=== PATIENT | male | born 1940 | race African-American/Black ===

== ENCOUNTER 2016-11-04 16:54 | Inpatient (IN) | payer MEDICARE, MEDICAID ==
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
[2016-11-04] MEDS ORDERED: Haloperidol Lactate 5 mg/mL 1mL Vial IM STA (17:17)
[2016-11-04] MEDS ORDERED: Haloperidol Lactate 5 mg/mL 1mL Vial ONE (17:34)
[2016-11-04 17:38] LABS: % BASOPHILS 0.2 % (0.0-2.0); % EOSINOPHILS 1.4 % (0.0-5.0); % LYMPHOCYTES 19.8 % (20.0-50.0); % MONOCYTES 7.3 % (2.0-10.0); % NEUTROPHILS 71.3 % (40.0-80.0); HEMATOCRIT 32.9 % (39.0-49.0); MEAN CELL VOLUME 83.4 fl (80-99); MEAN CORPUSCULAR HEMOGLOBIN 27.8 pg (27.0-31.0); MEAN CORPUSCULAR HGB CONC 33.4 pg (28.0-36.0); MEAN PLATELET VOLUME 6.8 fl; NEUTROPHILE ABSOLUTE 4.5 Th/cmm (1.8-8.0); PLATELET COUNT 304 Th/cmm (150-400); RED BLOOD COUNT 3.95 Mil/cmm (3.80-5.80); RED CELL DISTRIBUTION WIDTH 13.7 % (11.5-20.0); WHITE BLOOD COUNT 6.3 Th/cmm (4.8-10.8)
[2016-11-04 17:53] LABS: ACETAMINOPHEN < 10.0 ug/mL (10.0-30.0); ALB/GLOB RATIO 1.1 (1.0-1.8); ALKALINE PHOSPHATASE 58 U/L (34-104); ANION GAP 12.1 (7.0-16.0); BILIRUBIN,TOTAL 0.3 mg/dL (0.3-1.0); BUN - UREA NITROGEN 15 mg/dL (7-25); BUN/CREATININE RATIO 21.4; CALCIUM SERUM 9.9 mg/dL (8.6-10.3); CARBON DIOXIDE 26.7 mEq/L (21.0-31.0); CHLORIDE 97 mEq/L (98-107); CHOLESTEROL 131 mg/dL (<200); CREATININE - SERUM 0.7 mg/dL (0.7-1.3); GLUCOSE 122 mg/dL (70-105); POTASSIUM SERUM 3.8 mEq/L (3.5-5.1); SGOT 18 U/L (13-39); SGPT/ALT 14 U/L (7-52); SODIUM SERUM 132 mEq/L (136-145); TRIGLYCERIDES 53 mg/dL (<150)
[2016-11-04] MEDS ORDERED: Magnesium Hydroxide (MOM) 30 mL UDC PO PRN (20:34)
[2016-11-04] MEDS ORDERED: Maalox 30 mL Cup PO PRN (20:34)
[2016-11-04 21:18] LABS: AMPHETAMINE URINE NEGATIVE (NEGATIVE); BARBITURATES URINE NEGATIVE (NEGATIVE); METHADONE URINE NEGATIVE (NEGATIVE)
[2016-11-04] MEDS ORDERED: Albuterol Nebulizer 2.5mg/3mL HHN PRN (21:58)
[2016-11-04] MEDS ORDERED: Non-Formulary Item 1 EA (Meloxicam [Meloxicam] 7.5 MG) PO PRN (21:58)
--- NOTE | 2016-11-04 21:58 | Admit Criteria Form ---
Admit Criteria Forms - Admit Criteria Diagnosis: PSYCHIATRIC DISORDERS (Place 'X' for any and all applicable criteria): Ongoing inpatient care may be needed for 1 or more of the following(1)(2)(3)(4)( 6)(7)(8): [ ]I. Danger to self or others not manageable at lower level of care. [ ]II. Grave disability (eg, inability to perform self care necessary at lower level of care) [X ]III. Agitation or inappropriate behavior interfering with care for primary condition (eg, attempting to discontinue lines or drains prematurely, unable to cooperate with respiratory care) [ ]IV. Severe disability or disorder indicated by ALL of the following: [ ]a) Severe behavioral health disorder-related symptoms or condition indicated by 1 or more of the following: [ ]i) Severe problem with cognition, memory, judgment, or impulse control [ ]ii) Severe clinical manifestations (eg, hallucinations, delusions, other acute psychotic symptoms, johan, extreme agitation or anxiety) [ ]b) Patient management at lower level of care is not feasible until acute intervention or modification is initiated. Extended stay beyond goal length of stay for the primary condition may be needed until ALLof the following are present(1)(2)(3)(4)(722)(23): [ ]a) Danger to self or others is absent or manageable at lower level of care [ ]b) Behavior crisis management, including physical or chemical restraints, is required and is not available at a lower level of care. [ ]c) Behavioral symptoms (e.g., agitation, somnolence, inappropriate behavior) are present, and are not manageable at a lower level of care. [ ]d) Patient cannot understand follow-up treatment and crisis plan. [ ]e) Provider and supports are sufficiently available at lower level of care. [ ]f) Patient can participate (e.g., verify absence of plan for harm) and is in needed of monitoring. The original [facility] content created by [facility] [employer] has been revised. The portions of the content which have been revised are identified through the use of italic text or in bold, and [facility] [employer] has neither reviewed nor approved the modified material. All other unmodified content is copyright [facility]. Please see references footnoted in the original [facility] edition 2017 Admit Criteria Met?: Yes
[2016-11-04 22:05] LABS: URINE BILIRUBIN NEGATIVE (NEGATIVE); URINE BLOOD SMALL (NEGATIVE); URINE COLOR YELLOW; URINE GLUCOSE (UA) NEGATIVE (NEGATIVE); URINE KETONE NEGATIVE (NEGATIVE)
[2016-11-04 22:06] LABS: URINE BACTERIA NONE SEEN /hpf (NONE SEEN); URINE EPITHELIAL CELLS NONE SEEN /lpf (FEW); URINE PH 6.5; URINE PROTEIN NEGATIVE (NEGATIVE); URINE UROBILINOGEN 0.2 E.U./dL (0.2 - 1.0)
[2016-11-05] MEDS ORDERED: [UNRECOGNIZED DRUG - OTHER] PO SCH (09:00)
[2016-11-05] MEDS ORDERED: Non-Formulary Item 1 EA (Multivitamin [Multi-Day Vitamins] 1 TAB) PO SCH (09:00)
[2016-11-05] MEDS: Multivitamin Tab PO SCH (09:21)
--- NOTE | 2016-11-05 10:12 | Diagnostic Imaging Report ---
Portable chest x-ray HISTORY: Shortness of breath The heart is enlarged. There is a prominent aortic arch associated with atherosclerotic vascular calcification. No focal pulmonary processes. IMPRESSION: 1. No focal pulmonary processes 2. Cardiomegaly with atherosclerotic vascular changes
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
--- NOTE | 2016-11-05 13:41 | Internal Medicine Prog Note ---
Internal Medicine Subjective - Subjective Service Date: 11/05/16 ([facility] dictated [id number]) Internal Medicine Objective - Results Result Diagrams: 11/04/16 17:11/04/16 17: Recent Labs: Laboratory Last Values WBC 6.3 Th/cmm (4.8-10.8) 11/04/16 17: RBC 3.95 Mil/cmm (3.80-5.80) 11/04/16: Hgb 11.0 gm/dL (12.6-17.4) L 11/04/16: Hct 32.9 % (39.0-49.0) L 11/04/16: MCV 83.4 fl (80-99) 11/04/16: MCH 27.8 pg (27.0-31.0) 11/04/16: MCHC Differential 33.4 pg (28.0-36.0) 11/04/16: RDW 13.7 % (11.5-20.0) 11/04/16: Plt Count 304 Th/cmm (150-400) 11/04/16 17: MPV 6.8 fl 11/04/16 17: Neutrophils % 71.3 % (40.0-80.0) 11/04/16: Lymphocytes % 19.8 % (20.0-50.0) L 11/04/16: Monocytes % 7.3 % (2.0-10.0) 11/04/16: Eosinophils % 1.4 % (0.0-5.0) 11/04/16: Basophils % 0.2 % (0.0-2.0) 11/04/16 17: Sodium 132 mEq/L (136-145) L 11/04/16: Potassium 3.8 mEq/L (3.5-5.1) 11/04/16: Chloride 97 mEq/L (98-107) L 11/04/16 17: Carbon Dioxide 26.7 mEq/L (21.0-31.0) 11/04/16 17: Anion Gap 12.1 (7.0-16.0) 11/04/16 17: BUN 15 mg/dL (7-25) 11/04/16: Creatinine 0.7 mg/dL (0.7-1.3) 11/04/16: Est GFR ( Amer) TNP 11/04/16 17: Est GFR (Non-Af Amer) TNP 11/04/16: BUN/Creatinine Ratio 21.4 11/04/16: Glucose 122 mg/dL (70-105) H 11/04/16: Whole Bld Lactic Acid 2.70 mmol/L (0.60-1.99) H* 11/04/16: Calcium 9.9 mg/dL (8.6-10.3) 11/04/16: Total Bilirubin 0.3 mg/dL (0.3-1.0) 11/04/16: AST 18 U/L (13-39) 11/04/16: ALT 14 U/L (7-52) 11/04/16: Alkaline Phosphatase 58 U/L (34-104) 11/04/16: Troponin I 0.01 ng/mL (0.01-0.05) 11/04/16: Total Protein 7.5 gm/dL (6.0-8.3) 11/04/16: Albumin 3.9 gm/dL (4.2-5.5) L 11/04/16: Globulin 3.6 gm/dL 11/04/16: Albumin/Globulin Ratio 1.1 (1.0-1.8) 11/04/16: Triglycerides 53 mg/dL (<150) 11/04/16: Cholesterol 131 mg/dL (<200) 11/04/16: LDL Cholesterol Direct 66 mg/dL (75-193) L 11/04/16: HDL Cholesterol 50 mg/dL (23-92) 11/04/16: TSH 1.69 uIU/ml (0.34-5.60) 11/04/16: Urine Source RANDOM 11/04/16 20:00 Urine Color YELLOW 11/04/16 20:00 Urine Clarity CLEAR (CLEAR) 11/04/16 20:00 Urine pH 6.5 11/04/16 20:00 Ur Specific [place] 1.010 (1.005-1.030) 11/04/16 20:00 Urine Protein NEGATIVE mg/dL (NEGATIVE) 11/04/16 20:00 Urine Glucose (UA) NEGATIVE mg/dL (NEGATIVE) 11/04/16 20:00 Urine Ketones NEGATIVE mg/dL (NEGATIVE) 11/04/16 20:00 Urine Blood SMALL (NEGATIVE) H 11/04/16 20:00 Urine Nitrate NEGATIVE (NEGATIVE) 11/04/16 20:00 Urine Bilirubin NEGATIVE (NEGATIVE) 11/04/16 20:00 Urine Urobilinogen 0.2 E.U./dL (0.2 - 1.0) 11/04/16 20:00 Ur Leukocyte Esterase TRACE (NEGATIVE) H 11/04/16 20:00 Urine RBC 2-5 /hpf (0-5) H 11/04/16 20:00 Urine WBC 2-5 /hpf (0-5) H 11/04/16 20:00 Ur Epithelial Cells NONE SEEN /lpf (FEW) 11/04/16 20:00 Urine Bacteria NONE SEEN /hpf (NONE SEEN) 11/04/16 20:00 Salicylates < 25.0 mg/L (30.0-100.0) L 11/04/16 17:29 Urine Opiates Screen NEGATIVE (NEGATIVE) 11/04/16 20:00 Urine Methadone Screen NEGATIVE (NEGATIVE) 11/04/16 20:00 Acetaminophen < 10.0 ug/mL (10.0-30.0) L 11/04/16 17:29 Ur Barbiturates Screen NEGATIVE (NEGATIVE) 11/04/16 20:00 Ur Tricyclics Screen NEGATIVE (NEGATIVE) 11/04/16 20:00 Ur Phencyclidine Scrn NEGATIVE (NEGATIVE) 11/04/16 20:00 Amphetamines Screen NEGATIVE (NEGATIVE) 11/04/16 20:00 U Methamphetamines Scrn NEGATIVE (NEGATIVE) 11/04/16 20:00 U Benzodiazepines Scrn NEGATIVE (NEGATIVE) 11/04/16 20:00 U Cocaine Metab Screen NEGATIVE (NEGATIVE) 11/04/16 20:00 U Cannabinoids Screen NEGATIVE (NEGATIVE) 11/04/16 20:00 Ethyl Alcohol < 10 mg/dL (0-10) 11/04/16 17:29 - Physical Exam Vitals and I&O: Vital Signs Temp 98.2 F 11/05/16 06:42 Pulse 75 11/05/16 09:20 Resp 75 11/05/16 09:42 BP 131/83 11/05/16 09:20 Pulse Ox 98 11/05/16 06:42 Intake & Output 11/04/16 11/05/16 11/05/16 18:59 06:59 18:59 Intake Total 120 Balance 120 Intake: Oral 120 Other: # Voids 3 Active Medications: Current Medications Acetaminophen (Tylenol) 650 mg PO Q4HR PRN PRN Reason: Mild Pain / Temp above 100 Stop: 01/03/17 20:33 Al Hydrox/Mg Hydrox/Simethicone (Maalox) 30 ml PO Q4HR PRN PRN Reason: GI DISTRESS Stop: 01/03/17 20:33 Albuterol Sulfate (Albuterol 2.5mg/3ml Neb Ud) 2.5 mg HHN Q4H PRN PRN Reason: sob Albuterol Sulfate (Albuterol 2.5mg/3ml Neb Ud) 2.5 mg HHN Q6HRT [facility] Stop: 01/04/17 09:59 Amlodipine Besylate (Norvasc) 5 mg PO DAILY JOHN Stop: 01/04/17 08:59 Aspirin (Ecotrin) 81 mg PO DAILY [facility] Stop: 01/04/17 08:59 Last Admin: 11/05/16 09:20 Dose: 81 mg Atorvastatin Calcium (Lipitor) 20 mg PO DAILY [facility] Stop: 01/04/17 09:59 Benazepril HCl (Lotensin) 20 mg PO DAILY JOHN Stop: 01/04/17 08:59 Last Admin: 11/05/16 09:20 Dose: 20 mg Budesonide (Pulmicort) 0.5 mg HHN BIDRT [facility] Stop: 01/04/17 10:59 Divalproex Sodium (Depakote Dr) 500 mg PO BID JOHN PRN Reason: Protocol Stop: 01/04/17 08:59 Last Admin: 11/05/16 09:21 Dose: 500 mg Docusate Sodium (Colace) 100 mg PO BID PRN PRN Reason: Constipation Finasteride (Proscar) 5 mg PO DAILY JOHN PRN Reason: Protocol Stop: 01/04/17 08:59 Last Admin: 11/05/16 09:21 Dose: 5 mg Ipratropium [place] (Atrovent Neb 0.5mg/2.5ml) 0.5 mg HHN Q6HRT JOHN Stop: 01/04/17 09:59 Loperamide HCl (Imodium) 2 mg PO PRN PRN PRN Reason: Diarrhea Stop: 01/03/17 21:57 Lorazepam (Ativan) 0.5 mg PO Q4HR PRN; Protocol PRN Reason: Anxiety Stop: 12/04/16 20:33 Magnesium Hydroxide (Milk Of Magnesia) 30 ml PO HS PRN PRN Reason: Constipation Miscellaneous (Meloxicam [Meloxicam]) 7.5 mg PO DAILY PRN PRN Reason: Pain (Mild) Multivitamins/Vitamin C (Theragran) 1 tab PO DAILY JOHN Stop: 01/04/17 08:59 Last Admin: 11/05/16 09:21 Dose: 1 tab Tamsulosin HCl (Flomax) 0.4 mg PO DAILY JOHN Stop: 01/04/17 08:59 Last Admin: 11/05/16 09:20 Dose: 0.4 mg Zolpidem Tartrate (Ambien) 5 mg PO HSMR1 PRN PRN Reason: Insomnia Stop: 01/03/17 20:33 Internal Medicine Assmt/Plan - Assessment Assessment: HTN hx cva/tia schizophrenia hyponatremia
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
--- NOTE | 2016-11-05 15:02 | Diagnostic Imaging Report ---
CT scan of the brain without intravenous contrast HISTORY: Headache Total DLP equals 663 CTDI equals 36.7 Axial sections were obtained from the base of the skull to the vertex. There is marked enlargement of ventricular system along with the marked enlargement of cerebral sulci and subarachnoid cisterns reflecting severe generalized atrophy. A small hypodense focus is seen in the right basal ganglia region most likely related to an old lacunar infarct. No acute parenchymal abnormalities. No intracerebral hemorrhage. No mass effect or shift of midline structures. There is a large cisterna magna. No other extra-axial masses or abnormal fluid collections. IMPRESSION: 1. No acute abnormalities 2. Severe generalized cerebral atrophy 3. Small focus in the right basal ganglia region consistent with an old lacunar infarct
[2016-11-05] MEDS: Atorvastatin Calcium 10 MG TAB PO SCH (16:35)
[2016-11-06] MEDS: Atorvastatin Calcium 10 MG TAB PO SCH (09:23)
[2016-11-06] MEDS: Multivitamin Tab PO SCH (09:23)
--- NOTE | 2016-11-06 12:59 | Internal Medicine Prog Note ---
Internal Medicine Subjective - Subjective Service Date: 11/06/16 (called pt's ghadapernell Rehmanne, and relayed CT head results) Patient seen and examined:: with staff Patient is:: awake Per staff patient has:: refusing care, refusing labs Internal Medicine Objective - Results Result Diagrams: 11/04/16 17:11/04/16 17: Recent Labs: Laboratory Last Values WBC 6.3 Th/cmm (4.8-10.8) 11/04/16: RBC 3.95 Mil/cmm (3.80-5.80) 11/04/16 17: Hgb 11.0 gm/dL (12.6-17.4) L 11/04/16: Hct 32.9 % (39.0-49.0) L 11/04/16: MCV 83.4 fl (80-99) 11/04/16: MCH 27.8 pg (27.0-31.0) 11/04/16: MCHC Differential 33.4 pg (28.0-36.0) 11/04/16: RDW 13.7 % (11.5-20.0) 11/04/16: Plt Count 304 Th/cmm (150-400) 11/04/16: MPV 6.8 fl 11/04/16: Neutrophils % 71.3 % (40.0-80.0) 11/04/16: Lymphocytes % 19.8 % (20.0-50.0) L 11/04/16: Monocytes % 7.3 % (2.0-10.0) 11/04/16 17: Eosinophils % 1.4 % (0.0-5.0) 11/04/16: Basophils % 0.2 % (0.0-2.0) 11/04/16 17: Sodium 132 mEq/L (136-145) L 11/04/16 17: Potassium 3.8 mEq/L (3.5-5.1) 11/04/16: Chloride 97 mEq/L (98-107) L 11/04/16: Carbon Dioxide 26.7 mEq/L (21.0-31.0) 11/04/16 17: Anion Gap 12.1 (7.0-16.0) 11/04/16 17: BUN 15 mg/dL (7-25) 11/04/16 17: Creatinine 0.7 mg/dL (0.7-1.3) 11/04/16 17: Est GFR ( Amer) TNP 11/04/16 17: Est GFR (Non-Af Amer) TNP 11/04/16 17: BUN/Creatinine Ratio 21.4 11/04/16 17: Glucose 122 mg/dL (70-105) H 11/04/16 17: Whole Bld Lactic Acid 2.70 mmol/L (0.60-1.99) H* 11/04/16: Calcium 9.9 mg/dL (8.6-10.3) 11/04/16: Total Bilirubin 0.3 mg/dL (0.3-1.0) 11/04/16: AST 18 U/L (13-39) 11/04/16: ALT 14 U/L (7-52) 11/04/16 17: Alkaline Phosphatase 58 U/L (34-104) 11/04/16: Troponin I 0.01 ng/mL (0.01-0.05) 11/04/16 17: Total Protein 7.5 gm/dL (6.0-8.3) 11/04/16: Albumin 3.9 gm/dL (4.2-5.5) L 11/04/16: Globulin 3.6 gm/dL 11/04/16: Albumin/Globulin Ratio 1.1 (1.0-1.8) 11/04/16 17: Triglycerides 53 mg/dL (<150) 11/04/16 17: Cholesterol 131 mg/dL (<200) 11/04/16 17: LDL Cholesterol Direct 66 mg/dL (75-193) L 11/04/16 17: HDL Cholesterol 50 mg/dL (23-92) 11/04/16: TSH 1.69 uIU/ml (0.34-5.60) 11/04/16 17: Urine Source RANDOM 11/04/16 20:00 Urine Color YELLOW 11/04/16 20:00 Urine Clarity CLEAR (CLEAR) 11/04/16 20:00 Urine pH 6.5 11/04/16 20:00 Ur Specific [place] 1.010 (1.005-1.030) 11/04/16 20:00 Urine Protein NEGATIVE mg/dL (NEGATIVE) 11/04/16 20:00 Urine Glucose (UA) NEGATIVE mg/dL (NEGATIVE) 11/04/16 20:00 Urine Ketones NEGATIVE mg/dL (NEGATIVE) 11/04/16 20:00 Urine Blood SMALL (NEGATIVE) H 11/04/16 20:00 Urine Nitrate NEGATIVE (NEGATIVE) 11/04/16 20:00 Urine Bilirubin NEGATIVE (NEGATIVE) 11/04/16 20:00 Urine Urobilinogen 0.2 E.U./dL (0.2 - 1.0) 11/04/16 20:00 Ur Leukocyte Esterase TRACE (NEGATIVE) H 11/04/16 20:00 Urine RBC 2-5 /hpf (0-5) H 11/04/16 20:00 Urine WBC 2-5 /hpf (0-5) H 11/04/16 20:00 Ur Epithelial Cells NONE SEEN /lpf (FEW) 11/04/16 20:00 Urine Bacteria NONE SEEN /hpf (NONE SEEN) 11/04/16 20:00 Salicylates < 25.0 mg/L (30.0-100.0) L 11/04/16 17:29 Urine Opiates Screen NEGATIVE (NEGATIVE) 11/04/16 20:00 Urine Methadone Screen NEGATIVE (NEGATIVE) 11/04/16 20:00 Acetaminophen < 10.0 ug/mL (10.0-30.0) L 11/04/16 17:29 Ur Barbiturates Screen NEGATIVE (NEGATIVE) 11/04/16 20:00 Valproic Acid 46.1 ug/mL (50.0-100.0) L 11/06/16 10:55 Ur Tricyclics Screen NEGATIVE (NEGATIVE) 11/04/16 20:00 Ur Phencyclidine Scrn NEGATIVE (NEGATIVE) 11/04/16 20:00 Amphetamines Screen NEGATIVE (NEGATIVE) 11/04/16 20:00 U Methamphetamines Scrn NEGATIVE (NEGATIVE) 11/04/16 20:00 U Benzodiazepines Scrn NEGATIVE (NEGATIVE) 11/04/16 20:00 U Cocaine Metab Screen NEGATIVE (NEGATIVE) 11/04/16 20:00 U Cannabinoids Screen NEGATIVE (NEGATIVE) 11/04/16 20:00 Ethyl Alcohol < 10 mg/dL (0-10) 11/04/16 17:29 RPR NONREACTIVE (NONREACTIVE) 11/04/16 17:29 - Physical Exam Vitals and I&O: Vital Signs Temp 98.2 F 11/06/16 06:32 Pulse 83 11/06/16 09:23 Resp 20 11/06/16 06:32 BP 122/68 11/06/16 09:23 Pulse Ox 100 11/06/16 06:32 Intake & Output 11/05/16 11/06/16 11/06/16 18:59 06:59 18:59 Intake Total 440 Balance 440 Intake: Oral 440 Other: # Voids 3 Active Medications: Current Medications Acetaminophen (Tylenol) 650 mg PO Q4HR PRN PRN Reason: Mild Pain / Temp above 100 Stop: 01/03/17 20:33 Last Admin: 11/06/16 03:55 Dose: 650 mg Al Hydrox/Mg Hydrox/Simethicone (Maalox) 30 ml PO Q4HR PRN PRN Reason: GI DISTRESS Stop: 01/03/17 20:33 Albuterol Sulfate (Albuterol 2.5mg/3ml Neb Ud) 2.5 mg HHN Q4H PRN PRN Reason: sob Albuterol Sulfate (Albuterol 2.5mg/3ml Neb Ud) 2.5 mg HHN Q6HRT [facility] Stop: 01/04/17 09:59 Amlodipine Besylate (Norvasc) 5 mg PO DAILY [facility] Stop: 01/04/17 08:59 Last Admin: 11/06/16 09:23 Dose: Not Given Aspirin (Ecotrin) 81 mg PO DAILY [facility] Stop: 01/04/17 08:59 Last Admin: 11/06/16 09:22 Dose: Not Given Atorvastatin Calcium (Lipitor) 20 mg PO DAILY [facility] Stop: 01/04/17 09:59 Last Admin: 11/06/16 09:23 Dose: Not Given Benazepril HCl (Lotensin) 20 mg PO DAILY [facility] Stop: 01/04/17 08:59 Last Admin: 11/06/16 09:22 Dose: Not Given Budesonide (Pulmicort) 0.5 mg HHN BIDRT [facility] Stop: 01/04/17 10:59 Divalproex Sodium (Depakote Dr) 500 mg PO BID JOHN PRN Reason: Protocol Stop: 01/04/17 08:59 Last Admin: 11/06/16 09:33 Dose: Not Given Docusate Sodium (Colace) 100 mg PO BID PRN PRN Reason: Constipation Finasteride (Proscar) 5 mg PO DAILY JOHN PRN Reason: Protocol Stop: 01/04/17 08:59 Last Admin: 11/06/16 09:22 Dose: Not Given Ibuprofen (Motrin) 600 mg PO BID [facility] Stop: 01/05/17 08:59 Last Admin: 11/06/16 09:21 Dose: Not Given Ipratropium [place] (Atrovent Neb 0.5mg/2.5ml) 0.5 mg HHN Q6HRT [facility] Stop: 01/04/17 09:59 Loperamide HCl (Imodium) 2 mg PO PRN PRN PRN Reason: Diarrhea Stop: 01/03/17 21:57 Lorazepam (Ativan) 0.5 mg PO Q4HR PRN; Protocol PRN Reason: Anxiety Stop: 12/04/16 20:33 Last Admin: 11/06/16 09:22 Dose: 0.5 mg Magnesium Hydroxide (Milk Of Magnesia) 30 ml PO HS PRN PRN Reason: Constipation Multivitamins/Vitamin C (Theragran) 1 tab PO DAILY [facility] Stop: 01/04/17 08:59 Last Admin: 11/06/16 09:23 Dose: Not Given Tamsulosin HCl (Flomax) 0.4 mg PO DAILY [facility] Stop: 01/04/17 08:59 Last Admin: 11/06/16 09:22 Dose: Not Given Zolpidem Tartrate (Ambien) 5 mg PO HSMR1 PRN PRN Reason: Insomnia Stop: 01/03/17 20:33 General: alert HEENT: NC/AT, PERRLA Lungs: CTAB Cardiovascular: RRR, Normal S1, Normal S2, without murmur Abdomen: soft, non-tender, non-distended, positive bowel sound Extremities: clear Neurological: no change Internal Medicine Assmt/Plan - Assessment Assessment: HTN hx cva/tia schizophrenia hyponatremia - Plan Plan: fall precautions continue current tx
[2016-11-06] MEDS ORDERED: Haloperidol Lactate 5 mg/mL 1mL Vial ONE (15:08)
[2016-11-06] MEDS ORDERED: Haloperidol Lactate 5 mg/mL 1mL Vial IM STA (15:08)
--- NOTE | 2016-11-06 22:17 | Progress Notes ---
DATE: 11/06/2016 SUBJECTIVE: Chart reviewed and the patient interviewed. Also discussed the patient's condition with the staff and reviewed records and labs. The patient is still confused and is still forgetful and irritability. The patient also still needs lots of redirections and the patient was noted by staff walking naked. Also had episodes of agitation, irritability and needed lots of redirections. He also is still restless and he is still disheveled. Otherwise, the patient is compliant with taking his Depakote with no side effect of Depakote. ASSESSMENT: The patient is still confused and agitated. TREATMENT PLAN: We will continue monitoring his behavior and his condition closely. Also, continue to work on his confusion and adjusting psychotropic medications. Also, we will get a Depakote blood level. JOB# [id number]
[2016-11-07] MEDS: Atorvastatin Calcium 10 MG TAB PO SCH (09:56)
[2016-11-07] MEDS: Multivitamin Tab PO SCH (09:57)
--- NOTE | 2016-11-07 12:20 | Internal Medicine Prog Note ---
Internal Medicine Subjective - Subjective Service Date: 11/07/16 Patient is:: awake Per staff patient has:: refusing care, refusing labs Internal Medicine Objective - Results Result Diagrams: 11/04/16 17:11/04/16 17: Recent Labs: Laboratory Last Values WBC 6.3 Th/cmm (4.8-10.8) 11/04/16 17: RBC 3.95 Mil/cmm (3.80-5.80) 11/04/16 17: Hgb 11.0 gm/dL (12.6-17.4) L 11/04/16 17: Hct 32.9 % (39.0-49.0) L 11/04/16: MCV 83.4 fl (80-99) 11/04/16 17: MCH 27.8 pg (27.0-31.0) 11/04/16: MCHC Differential 33.4 pg (28.0-36.0) 11/04/16: RDW 13.7 % (11.5-20.0) 11/04/16: Plt Count 304 Th/cmm (150-400) 11/04/16 17: MPV 6.8 fl 11/04/16 17: Neutrophils % 71.3 % (40.0-80.0) 11/04/16: Lymphocytes % 19.8 % (20.0-50.0) L 11/04/16: Monocytes % 7.3 % (2.0-10.0) 11/04/16: Eosinophils % 1.4 % (0.0-5.0) 11/04/16 17: Basophils % 0.2 % (0.0-2.0) 11/04/16 17: Sodium 132 mEq/L (136-145) L 11/04/16 17: Potassium 3.8 mEq/L (3.5-5.1) 11/04/16 17: Chloride 97 mEq/L (98-107) L 11/04/16: Carbon Dioxide 26.7 mEq/L (21.0-31.0) 11/04/16: Anion Gap 12.1 (7.0-16.0) 11/04/16 17: BUN 15 mg/dL (7-25) 11/04/16 17: Creatinine 0.7 mg/dL (0.7-1.3) 11/04/16 17: Est GFR ( Amer) TNP 11/04/16 17: Est GFR (Non-Af Amer) TNP 11/04/16: BUN/Creatinine Ratio 21.4 11/04/16: Glucose 122 mg/dL (70-105) H 11/04/16 17: Whole Bld Lactic Acid 2.70 mmol/L (0.60-1.99) H* 11/04/16: Calcium 9.9 mg/dL (8.6-10.3) 11/04/16: Total Bilirubin 0.3 mg/dL (0.3-1.0) 11/04/16: AST 18 U/L (13-39) 11/04/16: ALT 14 U/L (7-52) 11/04/16: Alkaline Phosphatase 58 U/L (34-104) 11/04/16: Troponin I 0.01 ng/mL (0.01-0.05) 11/04/16: Total Protein 7.5 gm/dL (6.0-8.3) 11/04/16: Albumin 3.9 gm/dL (4.2-5.5) L 11/04/16: Globulin 3.6 gm/dL 11/04/16: Albumin/Globulin Ratio 1.1 (1.0-1.8) 11/04/16: Triglycerides 53 mg/dL (<150) 11/04/16 17: Cholesterol 131 mg/dL (<200) 11/04/16: LDL Cholesterol Direct 66 mg/dL (75-193) L 11/04/16: HDL Cholesterol 50 mg/dL (23-92) 11/04/16: TSH 1.69 uIU/ml (0.34-5.60) 11/04/16: Urine Source RANDOM 11/04/16 20:00 Urine Color YELLOW 11/04/16 20:00 Urine Clarity CLEAR (CLEAR) 11/04/16 20:00 Urine pH 6.5 11/04/16 20:00 Ur Specific [place] 1.010 (1.005-1.030) 11/04/16 20:00 Urine Protein NEGATIVE mg/dL (NEGATIVE) 11/04/16 20:00 Urine Glucose (UA) NEGATIVE mg/dL (NEGATIVE) 11/04/16 20:00 Urine Ketones NEGATIVE mg/dL (NEGATIVE) 11/04/16 20:00 Urine Blood SMALL (NEGATIVE) H 11/04/16 20:00 Urine Nitrate NEGATIVE (NEGATIVE) 11/04/16 20:00 Urine Bilirubin NEGATIVE (NEGATIVE) 11/04/16 20:00 Urine Urobilinogen 0.2 E.U./dL (0.2 - 1.0) 11/04/16 20:00 Ur Leukocyte Esterase TRACE (NEGATIVE) H 11/04/16 20:00 Urine RBC 2-5 /hpf (0-5) H 11/04/16 20:00 Urine WBC 2-5 /hpf (0-5) H 11/04/16 20:00 Ur Epithelial Cells NONE SEEN /lpf (FEW) 11/04/16 20:00 Urine Bacteria NONE SEEN /hpf (NONE SEEN) 11/04/16 20:00 Salicylates < 25.0 mg/L (30.0-100.0) L 11/04/16 17:29 Urine Opiates Screen NEGATIVE (NEGATIVE) 11/04/16 20:00 Urine Methadone Screen NEGATIVE (NEGATIVE) 11/04/16 20:00 Acetaminophen < 10.0 ug/mL (10.0-30.0) L 11/04/16 17:29 Ur Barbiturates Screen NEGATIVE (NEGATIVE) 11/04/16 20:00 Valproic Acid 46.1 ug/mL (50.0-100.0) L 11/06/16 10:55 Ur Tricyclics Screen NEGATIVE (NEGATIVE) 11/04/16 20:00 Ur Phencyclidine Scrn NEGATIVE (NEGATIVE) 11/04/16 20:00 Amphetamines Screen NEGATIVE (NEGATIVE) 11/04/16 20:00 U Methamphetamines Scrn NEGATIVE (NEGATIVE) 11/04/16 20:00 U Benzodiazepines Scrn NEGATIVE (NEGATIVE) 11/04/16 20:00 U Cocaine Metab Screen NEGATIVE (NEGATIVE) 11/04/16 20:00 U Cannabinoids Screen NEGATIVE (NEGATIVE) 11/04/16 20:00 Ethyl Alcohol < 10 mg/dL (0-10) 11/04/16 17:29 RPR NONREACTIVE (NONREACTIVE) 11/04/16 17:29 - Physical Exam Vitals and I&O: Vital Signs Temp 98.1 F 11/07/16 05:59 Pulse 65 11/07/16 09:56 Resp 19 11/07/16 05:59 BP 125/71 11/07/16 09:56 Pulse Ox 97 11/07/16 05:59 Intake & Output 11/06/16 11/07/16 11/07/16 18:59 06:59 18:59 Intake Total 960 180 Balance 960 180 Intake: Oral 960 180 Other: # Voids 4 1 # Bowel Movements 1 0 Active Medications: Current Medications Acetaminophen (Tylenol) 650 mg PO Q4HR PRN PRN Reason: Mild Pain / Temp above 100 Stop: 01/03/17 20:33 Last Admin: 11/06/16 03:55 Dose: 650 mg Al Hydrox/Mg Hydrox/Simethicone (Maalox) 30 ml PO Q4HR PRN PRN Reason: GI DISTRESS Stop: 01/03/17 20:33 Albuterol Sulfate (Albuterol 2.5mg/3ml Neb Ud) 2.5 mg HHN Q4H PRN PRN Reason: sob Albuterol Sulfate (Albuterol 2.5mg/3ml Neb Ud) 2.5 mg HHN Q6HRT [facility] Stop: 01/04/17 09:59 Amlodipine Besylate (Norvasc) 5 mg PO DAILY [facility] Stop: 01/04/17 08:59 Last Admin: 11/07/16 09:56 Dose: 5 mg Aspirin (Ecotrin) 81 mg PO DAILY [facility] Stop: 01/04/17 08:59 Last Admin: 11/07/16 09:57 Dose: 81 mg Atorvastatin Calcium (Lipitor) 20 mg PO DAILY [facility] Stop: 01/04/17 09:59 Last Admin: 11/07/16 09:56 Dose: 20 mg Benazepril HCl (Lotensin) 20 mg PO DAILY [facility] Stop: 01/04/17 08:59 Last Admin: 11/07/16 09:56 Dose: 20 mg Budesonide (Pulmicort) 0.5 mg HHN BIDRT [facility] Stop: 01/04/17 10:59 Divalproex Sodium (Depakote Dr) 500 mg PO BID JOHN PRN Reason: Protocol Stop: 01/04/17 08:59 Last Admin: 11/07/16 09:57 Dose: 500 mg Docusate Sodium (Colace) 100 mg PO BID PRN PRN Reason: Constipation Finasteride (Proscar) 5 mg PO DAILY JOHN PRN Reason: Protocol Stop: 01/04/17 08:59 Last Admin: 11/07/16 09:57 Dose: 5 mg Ibuprofen (Motrin) 600 mg PO BID JOHN Stop: 01/05/17 08:59 Last Admin: 11/07/16 09:57 Dose: 600 mg Ipratropium [place] (Atrovent Neb 0.5mg/2.5ml) 0.5 mg HHN Q6HRT [facility] Stop: 01/04/17 09:59 Loperamide HCl (Imodium) 2 mg PO PRN PRN PRN Reason: Diarrhea Stop: 01/03/17 21:57 Lorazepam (Ativan) 0.5 mg PO Q4HR PRN; Protocol PRN Reason: Anxiety Stop: 12/04/16 20:33 Last Admin: 11/06/16 09:22 Dose: 0.5 mg Magnesium Hydroxide (Milk Of Magnesia) 30 ml PO HS PRN PRN Reason: Constipation Multivitamins/Vitamin C (Theragran) 1 tab PO DAILY [facility] Stop: 01/04/17 08:59 Last Admin: 11/07/16 09:57 Dose: 1 tab Tamsulosin HCl (Flomax) 0.4 mg PO DAILY [facility] Stop: 01/04/17 08:59 Last Admin: 11/07/16 09:57 Dose: 0.4 mg Zolpidem Tartrate (Ambien) 5 mg PO HSMR1 PRN PRN Reason: Insomnia Stop: 01/03/17 20:33 Last Admin: 11/06/16 21:12 Dose: 5 mg General: alert HEENT: NC/AT, PERRLA Lungs: CTAB Cardiovascular: RRR, Normal S1, Normal S2, without murmur Abdomen: soft, non-tender, non-distended, positive bowel sound Extremities: clear Neurological: no change Internal Medicine Assmt/Plan - Assessment Assessment: HTN hx cva/tia schizophrenia hyponatremia - Plan Plan: fall precautions continue current tx Nutritional Asmnt/Malnutr-PDOC - Dietary Evaluation Malnutrition Findings (Please click <Entered> for more info): Nutritional Asmnt/Malnutrition Start: 11/06/16 17: 19 Text: Status: Complete Freq: Document 11/06/16 17:19 GSUN (Rec: 11/06/16 17:25 [email or web address] [email or web address]) Nutritional Asmnt/Malnutrition Patient General Information Nutritional Screening Moderate Risk Screening Diagnosis Unspecified psychosis, 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 Pt ambulates in wheelchair. Pt is talkative, however difficult to understand, unclear speech vs. dx mild to moderate mental retardation. Spoek to pt during meal time in rec room, pt was focused on eating, was only able to tell RD "I want some cake." Pt is edentulous, P[employer] denied difficulties chewing/swallowing. No significant wasting noted. Avg PO intake 100% of meals since adm, meeting nutritional needs. Current Diet Order/ Nutrition Support Low sodium Pertinent Medications Lipitor, Colace, MOM, Theragran Pertinent Labs 11/04: glucose 122H Nutritional Hx/Data Height 6 in Height (Calculated Centimeters) 15.2 Current Weight (lbs) 160 lb Weight (Calculated Kilograms) 72.6 Weight (Calculated Grams) 83590.8 [place] Body Weight 178 Weight Status Approriate GI Symptoms Food Allergies No Skin Integrity/Comment: Earnest Gage. Skin intact. Current %PO Good (75-100%) Estimated Nutritional Goals BEE in Kcals: Using Current wt Calories/Kcals/Kg CBW 160lb/72.7kg Kcals Calculated 1818-2181kcal (25-30kcal/kg) Protein: Using Current wt Protein Calculated 73g (1g/kg) Fluid: ml 1818-2181ml (1ml/kcal) Nutritional Problem 1. Problem Problem No nutritional problem at this time. Intervention/Recommendation Comments 1. Continue with current diet order. Avg PO intake is adequate. Expected Outcomes/Goals Expected Outcomes/Goals 1. PO intake continue to meet at least 75% of estimated nutritional needs.
--- NOTE | 2016-11-08 02:34 | Progress Notes ---
DATE: 11/07/2016 SUBJECTIVE: Chart reviewed and the patient interviewed. Also discussed the patient's condition with the staff and reviewed records and labs. The patient is still agitated and easily irritable. The patient also still needs lots of redirections. The patient also is still in angry mood and he is still intrusive to others. He also still has difficulty following directions between his agitation as well as his mental ability. ASSESSMENT: The patient is still agitated and psychotic. TREATMENT PLAN: Continue to monitor his behavior and his condition closely. Also, continue to work on his poor impulse control and adjusting his psychotropic medications. JOB# [id number]
[2016-11-08] MEDS: Budesonide 0.5 Mg/2 mL Ud HHN SCH ×2 (06:56→07:01)
[2016-11-08] MEDS: Albuterol Nebulizer 2.5mg/3mL HHN SCH ×2 (06:56→07:02)
[2016-11-08] MEDS: Atorvastatin Calcium 10 MG TAB PO SCH (08:10)
[2016-11-08] MEDS: Multivitamin Tab PO SCH (08:11)
--- NOTE | 2016-11-08 11:27 | Internal Medicine Prog Note ---
Internal Medicine Subjective - Subjective Service Date: 11/08/16 Patient is:: awake Per staff patient has:: refusing care, refusing labs Internal Medicine Objective - Results Result Diagrams: 11/04/16 17:11/04/16 17: Recent Labs: Laboratory Last Values WBC 6.3 Th/cmm (4.8-10.8) 11/04/16 17: RBC 3.95 Mil/cmm (3.80-5.80) 11/04/16 17: Hgb 11.0 gm/dL (12.6-17.4) L 11/04/16 17: Hct 32.9 % (39.0-49.0) L 11/04/16: MCV 83.4 fl (80-99) 11/04/16: MCH 27.8 pg (27.0-31.0) 11/04/16: MCHC Differential 33.4 pg (28.0-36.0) 11/04/16: RDW 13.7 % (11.5-20.0) 11/04/16: Plt Count 304 Th/cmm (150-400) 11/04/16 17: MPV 6.8 fl 11/04/16 17: Neutrophils % 71.3 % (40.0-80.0) 11/04/16: Lymphocytes % 19.8 % (20.0-50.0) L 11/04/16: Monocytes % 7.3 % (2.0-10.0) 11/04/16: Eosinophils % 1.4 % (0.0-5.0) 11/04/16: Basophils % 0.2 % (0.0-2.0) 11/04/16 17: Sodium 132 mEq/L (136-145) L 11/04/16 17: Potassium 3.8 mEq/L (3.5-5.1) 11/04/16 17: Chloride 97 mEq/L (98-107) L 11/04/16: Carbon Dioxide 26.7 mEq/L (21.0-31.0) 11/04/16: Anion Gap 12.1 (7.0-16.0) 11/04/16 17: BUN 15 mg/dL (7-25) 11/04/16 17: Creatinine 0.7 mg/dL (0.7-1.3) 11/04/16 17: Est GFR ( Amer) TNP 11/04/16 17: Est GFR (Non-Af Amer) TNP 11/04/16: BUN/Creatinine Ratio 21.4 11/04/16: Glucose 122 mg/dL (70-105) H 11/04/16 17: Whole Bld Lactic Acid 2.70 mmol/L (0.60-1.99) H* 11/04/16: Calcium 9.9 mg/dL (8.6-10.3) 11/04/16: Total Bilirubin 0.3 mg/dL (0.3-1.0) 11/04/16: AST 18 U/L (13-39) 11/04/16: ALT 14 U/L (7-52) 11/04/16: Alkaline Phosphatase 58 U/L (34-104) 11/04/16: Troponin I 0.01 ng/mL (0.01-0.05) 11/04/16: Total Protein 7.5 gm/dL (6.0-8.3) 11/04/16: Albumin 3.9 gm/dL (4.2-5.5) L 11/04/16: Globulin 3.6 gm/dL 11/04/16: Albumin/Globulin Ratio 1.1 (1.0-1.8) 11/04/16: Triglycerides 53 mg/dL (<150) 11/04/16 17: Cholesterol 131 mg/dL (<200) 11/04/16: LDL Cholesterol Direct 66 mg/dL (75-193) L 11/04/16: HDL Cholesterol 50 mg/dL (23-92) 11/04/16: TSH 1.69 uIU/ml (0.34-5.60) 11/04/16: Urine Source RANDOM 11/04/16 20:00 Urine Color YELLOW 11/04/16 20:00 Urine Clarity CLEAR (CLEAR) 11/04/16 20:00 Urine pH 6.5 11/04/16 20:00 Ur Specific [place] 1.010 (1.005-1.030) 11/04/16 20:00 Urine Protein NEGATIVE mg/dL (NEGATIVE) 11/04/16 20:00 Urine Glucose (UA) NEGATIVE mg/dL (NEGATIVE) 11/04/16 20:00 Urine Ketones NEGATIVE mg/dL (NEGATIVE) 11/04/16 20:00 Urine Blood SMALL (NEGATIVE) H 11/04/16 20:00 Urine Nitrate NEGATIVE (NEGATIVE) 11/04/16 20:00 Urine Bilirubin NEGATIVE (NEGATIVE) 11/04/16 20:00 Urine Urobilinogen 0.2 E.U./dL (0.2 - 1.0) 11/04/16 20:00 Ur Leukocyte Esterase TRACE (NEGATIVE) H 11/04/16 20:00 Urine RBC 2-5 /hpf (0-5) H 11/04/16 20:00 Urine WBC 2-5 /hpf (0-5) H 11/04/16 20:00 Ur Epithelial Cells NONE SEEN /lpf (FEW) 11/04/16 20:00 Urine Bacteria NONE SEEN /hpf (NONE SEEN) 11/04/16 20:00 Salicylates < 25.0 mg/L (30.0-100.0) L 11/04/16 17:29 Urine Opiates Screen NEGATIVE (NEGATIVE) 11/04/16 20:00 Urine Methadone Screen NEGATIVE (NEGATIVE) 11/04/16 20:00 Acetaminophen < 10.0 ug/mL (10.0-30.0) L 11/04/16 17:29 Ur Barbiturates Screen NEGATIVE (NEGATIVE) 11/04/16 20:00 Valproic Acid 46.1 ug/mL (50.0-100.0) L 11/06/16 10:55 Ur Tricyclics Screen NEGATIVE (NEGATIVE) 11/04/16 20:00 Ur Phencyclidine Scrn NEGATIVE (NEGATIVE) 11/04/16 20:00 Amphetamines Screen NEGATIVE (NEGATIVE) 11/04/16 20:00 U Methamphetamines Scrn NEGATIVE (NEGATIVE) 11/04/16 20:00 U Benzodiazepines Scrn NEGATIVE (NEGATIVE) 11/04/16 20:00 U Cocaine Metab Screen NEGATIVE (NEGATIVE) 11/04/16 20:00 U Cannabinoids Screen NEGATIVE (NEGATIVE) 11/04/16 20:00 Ethyl Alcohol < 10 mg/dL (0-10) 11/04/16 17:29 RPR NONREACTIVE (NONREACTIVE) 11/04/16 17:29 - Physical Exam Vitals and I&O: Vital Signs Temp 98.4 F 11/07/16 16:39 Pulse 67 11/08/16 07:00 Resp 16 11/08/16 07:00 BP 110/59 11/07/16 16:39 Pulse Ox 100 11/08/16 07:00 Intake & Output 11/07/16 11/08/16 11/08/16 18:59 06:59 18:59 Intake Total 1000 Balance 1000 Intake: Oral 1000 Other: # Voids 4 # Bowel Movements 1 Active Medications: Current Medications Acetaminophen (Tylenol) 650 mg PO Q4HR PRN PRN Reason: Mild Pain / Temp above 100 Stop: 01/03/17 20:33 Last Admin: 11/06/16 03:55 Dose: 650 mg Al Hydrox/Mg Hydrox/Simethicone (Maalox) 30 ml PO Q4HR PRN PRN Reason: GI DISTRESS Stop: 01/03/17 20:33 Albuterol Sulfate (Albuterol 2.5mg/3ml Neb Ud) 2.5 mg HHN Q4H PRN PRN Reason: sob Albuterol Sulfate (Albuterol 2.5mg/3ml Neb Ud) 2.5 mg HHN Q6HRT [facility] Stop: 01/04/17 09:59 Last Admin: 11/08/16 07:02 Dose: Not Given Amlodipine Besylate (Norvasc) 5 mg PO DAILY [facility] Stop: 01/04/17 08:59 Last Admin: 11/08/16 08:00 Dose: Not Given Aspirin (Ecotrin) 81 mg PO DAILY [facility] Stop: 01/04/17 08:59 Last Admin: 11/08/16 08:10 Dose: 81 mg Atorvastatin Calcium (Lipitor) 20 mg PO DAILY [facility] Stop: 01/04/17 09:59 Last Admin: 11/08/16 08:10 Dose: 20 mg Benazepril HCl (Lotensin) 20 mg PO DAILY [facility] Stop: 01/04/17 08:59 Last Admin: 11/08/16 08:00 Dose: Not Given Budesonide (Pulmicort) 0.5 mg HHN BIDRT [facility] Stop: 01/04/17 10:59 Last Admin: 11/08/16 07:01 Dose: Not Given Divalproex Sodium (Depakote Dr) 500 mg PO BID JOHN PRN Reason: Protocol Stop: 01/04/17 08:59 Last Admin: 11/08/16 08:10 Dose: 500 mg Docusate Sodium (Colace) 100 mg PO BID PRN PRN Reason: Constipation Finasteride (Proscar) 5 mg PO DAILY JOHN PRN Reason: Protocol Stop: 01/04/17 08:59 Last Admin: 11/08/16 08:11 Dose: 5 mg Ibuprofen (Motrin) 600 mg PO BID [facility] Stop: 01/05/17 08:59 Last Admin: 11/08/16 08:10 Dose: 600 mg Ipratropium [place] (Atrovent Neb 0.5mg/2.5ml) 0.5 mg HHN Q6HRT [facility] Stop: 01/04/17 09:59 Loperamide HCl (Imodium) 2 mg PO PRN PRN PRN Reason: Diarrhea Stop: 01/03/17 21:57 Lorazepam (Ativan) 0.5 mg PO Q4HR PRN; Protocol PRN Reason: Anxiety Stop: 12/04/16 20:33 Last Admin: 11/08/16 08:10 Dose: 0.5 mg Magnesium Hydroxide (Milk Of Magnesia) 30 ml PO HS PRN PRN Reason: Constipation Multivitamins/Vitamin C (Theragran) 1 tab PO DAILY [facility] Stop: 01/04/17 08:59 Last Admin: 11/08/16 08:11 Dose: 1 tab Risperidone (Risperdal) 0.25 mg PO BID JOHN PRN Reason: Protocol Stop: 01/07/17 08:59 Last Admin: 11/08/16 08:10 Dose: 0.25 mg Tamsulosin HCl (Flomax) 0.4 mg PO DAILY [facility] Stop: 01/04/17 08:59 Last Admin: 11/08/16 08:11 Dose: 0.4 mg Zolpidem Tartrate (Ambien) 5 mg PO HSMR1 PRN PRN Reason: Insomnia Stop: 01/03/17 20:33 Last Admin: 11/06/16 21:12 Dose: 5 mg General: alert HEENT: NC/AT, PERRLA Lungs: CTAB Cardiovascular: RRR, Normal S1, Normal S2, without murmur Abdomen: soft, non-tender, non-distended, positive bowel sound Extremities: clear Neurological: no change Internal Medicine Assmt/Plan - Assessment Assessment: HTN hx cva/tia schizophrenia hyponatremia - Plan Plan: fall precautions continue current tx Nutritional Asmnt/Malnutr-PDOC - Dietary Evaluation Malnutrition Findings (Please click <Entered> for more info): Nutritional Asmnt/Malnutrition Start: 11/06/16 17: 19 Text: Status: Complete Freq: Document 11/06/16 17:19 GSUN (Rec: 11/06/16 17:25 [email or web address] [email or web address]) Nutritional Asmnt/Malnutrition Patient General Information Nutritional Screening Moderate Risk Screening Diagnosis Unspecified psychosis, 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 Pt ambulates in wheelchair. Pt is talkative, however difficult to understand, unclear speech vs. dx mild to moderate mental retardation. 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 No significant wasting noted. Avg PO intake 100% of meals since adm, meeting nutritional needs. Current Diet Order/ Nutrition Support Low sodium Pertinent Medications Lipitor, Colace, MOM, Theragran Pertinent Labs 11/04: glucose 122H Nutritional Hx/Data Height 6 in Height (Calculated Centimeters) 15.2 Current Weight (lbs) 160 lb Weight (Calculated Kilograms) 72.6 Weight (Calculated Grams) 24921.8 [place] Body Weight 178 Weight Status Approriate GI Symptoms Food Allergies No Skin Integrity/Comment: Earnest 20. Skin intact. Current %PO Good (75-100%) Estimated Nutritional Goals BEE in Kcals: Using Current wt Calories/Kcals/Kg CBW 160lb/72.7kg Kcals Calculated 1818-2181kcal (25-30kcal/kg) Protein: Using Current wt Protein Calculated 73g (1g/kg) Fluid: ml 1818-2181ml (1ml/kcal) Nutritional Problem 1. Problem Problem No nutritional problem at this time. Intervention/Recommendation Comments 1. Continue with current diet order. Avg PO intake is adequate. Expected Outcomes/Goals Expected Outcomes/Goals 1. PO intake continue to meet at least 75% of estimated nutritional needs.
[2016-11-08] MEDS ORDERED: Albuterol Nebulizer 2.5mg/3mL HHN PRN (11:31)
[2016-11-08] MEDS ORDERED: Budesonide 0.5 Mg/2 mL Ud HHN PRN (11:32)
--- NOTE | 2016-11-08 12:17 | Progress Notes ---
DATE: 11/08/2016 SUBJECTIVE: The patient seen, chart reviewed, discussed with staff. The patient is currently in the hospital coming from a custodial, agitated, aggressive, hitting, urinating on the floor, making inappropriate sexual comments on [id number], confused, urinating on himself, disorganized, aggressive, demanding, focused on smoking, walking around naked at times. The patient remains highly impulsive, unpredictable and nonsensical. ASSESSMENT: The patient remains symptomatic, aggressive, not safe for a lower level of care. MEDICATIONS: Reviewed. He is currently on Depakote. ALLERGIES: No known drug allergies. If there are no noted contraindications, we will consider very low dose of Risperdal to initiate. The patient remains symptomatic, not safe for a lower level of care. JOB# [id number]
[2016-11-08] MEDS: Ipratropium Neb 0.5 mg/2.5 mL UD HHN SCH ×2 (20:30→20:31)
[2016-11-09] MEDS: Ipratropium Neb 0.5 mg/2.5 mL UD HHN SCH ×4 (00:55→20:10)
[2016-11-09] MEDS: Atorvastatin Calcium 10 MG TAB PO SCH (09:50)
[2016-11-09] MEDS: Multivitamin Tab PO SCH (09:52)
--- NOTE | 2016-11-09 12:57 | Progress Notes ---
DATE: 11/09/2016 SUBJECTIVE: The patient seen, chart reviewed, discussed with staff. The patient in the isolation room, agitated, aggressive, talking nonsensically, loud, intrusive, yelling, screaming. The patient has been compliant, overt side effects, but he remains safety risk, aggressive, agitated, poor impulse control. ASSESSMENT: The patient is confused, agitated, aggressive, intrusive in the isolation room, talking nonsensically and psychotic. PLAN: We will continue to monitor, I do not have how much history about his medications, but I will make adjustments today. We will continue to titrate Risperdal. JOB# [id number]
--- NOTE | 2016-11-09 13:22 | Internal Medicine Prog Note ---
Internal Medicine Subjective - Subjective Service Date: 11/09/16 Patient is:: awake Per staff patient has:: refusing care, refusing labs Internal Medicine Objective - Results Result Diagrams: 11/04/16 17:11/04/16 17: Recent Labs: Laboratory Last Values WBC 6.3 Th/cmm (4.8-10.8) 11/04/16 17: RBC 3.95 Mil/cmm (3.80-5.80) 11/04/16 17: Hgb 11.0 gm/dL (12.6-17.4) L 11/04/16 17: Hct 32.9 % (39.0-49.0) L 11/04/16: MCV 83.4 fl (80-99) 11/04/16 17: MCH 27.8 pg (27.0-31.0) 11/04/16: MCHC Differential 33.4 pg (28.0-36.0) 11/04/16: RDW 13.7 % (11.5-20.0) 11/04/16 17: Plt Count 304 Th/cmm (150-400) 11/04/16 17: MPV 6.8 fl 11/04/16 17: Neutrophils % 71.3 % (40.0-80.0) 11/04/16 17: Lymphocytes % 19.8 % (20.0-50.0) L 11/04/16: Monocytes % 7.3 % (2.0-10.0) 11/04/16: Eosinophils % 1.4 % (0.0-5.0) 11/04/16 17: Basophils % 0.2 % (0.0-2.0) 11/04/16 17: Sodium 132 mEq/L (136-145) L 11/04/16 17: Potassium 3.8 mEq/L (3.5-5.1) 11/04/16 17: Chloride 97 mEq/L (98-107) L 11/04/16 17: Carbon Dioxide 26.7 mEq/L (21.0-31.0) 11/04/16: Anion Gap 12.1 (7.0-16.0) 11/04/16 17: BUN 15 mg/dL (7-25) 11/04/16 17: Creatinine 0.7 mg/dL (0.7-1.3) 11/04/16 17: Est GFR ( Amer) TNP 11/04/16 17: Est GFR (Non-Af Amer) TNP 11/04/16: BUN/Creatinine Ratio 21.4 11/04/16: Glucose 122 mg/dL (70-105) H 11/04/16 17: Whole Bld Lactic Acid 2.70 mmol/L (0.60-1.99) H* 11/04/16: Calcium 9.9 mg/dL (8.6-10.3) 11/04/16: Total Bilirubin 0.3 mg/dL (0.3-1.0) 11/04/16: AST 18 U/L (13-39) 11/04/16: ALT 14 U/L (7-52) 11/04/16: Alkaline Phosphatase 58 U/L (34-104) 11/04/16: Troponin I 0.01 ng/mL (0.01-0.05) 11/04/16: Total Protein 7.5 gm/dL (6.0-8.3) 11/04/16: Albumin 3.9 gm/dL (4.2-5.5) L 11/04/16: Globulin 3.6 gm/dL 11/04/16: Albumin/Globulin Ratio 1.1 (1.0-1.8) 11/04/16: Triglycerides 53 mg/dL (<150) 11/04/16 17: Cholesterol 131 mg/dL (<200) 11/04/16: LDL Cholesterol Direct 66 mg/dL (75-193) L 11/04/16: HDL Cholesterol 50 mg/dL (23-92) 11/04/16: TSH 1.69 uIU/ml (0.34-5.60) 11/04/16: Urine Source RANDOM 11/04/16 20:00 Urine Color YELLOW 11/04/16 20:00 Urine Clarity CLEAR (CLEAR) 11/04/16 20:00 Urine pH 6.5 11/04/16 20:00 Ur Specific [place] 1.010 (1.005-1.030) 11/04/16 20:00 Urine Protein NEGATIVE mg/dL (NEGATIVE) 11/04/16 20:00 Urine Glucose (UA) NEGATIVE mg/dL (NEGATIVE) 11/04/16 20:00 Urine Ketones NEGATIVE mg/dL (NEGATIVE) 11/04/16 20:00 Urine Blood SMALL (NEGATIVE) H 11/04/16 20:00 Urine Nitrate NEGATIVE (NEGATIVE) 11/04/16 20:00 Urine Bilirubin NEGATIVE (NEGATIVE) 11/04/16 20:00 Urine Urobilinogen 0.2 E.U./dL (0.2 - 1.0) 11/04/16 20:00 Ur Leukocyte Esterase TRACE (NEGATIVE) H 11/04/16 20:00 Urine RBC 2-5 /hpf (0-5) H 11/04/16 20:00 Urine WBC 2-5 /hpf (0-5) H 11/04/16 20:00 Ur Epithelial Cells NONE SEEN /lpf (FEW) 11/04/16 20:00 Urine Bacteria NONE SEEN /hpf (NONE SEEN) 11/04/16 20:00 Salicylates < 25.0 mg/L (30.0-100.0) L 11/04/16 17:29 Urine Opiates Screen NEGATIVE (NEGATIVE) 11/04/16 20:00 Urine Methadone Screen NEGATIVE (NEGATIVE) 11/04/16 20:00 Acetaminophen < 10.0 ug/mL (10.0-30.0) L 11/04/16 17:29 Ur Barbiturates Screen NEGATIVE (NEGATIVE) 11/04/16 20:00 Valproic Acid 46.1 ug/mL (50.0-100.0) L 11/06/16 10:55 Ur Tricyclics Screen NEGATIVE (NEGATIVE) 11/04/16 20:00 Ur Phencyclidine Scrn NEGATIVE (NEGATIVE) 11/04/16 20:00 Amphetamines Screen NEGATIVE (NEGATIVE) 11/04/16 20:00 U Methamphetamines Scrn NEGATIVE (NEGATIVE) 11/04/16 20:00 U Benzodiazepines Scrn NEGATIVE (NEGATIVE) 11/04/16 20:00 U Cocaine Metab Screen NEGATIVE (NEGATIVE) 11/04/16 20:00 U Cannabinoids Screen NEGATIVE (NEGATIVE) 11/04/16 20:00 Ethyl Alcohol < 10 mg/dL (0-10) 11/04/16 17:29 RPR NONREACTIVE (NONREACTIVE) 11/04/16 17:29 - Physical Exam Vitals and I&O: Vital Signs Temp 97.5 F 11/09/16 06:25 Pulse 81 11/09/16 09:51 Resp 16 11/09/16 07:18 BP 129/74 11/09/16 09:51 Pulse Ox 98 11/09/16 07:18 Intake & Output 11/08/16 11/09/16 11/09/16 18:59 06:59 18:59 Intake Total 120 Balance 120 Intake: Oral 120 Other: # Voids 3 Active Medications: Current Medications Acetaminophen (Tylenol) 650 mg PO Q4HR PRN PRN Reason: Mild Pain / Temp above 100 Stop: 01/03/17 20:33 Last Admin: 11/06/16 03:55 Dose: 650 mg Al Hydrox/Mg Hydrox/Simethicone (Maalox) 30 ml PO Q4HR PRN PRN Reason: GI DISTRESS Stop: 01/03/17 20:33 Albuterol Sulfate (Albuterol 2.5mg/3ml Neb Ud) 2.5 mg HHN Q4H PRN PRN Reason: sob Albuterol Sulfate (Albuterol 2.5mg/3ml Neb Ud) 2.5 mg HHN Q6HRT PRN PRN Reason: sob Stop: 01/04/17 09:59 Amlodipine Besylate (Norvasc) 5 mg PO DAILY [facility] Stop: 01/04/17 08:59 Last Admin: 11/09/16 09:49 Dose: 5 mg Aspirin (Ecotrin) 81 mg PO DAILY [facility] Stop: 01/04/17 08:59 Last Admin: 11/09/16 09:50 Dose: 81 mg Atorvastatin Calcium (Lipitor) 20 mg PO DAILY [facility] Stop: 01/04/17 09:59 Last Admin: 11/09/16 09:50 Dose: 20 mg Benazepril HCl (Lotensin) 20 mg PO DAILY [facility] Stop: 01/04/17 08:59 Last Admin: 11/09/16 09:51 Dose: 20 mg Budesonide (Pulmicort) 0.5 mg HHN BIDRT PRN PRN Reason: sob Stop: 01/04/17 10:59 Divalproex Sodium (Depakote Dr) 500 mg PO BID JOHN PRN Reason: Protocol Stop: 01/04/17 08:59 Last Admin: 11/09/16 09:51 Dose: 500 mg Docusate Sodium (Colace) 100 mg PO BID PRN PRN Reason: Constipation Finasteride (Proscar) 5 mg PO DAILY JOHN PRN Reason: Protocol Stop: 01/04/17 08:59 Last Admin: 11/09/16 09:51 Dose: 5 mg Ibuprofen (Motrin) 600 mg PO BID [facility] Stop: 01/05/17 08:59 Last Admin: 11/09/16 09:51 Dose: 600 mg Ipratropium [place] (Atrovent Neb 0.5mg/2.5ml) 0.5 mg HHN Q6HRT [facility] Stop: 01/04/17 09:59 Last Admin: 11/09/16 07:18 Dose: Not Given Loperamide HCl (Imodium) 2 mg PO PRN PRN PRN Reason: Diarrhea Stop: 01/03/17 21:57 Lorazepam (Ativan) 0.5 mg PO Q4HR PRN; Protocol PRN Reason: Anxiety Stop: 12/04/16 20:33 Last Admin: 11/09/16 09:52 Dose: 0.5 mg Magnesium Hydroxide (Milk Of Magnesia) 30 ml PO HS PRN PRN Reason: Constipation Multivitamins/Vitamin C (Theragran) 1 tab PO DAILY [facility] Stop: 01/04/17 08:59 Last Admin: 11/09/16 09:52 Dose: 1 tab Risperidone (Risperdal) 0.5 mg PO BID JOHN PRN Reason: Protocol Stop: 01/08/17 07:13 Last Admin: 11/09/16 09:52 Dose: 0.5 mg Tamsulosin HCl (Flomax) 0.4 mg PO DAILY [facility] Stop: 01/04/17 08:59 Last Admin: 11/09/16 09:52 Dose: 0.4 mg Zolpidem Tartrate (Ambien) 5 mg PO HSMR1 PRN PRN Reason: Insomnia Stop: 01/03/17 20:33 Last Admin: 11/06/16 21:12 Dose: 5 mg General: alert HEENT: NC/AT, PERRLA Lungs: CTAB Cardiovascular: RRR, Normal S1, Normal S2, without murmur Abdomen: soft, non-tender, non-distended, positive bowel sound Extremities: clear Neurological: no change Internal Medicine Assmt/Plan - Assessment Assessment: HTN hx cva/tia schizophrenia hyponatremia - Plan Plan: fall precautions continue current tx Nutritional Asmnt/Malnutr-PDOC - Dietary Evaluation Malnutrition Findings (Please click <Entered> for more info): Nutritional Asmnt/Malnutrition Start: 11/06/16 17: 19 Text: Status: Complete Freq: Document 11/06/16 17:19 GSUN (Rec: 11/06/16 17:25 [email or web address] [email or web address]) Nutritional Asmnt/Malnutrition Patient General Information Nutritional Screening Moderate Risk Screening Diagnosis Unspecified psychosis, 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 Pt ambulates in wheelchair. Pt is talkative, however difficult to understand, unclear speech vs. dx mild to moderate mental retardation. 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 No significant wasting noted. Avg PO intake 100% of meals since adm, meeting nutritional needs. Current Diet Order/ Nutrition Support Low sodium Pertinent Medications Lipitor, Colace, MOM, Theragran Pertinent Labs 11/04: glucose 122H Nutritional Hx/Data Height 6 in Height (Calculated Centimeters) 15.2 Current Weight (lbs) 160 lb Weight (Calculated Kilograms) 72.6 Weight (Calculated Grams) 04787.8 [place] Body Weight 178 Weight Status Approriate GI Symptoms Food Allergies No Skin Integrity/Comment: Earnest 20. Skin intact. Current %PO Good (75-100%) Estimated Nutritional Goals BEE in Kcals: Using Current wt Calories/Kcals/Kg CBW 160lb/72.7kg Kcals Calculated 1818-2181kcal (25-30kcal/kg) Protein: Using Current wt Protein Calculated 73g (1g/kg) Fluid: ml 1818-2181ml (1ml/kcal) Nutritional Problem 1. Problem Problem No nutritional problem at this time. Intervention/Recommendation Comments 1. Continue with current diet order. Avg PO intake is adequate. Expected Outcomes/Goals Expected Outcomes/Goals 1. PO intake continue to meet at least 75% of estimated nutritional needs.
[2016-11-10] MEDS: Ipratropium Neb 0.5 mg/2.5 mL UD HHN SCH ×2 (01:47→07:30)
[2016-11-10] MEDS: Multivitamin Tab PO SCH (09:18)
[2016-11-10] MEDS: Atorvastatin Calcium 10 MG TAB PO SCH (09:20)
--- NOTE | 2016-11-10 11:04 | Progress Notes ---
DATE: 11/10/2016 SUBJECTIVE: Chart reviewed and the patient interviewed. Also discussed the patient's condition with the staff and reviewed records and labs. The patient remains agitated and is still anxious. The patient also is still in irritable mood. The patient also is still having mood swings and is still having problems with her energy and complaining of feeling tired, but at the same time, he is aggressive and he still needs lots of redirections. Otherwise, the patient is compliant with medications with no side effects of medications. ASSESSMENT: The patient is still agitated and psychotic. TREATMENT PLAN: We will continue monitoring his behavior and his condition closely. Dr. Rodriguez increased Risperdal to 0.5 mg twice a day yesterday. We will continue same dose and we will continue to follow up. JOB# [id number]
--- NOTE | 2016-11-10 13:11 | Internal Medicine Prog Note ---
Internal Medicine Subjective - Subjective Service Date: 11/10/16 Patient is:: awake Per staff patient has:: refusing care, refusing labs Internal Medicine Objective - Results Result Diagrams: 11/04/16 17:11/04/16 17: Recent Labs: Laboratory Last Values WBC 6.3 Th/cmm (4.8-10.8) 11/04/16 17: RBC 3.95 Mil/cmm (3.80-5.80) 11/04/16 17: Hgb 11.0 gm/dL (12.6-17.4) L 11/04/16 17: Hct 32.9 % (39.0-49.0) L 11/04/16: MCV 83.4 fl (80-99) 11/04/16 17: MCH 27.8 pg (27.0-31.0) 11/04/16: MCHC Differential 33.4 pg (28.0-36.0) 11/04/16: RDW 13.7 % (11.5-20.0) 11/04/16: Plt Count 304 Th/cmm (150-400) 11/04/16 17: MPV 6.8 fl 11/04/16 17: Neutrophils % 71.3 % (40.0-80.0) 11/04/16: Lymphocytes % 19.8 % (20.0-50.0) L 11/04/16: Monocytes % 7.3 % (2.0-10.0) 11/04/16: Eosinophils % 1.4 % (0.0-5.0) 11/04/16 17: Basophils % 0.2 % (0.0-2.0) 11/04/16 17: Sodium 132 mEq/L (136-145) L 11/04/16 17: Potassium 3.8 mEq/L (3.5-5.1) 11/04/16 17: Chloride 97 mEq/L (98-107) L 11/04/16: Carbon Dioxide 26.7 mEq/L (21.0-31.0) 11/04/16: Anion Gap 12.1 (7.0-16.0) 11/04/16 17: BUN 15 mg/dL (7-25) 11/04/16 17: Creatinine 0.7 mg/dL (0.7-1.3) 11/04/16 17: Est GFR ( Amer) TNP 11/04/16 17: Est GFR (Non-Af Amer) TNP 11/04/16: BUN/Creatinine Ratio 21.4 11/04/16: Glucose 122 mg/dL (70-105) H 11/04/16 17: Whole Bld Lactic Acid 2.70 mmol/L (0.60-1.99) H* 11/04/16: Calcium 9.9 mg/dL (8.6-10.3) 11/04/16: Total Bilirubin 0.3 mg/dL (0.3-1.0) 11/04/16: AST 18 U/L (13-39) 11/04/16: ALT 14 U/L (7-52) 11/04/16: Alkaline Phosphatase 58 U/L (34-104) 11/04/16: Troponin I 0.01 ng/mL (0.01-0.05) 11/04/16: Total Protein 7.5 gm/dL (6.0-8.3) 11/04/16: Albumin 3.9 gm/dL (4.2-5.5) L 11/04/16: Globulin 3.6 gm/dL 11/04/16: Albumin/Globulin Ratio 1.1 (1.0-1.8) 11/04/16: Triglycerides 53 mg/dL (<150) 11/04/16 17: Cholesterol 131 mg/dL (<200) 11/04/16: LDL Cholesterol Direct 66 mg/dL (75-193) L 11/04/16: HDL Cholesterol 50 mg/dL (23-92) 11/04/16: TSH 1.69 uIU/ml (0.34-5.60) 11/04/16: Urine Source RANDOM 11/04/16 20:00 Urine Color YELLOW 11/04/16 20:00 Urine Clarity CLEAR (CLEAR) 11/04/16 20:00 Urine pH 6.5 11/04/16 20:00 Ur Specific [place] 1.010 (1.005-1.030) 11/04/16 20:00 Urine Protein NEGATIVE mg/dL (NEGATIVE) 11/04/16 20:00 Urine Glucose (UA) NEGATIVE mg/dL (NEGATIVE) 11/04/16 20:00 Urine Ketones NEGATIVE mg/dL (NEGATIVE) 11/04/16 20:00 Urine Blood SMALL (NEGATIVE) H 11/04/16 20:00 Urine Nitrate NEGATIVE (NEGATIVE) 11/04/16 20:00 Urine Bilirubin NEGATIVE (NEGATIVE) 11/04/16 20:00 Urine Urobilinogen 0.2 E.U./dL (0.2 - 1.0) 11/04/16 20:00 Ur Leukocyte Esterase TRACE (NEGATIVE) H 11/04/16 20:00 Urine RBC 2-5 /hpf (0-5) H 11/04/16 20:00 Urine WBC 2-5 /hpf (0-5) H 11/04/16 20:00 Ur Epithelial Cells NONE SEEN /lpf (FEW) 11/04/16 20:00 Urine Bacteria NONE SEEN /hpf (NONE SEEN) 11/04/16 20:00 Salicylates < 25.0 mg/L (30.0-100.0) L 11/04/16 17:29 Urine Opiates Screen NEGATIVE (NEGATIVE) 11/04/16 20:00 Urine Methadone Screen NEGATIVE (NEGATIVE) 11/04/16 20:00 Acetaminophen < 10.0 ug/mL (10.0-30.0) L 11/04/16 17:29 Ur Barbiturates Screen NEGATIVE (NEGATIVE) 11/04/16 20:00 Valproic Acid 46.1 ug/mL (50.0-100.0) L 11/06/16 10:55 Ur Tricyclics Screen NEGATIVE (NEGATIVE) 11/04/16 20:00 Ur Phencyclidine Scrn NEGATIVE (NEGATIVE) 11/04/16 20:00 Amphetamines Screen NEGATIVE (NEGATIVE) 11/04/16 20:00 U Methamphetamines Scrn NEGATIVE (NEGATIVE) 11/04/16 20:00 U Benzodiazepines Scrn NEGATIVE (NEGATIVE) 11/04/16 20:00 U Cocaine Metab Screen NEGATIVE (NEGATIVE) 11/04/16 20:00 U Cannabinoids Screen NEGATIVE (NEGATIVE) 11/04/16 20:00 Ethyl Alcohol < 10 mg/dL (0-10) 11/04/16 17:29 RPR NONREACTIVE (NONREACTIVE) 11/04/16 17:29 - Physical Exam Vitals and I&O: Vital Signs Temp 98 F 11/10/16 06:51 Pulse 99 11/10/16 09:19 Resp 20 11/10/16 07:30 BP 133/70 11/10/16 09:19 Pulse Ox 97 11/10/16 07:30 Intake & Output 11/09/16 11/10/16 11/10/16 18:59 06:59 18:59 Intake Total 120 Balance 120 Intake: Oral 120 Other: # Voids 3 Active Medications: Current Medications Acetaminophen (Tylenol) 650 mg PO Q4HR PRN PRN Reason: Mild Pain / Temp above 100 Stop: 01/03/17 20:33 Last Admin: 11/06/16 03:55 Dose: 650 mg Al Hydrox/Mg Hydrox/Simethicone (Maalox) 30 ml PO Q4HR PRN PRN Reason: GI DISTRESS Stop: 01/03/17 20:33 Albuterol Sulfate (Albuterol 2.5mg/3ml Neb Ud) 2.5 mg HHN Q4H PRN PRN Reason: sob Albuterol Sulfate (Albuterol 2.5mg/3ml Neb Ud) 2.5 mg HHN Q6HRT PRN PRN Reason: sob Stop: 01/04/17 09:59 Amlodipine Besylate (Norvasc) 5 mg PO DAILY JOHN Stop: 01/04/17 08:59 Last Admin: 11/10/16 09:19 Dose: 5 mg Aspirin (Ecotrin) 81 mg PO DAILY JOHN Stop: 01/04/17 08:59 Last Admin: 11/10/16 09:19 Dose: 81 mg Atorvastatin Calcium (Lipitor) 20 mg PO DAILY JOHN Stop: 01/04/17 09:59 Last Admin: 11/10/16 09:20 Dose: 20 mg Benazepril HCl (Lotensin) 20 mg PO DAILY JOHN Stop: 01/04/17 08:59 Last Admin: 11/10/16 09:18 Dose: 20 mg Budesonide (Pulmicort) 0.5 mg HHN BIDRT PRN PRN Reason: sob Stop: 01/04/17 10:59 Divalproex Sodium (Depakote Dr) 500 mg PO BID JOHN PRN Reason: Protocol Stop: 01/04/17 08:59 Last Admin: 11/10/16 09:19 Dose: 500 mg Docusate Sodium (Colace) 100 mg PO BID PRN PRN Reason: Constipation Finasteride (Proscar) 5 mg PO DAILY JOHN PRN Reason: Protocol Stop: 01/04/17 08:59 Last Admin: 11/10/16 09:19 Dose: 5 mg Ibuprofen (Motrin) 600 mg PO BID JOHN Stop: 01/05/17 08:59 Last Admin: 11/10/16 09:19 Dose: 600 mg Ipratropium [place] (Atrovent Neb 0.5mg/2.5ml) 0.5 mg HHN Q6HRT JOHN Stop: 01/04/17 09:59 Last Admin: 11/10/16 07:30 Dose: 0.5 mg Loperamide HCl (Imodium) 2 mg PO PRN PRN PRN Reason: Diarrhea Stop: 01/03/17 21:57 Lorazepam (Ativan) 0.5 mg PO Q4HR PRN; Protocol PRN Reason: Anxiety Stop: 12/04/16 20:33 Last Admin: 11/10/16 09:19 Dose: 0.5 mg Magnesium Hydroxide (Milk Of Magnesia) 30 ml PO HS PRN PRN Reason: Constipation Multivitamins/Vitamin C (Theragran) 1 tab PO DAILY JOHN Stop: 01/04/17 08:59 Last Admin: 11/10/16 09:18 Dose: 1 tab Risperidone (Risperdal) 0.5 mg PO BID JOHN PRN Reason: Protocol Stop: 01/08/17 07:13 Last Admin: 11/10/16 09:20 Dose: 0.5 mg Tamsulosin HCl (Flomax) 0.4 mg PO DAILY JOHN Stop: 01/04/17 08:59 Last Admin: 11/10/16 09:20 Dose: 0.4 mg Zolpidem Tartrate (Ambien) 5 mg PO HSMR1 PRN PRN Reason: Insomnia Stop: 01/03/17 20:33 Last Admin: 11/09/16 20:37 Dose: 5 mg General: alert HEENT: NC/AT, PERRLA Lungs: CTAB Cardiovascular: RRR, Normal S1, Normal S2, without murmur Abdomen: soft, non-tender, non-distended, positive bowel sound Extremities: clear Neurological: no change Internal Medicine Assmt/Plan - Assessment Assessment: HTN hx cva/tia schizophrenia hyponatremia - Plan Plan: fall precautions continue current tx Nutritional Asmnt/Malnutr-PDOC - Dietary Evaluation Malnutrition Findings (Please click <Entered> for more info): Nutritional Asmnt/Malnutrition Start: 11/06/16 17: 19 Text: Status: Complete Freq: Document 11/06/16 17:19 GSUN (Rec: 11/06/16 17:25 GSUN [email or web address]) Nutritional Asmnt/Malnutrition Patient General Information Nutritional Screening Moderate Risk Screening Diagnosis Unspecified psychosis, 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 Pt ambulates in wheelchair. Pt is talkative, however difficult to understand, unclear speech vs. dx mild to moderate mental retardation. 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 No significant wasting noted. Avg PO intake 100% of meals since adm, meeting nutritional needs. Current Diet Order/ Nutrition Support Low sodium Pertinent Medications Lipitor, Colace, MOM, Theragran Pertinent Labs 11/04: glucose 122H Nutritional Hx/Data Height 6 in Height (Calculated Centimeters) 15.2 Current Weight (lbs) 160 lb Weight (Calculated Kilograms) 72.6 Weight (Calculated Grams) 93771.8 [place] Body Weight 178 Weight Status Approriate GI Symptoms Food Allergies No Skin Integrity/Comment: Earnest 20. Skin intact. Current %PO Good (75-100%) Estimated Nutritional Goals BEE in Kcals: Using Current wt Calories/Kcals/Kg CBW 160lb/72.7kg Kcals Calculated 1818-2181kcal (25-30kcal/kg) Protein: Using Current wt Protein Calculated 73g (1g/kg) Fluid: ml 1818-2181ml (1ml/kcal) Nutritional Problem 1. Problem Problem No nutritional problem at this time. Intervention/Recommendation Comments 1. Continue with current diet order. Avg PO intake is adequate. Expected Outcomes/Goals Expected Outcomes/Goals 1. PO intake continue to meet at least 75% of estimated nutritional needs.
[2016-11-10] MEDS ORDERED: Ipratropium Neb 0.5 mg/2.5 mL UD HHN PRN (17:30)
[2016-11-11] MEDS: Multivitamin Tab PO SCH (08:46)
[2016-11-11] MEDS: Atorvastatin Calcium 10 MG TAB PO SCH (08:46)
--- NOTE | 2016-11-11 12:47 | Internal Medicine Prog Note ---
Internal Medicine Subjective - Subjective Service Date: 11/11/16 Patient is:: awake Per staff patient has:: refusing care, refusing labs Internal Medicine Objective - Results Result Diagrams: 11/04/16 17:11/04/16 17: Recent Labs: Laboratory Last Values WBC 6.3 Th/cmm (4.8-10.8) 11/04/16 17: RBC 3.95 Mil/cmm (3.80-5.80) 11/04/16 17: Hgb 11.0 gm/dL (12.6-17.4) L 11/04/16 17: Hct 32.9 % (39.0-49.0) L 11/04/16: MCV 83.4 fl (80-99) 11/04/16: MCH 27.8 pg (27.0-31.0) 11/04/16: MCHC Differential 33.4 pg (28.0-36.0) 11/04/16: RDW 13.7 % (11.5-20.0) 11/04/16: Plt Count 304 Th/cmm (150-400) 11/04/16 17: MPV 6.8 fl 11/04/16 17: Neutrophils % 71.3 % (40.0-80.0) 11/04/16: Lymphocytes % 19.8 % (20.0-50.0) L 11/04/16: Monocytes % 7.3 % (2.0-10.0) 11/04/16: Eosinophils % 1.4 % (0.0-5.0) 11/04/16 17: Basophils % 0.2 % (0.0-2.0) 11/04/16 17: Sodium 132 mEq/L (136-145) L 11/04/16 17: Potassium 3.8 mEq/L (3.5-5.1) 11/04/16 17: Chloride 97 mEq/L (98-107) L 11/04/16: Carbon Dioxide 26.7 mEq/L (21.0-31.0) 11/04/16: Anion Gap 12.1 (7.0-16.0) 11/04/16 17: BUN 15 mg/dL (7-25) 11/04/16 17: Creatinine 0.7 mg/dL (0.7-1.3) 11/04/16 17: Est GFR ( Amer) TNP 11/04/16 17: Est GFR (Non-Af Amer) TNP 11/04/16: BUN/Creatinine Ratio 21.4 11/04/16: Glucose 122 mg/dL (70-105) H 11/04/16 17: Whole Bld Lactic Acid 2.70 mmol/L (0.60-1.99) H* 11/04/16: Calcium 9.9 mg/dL (8.6-10.3) 11/04/16: Total Bilirubin 0.3 mg/dL (0.3-1.0) 11/04/16: AST 18 U/L (13-39) 11/04/16: ALT 14 U/L (7-52) 11/04/16: Alkaline Phosphatase 58 U/L (34-104) 11/04/16: Troponin I 0.01 ng/mL (0.01-0.05) 11/04/16: Total Protein 7.5 gm/dL (6.0-8.3) 11/04/16: Albumin 3.9 gm/dL (4.2-5.5) L 11/04/16: Globulin 3.6 gm/dL 11/04/16: Albumin/Globulin Ratio 1.1 (1.0-1.8) 11/04/16: Triglycerides 53 mg/dL (<150) 11/04/16 17: Cholesterol 131 mg/dL (<200) 11/04/16: LDL Cholesterol Direct 66 mg/dL (75-193) L 11/04/16: HDL Cholesterol 50 mg/dL (23-92) 11/04/16: TSH 1.69 uIU/ml (0.34-5.60) 11/04/16: Urine Source RANDOM 11/04/16 20:00 Urine Color YELLOW 11/04/16 20:00 Urine Clarity CLEAR (CLEAR) 11/04/16 20:00 Urine pH 6.5 11/04/16 20:00 Ur Specific [place] 1.010 (1.005-1.030) 11/04/16 20:00 Urine Protein NEGATIVE mg/dL (NEGATIVE) 11/04/16 20:00 Urine Glucose (UA) NEGATIVE mg/dL (NEGATIVE) 11/04/16 20:00 Urine Ketones NEGATIVE mg/dL (NEGATIVE) 11/04/16 20:00 Urine Blood SMALL (NEGATIVE) H 11/04/16 20:00 Urine Nitrate NEGATIVE (NEGATIVE) 11/04/16 20:00 Urine Bilirubin NEGATIVE (NEGATIVE) 11/04/16 20:00 Urine Urobilinogen 0.2 E.U./dL (0.2 - 1.0) 11/04/16 20:00 Ur Leukocyte Esterase TRACE (NEGATIVE) H 11/04/16 20:00 Urine RBC 2-5 /hpf (0-5) H 11/04/16 20:00 Urine WBC 2-5 /hpf (0-5) H 11/04/16 20:00 Ur Epithelial Cells NONE SEEN /lpf (FEW) 11/04/16 20:00 Urine Bacteria NONE SEEN /hpf (NONE SEEN) 11/04/16 20:00 Salicylates < 25.0 mg/L (30.0-100.0) L 11/04/16 17:29 Urine Opiates Screen NEGATIVE (NEGATIVE) 11/04/16 20:00 Urine Methadone Screen NEGATIVE (NEGATIVE) 11/04/16 20:00 Acetaminophen < 10.0 ug/mL (10.0-30.0) L 11/04/16 17:29 Ur Barbiturates Screen NEGATIVE (NEGATIVE) 11/04/16 20:00 Valproic Acid 46.1 ug/mL (50.0-100.0) L 11/06/16 10:55 Ur Tricyclics Screen NEGATIVE (NEGATIVE) 11/04/16 20:00 Ur Phencyclidine Scrn NEGATIVE (NEGATIVE) 11/04/16 20:00 Amphetamines Screen NEGATIVE (NEGATIVE) 11/04/16 20:00 U Methamphetamines Scrn NEGATIVE (NEGATIVE) 11/04/16 20:00 U Benzodiazepines Scrn NEGATIVE (NEGATIVE) 11/04/16 20:00 U Cocaine Metab Screen NEGATIVE (NEGATIVE) 11/04/16 20:00 U Cannabinoids Screen NEGATIVE (NEGATIVE) 11/04/16 20:00 Ethyl Alcohol < 10 mg/dL (0-10) 11/04/16 17:29 RPR NONREACTIVE (NONREACTIVE) 11/04/16 17:29 - Physical Exam Vitals and I&O: Vital Signs Temp 97.8 F 11/11/16 06:01 Pulse 92 11/11/16 08:48 Resp 18 11/11/16 10:11 BP 110/66 11/11/16 08:48 Pulse Ox 100 11/11/16 07:36 Intake & Output 11/10/16 11/11/16 11/11/16 18:59 06:59 18:59 Intake Total 800 120 Balance 800 120 Intake: Oral 800 120 Other: # Voids 3 2 # Bowel Movements 0 0 Active Medications: Current Medications Acetaminophen (Tylenol) 650 mg PO Q4HR PRN PRN Reason: Mild Pain / Temp above 100 Stop: 01/03/17 20:33 Last Admin: 11/06/16 03:55 Dose: 650 mg Al Hydrox/Mg Hydrox/Simethicone (Maalox) 30 ml PO Q4HR PRN PRN Reason: GI DISTRESS Stop: 01/03/17 20:33 Albuterol Sulfate (Albuterol 2.5mg/3ml Neb Ud) 2.5 mg HHN Q4H PRN PRN Reason: sob Albuterol Sulfate (Albuterol 2.5mg/3ml Neb Ud) 2.5 mg HHN Q6HRT PRN PRN Reason: sob Stop: 01/04/17 09:59 Amlodipine Besylate (Norvasc) 5 mg PO DAILY JOHN Stop: 01/04/17 08:59 Last Admin: 11/11/16 08:47 Dose: Not Given Aspirin (Ecotrin) 81 mg PO DAILY JOHN Stop: 01/04/17 08:59 Last Admin: 11/11/16 08:46 Dose: 81 mg Atorvastatin Calcium (Lipitor) 20 mg PO DAILY JOHN Stop: 01/04/17 09:59 Last Admin: 11/11/16 08:46 Dose: 20 mg Benazepril HCl (Lotensin) 20 mg PO DAILY JOHN Stop: 01/04/17 08:59 Last Admin: 11/11/16 08:48 Dose: Not Given Budesonide (Pulmicort) 0.5 mg HHN BIDRT PRN PRN Reason: sob Stop: 01/04/17 10:59 Divalproex Sodium (Depakote Dr) 500 mg PO BID JOHN PRN Reason: Protocol Stop: 01/04/17 08:59 Last Admin: 11/11/16 08:45 Dose: 500 mg Docusate Sodium (Colace) 100 mg PO BID PRN PRN Reason: Constipation Finasteride (Proscar) 5 mg PO DAILY JOHN PRN Reason: Protocol Stop: 01/04/17 08:59 Last Admin: 11/11/16 08:47 Dose: 5 mg Ibuprofen (Motrin) 600 mg PO BID JOHN Stop: 01/05/17 08:59 Last Admin: 11/11/16 08:47 Dose: 600 mg Ipratropium [place] (Atrovent Neb 0.5mg/2.5ml) 0.5 mg HHN Q6HRT PRN PRN Reason: sob Stop: 01/09/17 18:59 Loperamide HCl (Imodium) 2 mg PO PRN PRN PRN Reason: Diarrhea Stop: 01/03/17 21:57 Lorazepam (Ativan) 0.5 mg PO Q4HR PRN; Protocol PRN Reason: Anxiety Stop: 12/04/16 20:33 Last Admin: 11/10/16 16:57 Dose: 0.5 mg Magnesium Hydroxide (Milk Of Magnesia) 30 ml PO HS PRN PRN Reason: Constipation Multivitamins/Vitamin C (Theragran) 1 tab PO DAILY JOHN Stop: 01/04/17 08:59 Last Admin: 11/11/16 08:46 Dose: 1 tab Risperidone (Risperdal) 0.5 mg PO BID JOHN PRN Reason: Protocol Stop: 01/08/17 07:13 Last Admin: 11/11/16 08:46 Dose: 0.5 mg Tamsulosin HCl (Flomax) 0.4 mg PO DAILY JOHN Stop: 01/04/17 08:59 Last Admin: 11/11/16 08:45 Dose: 0.4 mg Zolpidem Tartrate (Ambien) 5 mg PO HSMR1 PRN PRN Reason: Insomnia Stop: 01/03/17 20:33 Last Admin: 11/09/16 20:37 Dose: 5 mg General: alert HEENT: NC/AT, PERRLA Lungs: CTAB Cardiovascular: RRR, Normal S1, Normal S2, without murmur Abdomen: soft, non-tender, non-distended, positive bowel sound Extremities: clear Neurological: no change Internal Medicine Assmt/Plan - Assessment Assessment: HTN hx cva/tia schizophrenia hyponatremia - Plan Plan: fall precautions continue current tx Nutritional Asmnt/Malnutr-PDOC - Dietary Evaluation Malnutrition Findings (Please click <Entered> for more info): Nutritional Asmnt/Malnutrition Start: 11/06/16 17: 19 Text: Status: Complete Freq: Document 11/06/16 17:19 GSUN (Rec: 11/06/16 17:25 [email or web address] [email or web address]) Nutritional Asmnt/Malnutrition Patient General Information Nutritional Screening Moderate Risk Screening Diagnosis Unspecified psychosis, 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 Pt ambulates in wheelchair. Pt is talkative, however difficult to understand, unclear speech vs. dx mild to moderate mental retardation. 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 No significant wasting noted. Avg PO intake 100% of meals since adm, meeting nutritional needs. Current Diet Order/ Nutrition Support Low sodium Pertinent Medications Lipitor, Colace, MOM, Theragran Pertinent Labs 11/04: glucose 122H Nutritional Hx/Data Height 6 in Height (Calculated Centimeters) 15.2 Current Weight (lbs) 160 lb Weight (Calculated Kilograms) 72.6 Weight (Calculated Grams) 94122.8 [place] Body Weight 178 Weight Status Approriate GI Symptoms Food Allergies No Skin Integrity/Comment: Earnest 20. Skin intact. Current %PO Good (75-100%) Estimated Nutritional Goals BEE in Kcals: Using Current wt Calories/Kcals/Kg CBW 160lb/72.7kg Kcals Calculated 1818-2181kcal (25-30kcal/kg) Protein: Using Current wt Protein Calculated 73g (1g/kg) Fluid: ml 1818-2181ml (1ml/kcal) Nutritional Problem 1. Problem Problem No nutritional problem at this time. Intervention/Recommendation Comments 1. Continue with current diet order. Avg PO intake is adequate. Expected Outcomes/Goals Expected Outcomes/Goals 1. PO intake continue to meet at least 75% of estimated nutritional needs.
--- NOTE | 2016-11-11 21:12 | Progress Notes ---
DATE: 11/11/2016 SUBJECTIVE: Chart reviewed and the patient interviewed. Also discussed the patient's condition with the staff and reviewed records and labs. The patient is still acting bizarre and he is still making bizarre noises, especially at night and continue with noises according to the staff for almost 2 hours. The patient also told the staff that he is cleaning his ____. He is suspicious and paranoid and argumentative. The patient also has angry outbursts. The patient also seems to be preoccupied and responding and needs lots of redirections. ASSESSMENT: The patient is still psychotic. TREATMENT PLAN: Risperdal increased to 2.5 mg twice a day. We will continue same dose. Continue to monitor his behavior and work on his agitation and his psychosis. JOB# [id number]
[2016-11-12] MEDS: Atorvastatin Calcium 10 MG TAB PO SCH (08:50)
[2016-11-12] MEDS: Multivitamin Tab PO SCH (08:51)
--- NOTE | 2016-11-12 14:17 | Internal Medicine Prog Note ---
Internal Medicine Subjective - Subjective Service Date: 11/12/16 Patient is:: awake Per staff patient has:: refusing care, refusing labs Internal Medicine Objective - Results Result Diagrams: 11/04/16 17:11/04/16 17: Recent Labs: Laboratory Last Values WBC 6.3 Th/cmm (4.8-10.8) 11/04/16 17: RBC 3.95 Mil/cmm (3.80-5.80) 11/04/16 17: Hgb 11.0 gm/dL (12.6-17.4) L 11/04/16 17: Hct 32.9 % (39.0-49.0) L 11/04/16: MCV 83.4 fl (80-99) 11/04/16: MCH 27.8 pg (27.0-31.0) 11/04/16: MCHC Differential 33.4 pg (28.0-36.0) 11/04/16: RDW 13.7 % (11.5-20.0) 11/04/16: Plt Count 304 Th/cmm (150-400) 11/04/16 17: MPV 6.8 fl 11/04/16 17: Neutrophils % 71.3 % (40.0-80.0) 11/04/16: Lymphocytes % 19.8 % (20.0-50.0) L 11/04/16: Monocytes % 7.3 % (2.0-10.0) 11/04/16: Eosinophils % 1.4 % (0.0-5.0) 11/04/16: Basophils % 0.2 % (0.0-2.0) 11/04/16 17: Sodium 132 mEq/L (136-145) L 11/04/16 17: Potassium 3.8 mEq/L (3.5-5.1) 11/04/16 17: Chloride 97 mEq/L (98-107) L 11/04/16: Carbon Dioxide 26.7 mEq/L (21.0-31.0) 11/04/16: Anion Gap 12.1 (7.0-16.0) 11/04/16 17: BUN 15 mg/dL (7-25) 11/04/16 17: Creatinine 0.7 mg/dL (0.7-1.3) 11/04/16 17: Est GFR ( Amer) TNP 11/04/16 17: Est GFR (Non-Af Amer) TNP 11/04/16: BUN/Creatinine Ratio 21.4 11/04/16: Glucose 122 mg/dL (70-105) H 11/04/16 17: Whole Bld Lactic Acid 2.70 mmol/L (0.60-1.99) H* 11/04/16: Calcium 9.9 mg/dL (8.6-10.3) 11/04/16: Total Bilirubin 0.3 mg/dL (0.3-1.0) 11/04/16: AST 18 U/L (13-39) 11/04/16: ALT 14 U/L (7-52) 11/04/16: Alkaline Phosphatase 58 U/L (34-104) 11/04/16: Troponin I 0.01 ng/mL (0.01-0.05) 11/04/16: Total Protein 7.5 gm/dL (6.0-8.3) 11/04/16: Albumin 3.9 gm/dL (4.2-5.5) L 11/04/16: Globulin 3.6 gm/dL 11/04/16: Albumin/Globulin Ratio 1.1 (1.0-1.8) 11/04/16: Triglycerides 53 mg/dL (<150) 11/04/16 17: Cholesterol 131 mg/dL (<200) 11/04/16: LDL Cholesterol Direct 66 mg/dL (75-193) L 11/04/16: HDL Cholesterol 50 mg/dL (23-92) 11/04/16: TSH 1.69 uIU/ml (0.34-5.60) 11/04/16: Urine Source RANDOM 11/04/16 20:00 Urine Color YELLOW 11/04/16 20:00 Urine Clarity CLEAR (CLEAR) 11/04/16 20:00 Urine pH 6.5 11/04/16 20:00 Ur Specific [place] 1.010 (1.005-1.030) 11/04/16 20:00 Urine Protein NEGATIVE mg/dL (NEGATIVE) 11/04/16 20:00 Urine Glucose (UA) NEGATIVE mg/dL (NEGATIVE) 11/04/16 20:00 Urine Ketones NEGATIVE mg/dL (NEGATIVE) 11/04/16 20:00 Urine Blood SMALL (NEGATIVE) H 11/04/16 20:00 Urine Nitrate NEGATIVE (NEGATIVE) 11/04/16 20:00 Urine Bilirubin NEGATIVE (NEGATIVE) 11/04/16 20:00 Urine Urobilinogen 0.2 E.U./dL (0.2 - 1.0) 11/04/16 20:00 Ur Leukocyte Esterase TRACE (NEGATIVE) H 11/04/16 20:00 Urine RBC 2-5 /hpf (0-5) H 11/04/16 20:00 Urine WBC 2-5 /hpf (0-5) H 11/04/16 20:00 Ur Epithelial Cells NONE SEEN /lpf (FEW) 11/04/16 20:00 Urine Bacteria NONE SEEN /hpf (NONE SEEN) 11/04/16 20:00 Salicylates < 25.0 mg/L (30.0-100.0) L 11/04/16 17:29 Urine Opiates Screen NEGATIVE (NEGATIVE) 11/04/16 20:00 Urine Methadone Screen NEGATIVE (NEGATIVE) 11/04/16 20:00 Acetaminophen < 10.0 ug/mL (10.0-30.0) L 11/04/16 17:29 Ur Barbiturates Screen NEGATIVE (NEGATIVE) 11/04/16 20:00 Valproic Acid 46.1 ug/mL (50.0-100.0) L 11/06/16 10:55 Ur Tricyclics Screen NEGATIVE (NEGATIVE) 11/04/16 20:00 Ur Phencyclidine Scrn NEGATIVE (NEGATIVE) 11/04/16 20:00 Amphetamines Screen NEGATIVE (NEGATIVE) 11/04/16 20:00 U Methamphetamines Scrn NEGATIVE (NEGATIVE) 11/04/16 20:00 U Benzodiazepines Scrn NEGATIVE (NEGATIVE) 11/04/16 20:00 U Cocaine Metab Screen NEGATIVE (NEGATIVE) 11/04/16 20:00 U Cannabinoids Screen NEGATIVE (NEGATIVE) 11/04/16 20:00 Ethyl Alcohol < 10 mg/dL (0-10) 11/04/16 17:29 RPR NONREACTIVE (NONREACTIVE) 11/04/16 17:29 - Physical Exam Vitals and I&O: Vital Signs Temp 98.0 F 11/12/16 06:52 Pulse 67 11/12/16 08:51 Resp 18 11/12/16 07:15 BP 149/55 11/12/16 08:51 Pulse Ox 100 11/12/16 07:15 Intake & Output 11/11/16 11/12/16 11/12/16 18:59 06:59 18:59 Intake Total 1020 Balance 1020 Intake: Oral 1020 Other: # Voids 2 # Bowel Movements 0 Active Medications: Current Medications Acetaminophen (Tylenol) 650 mg PO Q4HR PRN PRN Reason: Mild Pain / Temp above 100 Stop: 01/03/17 20:33 Last Admin: 11/06/16 03:55 Dose: 650 mg Al Hydrox/Mg Hydrox/Simethicone (Maalox) 30 ml PO Q4HR PRN PRN Reason: GI DISTRESS Stop: 01/03/17 20:33 Albuterol Sulfate (Albuterol 2.5mg/3ml Neb Ud) 2.5 mg HHN Q4H PRN PRN Reason: sob Albuterol Sulfate (Albuterol 2.5mg/3ml Neb Ud) 2.5 mg HHN Q6HRT PRN PRN Reason: sob Stop: 01/04/17 09:59 Amlodipine Besylate (Norvasc) 5 mg PO DAILY JOHN Stop: 01/04/17 08:59 Last Admin: 11/12/16 08:51 Dose: 5 mg Aspirin (Ecotrin) 81 mg PO DAILY JOHN Stop: 01/04/17 08:59 Last Admin: 11/12/16 08:50 Dose: 81 mg Atorvastatin Calcium (Lipitor) 20 mg PO DAILY JOHN Stop: 01/04/17 09:59 Last Admin: 11/12/16 08:50 Dose: 20 mg Benazepril HCl (Lotensin) 20 mg PO DAILY JOHN Stop: 01/04/17 08:59 Last Admin: 11/12/16 08:51 Dose: 20 mg Budesonide (Pulmicort) 0.5 mg HHN BIDRT PRN PRN Reason: sob Stop: 01/04/17 10:59 Divalproex Sodium (Depakote Dr) 500 mg PO BID JOHN PRN Reason: Protocol Stop: 01/04/17 08:59 Last Admin: 11/12/16 08:50 Dose: 500 mg Docusate Sodium (Colace) 100 mg PO BID PRN PRN Reason: Constipation Finasteride (Proscar) 5 mg PO DAILY JOHN PRN Reason: Protocol Stop: 01/04/17 08:59 Last Admin: 11/12/16 08:51 Dose: 5 mg Ibuprofen (Motrin) 600 mg PO BID JOHN Stop: 01/05/17 08:59 Last Admin: 11/12/16 08:50 Dose: 600 mg Ipratropium [place] (Atrovent Neb 0.5mg/2.5ml) 0.5 mg HHN Q6HRT PRN PRN Reason: sob Stop: 01/09/17 18:59 Loperamide HCl (Imodium) 2 mg PO PRN PRN PRN Reason: Diarrhea Stop: 01/03/17 21:57 Lorazepam (Ativan) 0.5 mg PO Q4HR PRN; Protocol PRN Reason: Anxiety Stop: 12/04/16 20:33 Last Admin: 11/12/16 03:04 Dose: 0.5 mg Magnesium Hydroxide (Milk Of Magnesia) 30 ml PO HS PRN PRN Reason: Constipation Multivitamins/Vitamin C (Theragran) 1 tab PO DAILY JOHN Stop: 01/04/17 08:59 Last Admin: 11/12/16 08:51 Dose: 1 tab Risperidone (Risperdal) 0.5 mg PO BID JOHN PRN Reason: Protocol Stop: 01/08/17 07:13 Last Admin: 11/12/16 08:52 Dose: 0.5 mg Tamsulosin HCl (Flomax) 0.4 mg PO DAILY JOHN Stop: 01/04/17 08:59 Last Admin: 11/12/16 08:51 Dose: 0.4 mg Zolpidem Tartrate (Ambien) 5 mg PO HSMR1 PRN PRN Reason: Insomnia Stop: 01/03/17 20:33 Last Admin: 11/11/16 20:24 Dose: 5 mg General: alert HEENT: NC/AT, PERRLA Lungs: CTAB Cardiovascular: RRR, Normal S1, Normal S2, without murmur Abdomen: soft, non-tender, non-distended, positive bowel sound Extremities: clear Neurological: no change Internal Medicine Assmt/Plan - Assessment Assessment: HTN hx cva/tia schizophrenia hyponatremia - Plan Plan: fall precautions continue current tx Nutritional Asmnt/Malnutr-PDOC - Dietary Evaluation Malnutrition Findings (Please click <Entered> for more info): Nutritional Asmnt/Malnutrition Start: 11/06/16 17: 19 Text: Status: Complete Freq: Document 11/06/16 17:19 GSUN (Rec: 11/06/16 17:25 [email or web address] [email or web address]) Nutritional Asmnt/Malnutrition Patient General Information Nutritional Screening Moderate Risk Screening Diagnosis Unspecified psychosis, 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 Pt ambulates in wheelchair. Pt is talkative, however difficult to understand, unclear speech vs. dx mild to moderate mental retardation. 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 No significant wasting noted. Avg PO intake 100% of meals since adm, meeting nutritional needs. Current Diet Order/ Nutrition Support Low sodium Pertinent Medications Lipitor, Colace, MOM, Theragran Pertinent Labs 11/04: glucose 122H Nutritional Hx/Data Height 6 in Height (Calculated Centimeters) 15.2 Current Weight (lbs) 160 lb Weight (Calculated Kilograms) 72.6 Weight (Calculated Grams) 01528.8 [place] Body Weight 178 Weight Status Approriate GI Symptoms Food Allergies No Skin Integrity/Comment: Earnest 20. Skin intact. Current %PO Good (75-100%) Estimated Nutritional Goals BEE in Kcals: Using Current wt Calories/Kcals/Kg CBW 160lb/72.7kg Kcals Calculated 1818-2181kcal (25-30kcal/kg) Protein: Using Current wt Protein Calculated 73g (1g/kg) Fluid: ml 1818-2181ml (1ml/kcal) Nutritional Problem 1. Problem Problem No nutritional problem at this time. Intervention/Recommendation Comments 1. Continue with current diet order. Avg PO intake is adequate. Expected Outcomes/Goals Expected Outcomes/Goals 1. PO intake continue to meet at least 75% of estimated nutritional needs.
--- NOTE | 2016-11-12 20:09 | Progress Notes ---
DATE: 11/11/2016 SUBJECTIVE: Chart reviewed and the patient interviewed. Also, discussed the patient's condition with the staff and reviewed records and labs. The patient is still exhibiting "childish behavior" according to the staff. He is still making noises that upsetting everybody else and he has no explanation to making this. Continuous noises that sometimes last for a long time. He also is still acting bizarre and he is still unable to follow directions. The patient also is easily agitated and easily irritable. ASSESSMENT: The patient is still psychotic and agitated. TREATMENT PLAN: We will continue monitoring his behavior and his condition. Also, we will continue Risperdal and continue to adjust the dose. JOB# [id number]
[2016-11-13] MEDS: Atorvastatin Calcium 10 MG TAB PO SCH (10:00)
[2016-11-13] MEDS: Multivitamin Tab PO SCH (10:00)
--- NOTE | 2016-11-13 13:12 | Internal Medicine Prog Note ---
Internal Medicine Subjective - Subjective Service Date: 11/13/16 Patient is:: awake Per staff patient has:: refusing care, refusing labs Internal Medicine Objective - Results Result Diagrams: 11/04/16 17:11/04/16 17: Recent Labs: Laboratory Last Values WBC 6.3 Th/cmm (4.8-10.8) 11/04/16 17: RBC 3.95 Mil/cmm (3.80-5.80) 11/04/16 17: Hgb 11.0 gm/dL (12.6-17.4) L 11/04/16 17: Hct 32.9 % (39.0-49.0) L 11/04/16: MCV 83.4 fl (80-99) 11/04/16: MCH 27.8 pg (27.0-31.0) 11/04/16: MCHC Differential 33.4 pg (28.0-36.0) 11/04/16: RDW 13.7 % (11.5-20.0) 11/04/16: Plt Count 304 Th/cmm (150-400) 11/04/16 17: MPV 6.8 fl 11/04/16 17: Neutrophils % 71.3 % (40.0-80.0) 11/04/16: Lymphocytes % 19.8 % (20.0-50.0) L 11/04/16: Monocytes % 7.3 % (2.0-10.0) 11/04/16: Eosinophils % 1.4 % (0.0-5.0) 11/04/16 17: Basophils % 0.2 % (0.0-2.0) 11/04/16 17: Sodium 132 mEq/L (136-145) L 11/04/16 17: Potassium 3.8 mEq/L (3.5-5.1) 11/04/16 17: Chloride 97 mEq/L (98-107) L 11/04/16: Carbon Dioxide 26.7 mEq/L (21.0-31.0) 11/04/16: Anion Gap 12.1 (7.0-16.0) 11/04/16 17: BUN 15 mg/dL (7-25) 11/04/16 17: Creatinine 0.7 mg/dL (0.7-1.3) 11/04/16 17: Est GFR ( Amer) TNP 11/04/16 17: Est GFR (Non-Af Amer) TNP 11/04/16: BUN/Creatinine Ratio 21.4 11/04/16: Glucose 122 mg/dL (70-105) H 11/04/16 17: Whole Bld Lactic Acid 2.70 mmol/L (0.60-1.99) H* 11/04/16: Calcium 9.9 mg/dL (8.6-10.3) 11/04/16: Total Bilirubin 0.3 mg/dL (0.3-1.0) 11/04/16: AST 18 U/L (13-39) 11/04/16: ALT 14 U/L (7-52) 11/04/16: Alkaline Phosphatase 58 U/L (34-104) 11/04/16: Troponin I 0.01 ng/mL (0.01-0.05) 11/04/16: Total Protein 7.5 gm/dL (6.0-8.3) 11/04/16: Albumin 3.9 gm/dL (4.2-5.5) L 11/04/16: Globulin 3.6 gm/dL 11/04/16: Albumin/Globulin Ratio 1.1 (1.0-1.8) 11/04/16: Triglycerides 53 mg/dL (<150) 11/04/16 17: Cholesterol 131 mg/dL (<200) 11/04/16: LDL Cholesterol Direct 66 mg/dL (75-193) L 11/04/16: HDL Cholesterol 50 mg/dL (23-92) 11/04/16: TSH 1.69 uIU/ml (0.34-5.60) 11/04/16: Urine Source RANDOM 11/04/16 20:00 Urine Color YELLOW 11/04/16 20:00 Urine Clarity CLEAR (CLEAR) 11/04/16 20:00 Urine pH 6.5 11/04/16 20:00 Ur Specific [place] 1.010 (1.005-1.030) 11/04/16 20:00 Urine Protein NEGATIVE mg/dL (NEGATIVE) 11/04/16 20:00 Urine Glucose (UA) NEGATIVE mg/dL (NEGATIVE) 11/04/16 20:00 Urine Ketones NEGATIVE mg/dL (NEGATIVE) 11/04/16 20:00 Urine Blood SMALL (NEGATIVE) H 11/04/16 20:00 Urine Nitrate NEGATIVE (NEGATIVE) 11/04/16 20:00 Urine Bilirubin NEGATIVE (NEGATIVE) 11/04/16 20:00 Urine Urobilinogen 0.2 E.U./dL (0.2 - 1.0) 11/04/16 20:00 Ur Leukocyte Esterase TRACE (NEGATIVE) H 11/04/16 20:00 Urine RBC 2-5 /hpf (0-5) H 11/04/16 20:00 Urine WBC 2-5 /hpf (0-5) H 11/04/16 20:00 Ur Epithelial Cells NONE SEEN /lpf (FEW) 11/04/16 20:00 Urine Bacteria NONE SEEN /hpf (NONE SEEN) 11/04/16 20:00 Salicylates < 25.0 mg/L (30.0-100.0) L 11/04/16 17:29 Urine Opiates Screen NEGATIVE (NEGATIVE) 11/04/16 20:00 Urine Methadone Screen NEGATIVE (NEGATIVE) 11/04/16 20:00 Acetaminophen < 10.0 ug/mL (10.0-30.0) L 11/04/16 17:29 Ur Barbiturates Screen NEGATIVE (NEGATIVE) 11/04/16 20:00 Valproic Acid 46.1 ug/mL (50.0-100.0) L 11/06/16 10:55 Ur Tricyclics Screen NEGATIVE (NEGATIVE) 11/04/16 20:00 Ur Phencyclidine Scrn NEGATIVE (NEGATIVE) 11/04/16 20:00 Amphetamines Screen NEGATIVE (NEGATIVE) 11/04/16 20:00 U Methamphetamines Scrn NEGATIVE (NEGATIVE) 11/04/16 20:00 U Benzodiazepines Scrn NEGATIVE (NEGATIVE) 11/04/16 20:00 U Cocaine Metab Screen NEGATIVE (NEGATIVE) 11/04/16 20:00 U Cannabinoids Screen NEGATIVE (NEGATIVE) 11/04/16 20:00 Ethyl Alcohol < 10 mg/dL (0-10) 11/04/16 17:29 RPR NONREACTIVE (NONREACTIVE) 11/04/16 17:29 - Physical Exam Vitals and I&O: Vital Signs Temp 97.8 F 11/12/16 17:45 Pulse 71 11/13/16 08:30 Resp 18 11/13/16 07:56 BP 106/72 11/13/16 08:30 Pulse Ox 99 11/13/16 07:56 Intake & Output 11/12/16 11/13/16 11/13/16 18:59 06:59 18:59 Intake Total 800 Balance 800 Intake: Oral 800 Other: # Voids 3 2 # Bowel Movements 1 Active Medications: Current Medications Acetaminophen (Tylenol) 650 mg PO Q4HR PRN PRN Reason: Mild Pain / Temp above 100 Stop: 01/03/17 20:33 Last Admin: 11/06/16 03:55 Dose: 650 mg Al Hydrox/Mg Hydrox/Simethicone (Maalox) 30 ml PO Q4HR PRN PRN Reason: GI DISTRESS Stop: 01/03/17 20:33 Albuterol Sulfate (Albuterol 2.5mg/3ml Neb Ud) 2.5 mg HHN Q4H PRN PRN Reason: sob Albuterol Sulfate (Albuterol 2.5mg/3ml Neb Ud) 2.5 mg HHN Q6HRT PRN PRN Reason: sob Stop: 01/04/17 09:59 Amlodipine Besylate (Norvasc) 5 mg PO DAILY JOHN Stop: 01/04/17 08:59 Last Admin: 11/13/16 08:29 Dose: Not Given Aspirin (Ecotrin) 81 mg PO DAILY JOHN Stop: 01/04/17 08:59 Last Admin: 11/13/16 10:00 Dose: 81 mg Atorvastatin Calcium (Lipitor) 20 mg PO DAILY [facility] Stop: 01/04/17 09:59 Last Admin: 11/13/16 10:00 Dose: 20 mg Benazepril HCl (Lotensin) 20 mg PO DAILY JOHN Stop: 01/04/17 08:59 Last Admin: 11/13/16 08:30 Dose: Not Given Budesonide (Pulmicort) 0.5 mg HHN BIDRT PRN PRN Reason: sob Stop: 01/04/17 10:59 Divalproex Sodium (Depakote Dr) 500 mg PO BID JOHN PRN Reason: Protocol Stop: 01/04/17 08:59 Last Admin: 11/13/16 10:00 Dose: 500 mg Docusate Sodium (Colace) 100 mg PO BID PRN PRN Reason: Constipation Last Admin: 11/13/16 10:00 Dose: 100 mg Finasteride (Proscar) 5 mg PO DAILY JOHN PRN Reason: Protocol Stop: 01/04/17 08:59 Last Admin: 11/13/16 10:00 Dose: 5 mg Ibuprofen (Motrin) 600 mg PO BID JOHN Stop: 01/05/17 08:59 Last Admin: 11/13/16 10:00 Dose: 600 mg Ipratropium [place] (Atrovent Neb 0.5mg/2.5ml) 0.5 mg HHN Q6HRT PRN PRN Reason: sob Stop: 01/09/17 18:59 Loperamide HCl (Imodium) 2 mg PO PRN PRN PRN Reason: Diarrhea Stop: 01/03/17 21:57 Lorazepam (Ativan) 0.5 mg PO Q4HR PRN; Protocol PRN Reason: Anxiety Stop: 12/04/16 20:33 Last Admin: 11/13/16 02:55 Dose: 0.5 mg Magnesium Hydroxide (Milk Of Magnesia) 30 ml PO HS PRN PRN Reason: Constipation Multivitamins/Vitamin C (Theragran) 1 tab PO DAILY JOHN Stop: 01/04/17 08:59 Last Admin: 11/13/16 10:00 Dose: 1 tab Risperidone (Risperdal) 0.5 mg PO BID JOHN PRN Reason: Protocol Stop: 01/08/17 07:13 Last Admin: 11/13/16 10:00 Dose: 0.5 mg Tamsulosin HCl (Flomax) 0.4 mg PO DAILY JOHN Stop: 01/04/17 08:59 Last Admin: 11/13/16 10:00 Dose: 0.4 mg Zolpidem Tartrate (Ambien) 5 mg PO HSMR1 PRN PRN Reason: Insomnia Stop: 01/03/17 20:33 Last Admin: 11/12/16 20:59 Dose: 5 mg General: alert HEENT: NC/AT, PERRLA Lungs: CTAB Cardiovascular: RRR, Normal S1, Normal S2, without murmur Abdomen: soft, non-tender, non-distended, positive bowel sound Extremities: clear Neurological: no change Internal Medicine Assmt/Plan - Assessment Assessment: HTN hx cva/tia schizophrenia hyponatremia - Plan Plan: fall precautions continue current tx Nutritional Asmnt/Malnutr-PDOC - Dietary Evaluation Malnutrition Findings (Please click <Entered> for more info): Nutritional Asmnt/Malnutrition Start: 11/06/16 17: 19 Text: Status: Complete Freq: Document 11/06/16 17:19 GSUN (Rec: 11/06/16 17:25 [email or web address] [email or web address]) Nutritional Asmnt/Malnutrition Patient General Information Nutritional Screening Moderate Risk Screening Diagnosis Unspecified psychosis, 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 Pt ambulates in wheelchair. Pt is talkative, however difficult to understand, unclear speech vs. dx mild to moderate mental retardation. 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 No significant wasting noted. Avg PO intake 100% of meals since adm, meeting nutritional needs. Current Diet Order/ Nutrition Support Low sodium Pertinent Medications Lipitor, Colace, MOM, Theragran Pertinent Labs 11/04: glucose 122H Nutritional Hx/Data Height 6 in Height (Calculated Centimeters) 15.2 Current Weight (lbs) 160 lb Weight (Calculated Kilograms) 72.6 Weight (Calculated Grams) 60289.8 [place] Body Weight 178 Weight Status Approriate GI Symptoms Food Allergies No Skin Integrity/Comment: Earnest 20. Skin intact. Current %PO Good (75-100%) Estimated Nutritional Goals BEE in Kcals: Using Current wt Calories/Kcals/Kg CBW 160lb/72.7kg Kcals Calculated 1818-2181kcal (25-30kcal/kg) Protein: Using Current wt Protein Calculated 73g (1g/kg) Fluid: ml 1818-2181ml (1ml/kcal) Nutritional Problem 1. Problem Problem No nutritional problem at this time. Intervention/Recommendation Comments 1. Continue with current diet order. Avg PO intake is adequate. Expected Outcomes/Goals Expected Outcomes/Goals 1. PO intake continue to meet at least 75% of estimated nutritional needs.
--- NOTE | 2016-11-13 23:58 | Progress Notes ---
DATE: 11/13/2016 SUBJECTIVE: Chart reviewed and the patient interviewed. Also discussed the patient's condition with the staff and reviewed records and labs. The patient continues to be confused and is still agitated. The patient also still needs a lot of redirections. Still having childish-like behavior. Also, is still making noise that is nonstop for long periods of time and difficulty following directions. The patient also is still disruptive and is still in angry and in irritable mood. ASSESSMENT: The patient is still psychotic. TREATMENT PLAN: We will continue monitoring his behavior and his condition closely. Also, continue working on his irritability and his agitation and continue to follow up. JOB# [id number]
[2016-11-14] MEDS: Multivitamin Tab PO SCH ×2 (09:20→09:34)
[2016-11-14] MEDS: Atorvastatin Calcium 10 MG TAB PO SCH ×2 (09:22→09:34)
--- NOTE | 2016-11-14 10:57 | Internal Medicine Prog Note ---
Internal Medicine Subjective - Subjective Service Date: 11/14/16 Patient is:: awake Per staff patient has:: refusing care, refusing labs Internal Medicine Objective - Results Result Diagrams: 11/04/16 17:11/04/16 17: Recent Labs: Laboratory Last Values WBC 6.3 Th/cmm (4.8-10.8) 11/04/16 17: RBC 3.95 Mil/cmm (3.80-5.80) 11/04/16 17: Hgb 11.0 gm/dL (12.6-17.4) L 11/04/16 17: Hct 32.9 % (39.0-49.0) L 11/04/16: MCV 83.4 fl (80-99) 11/04/16: MCH 27.8 pg (27.0-31.0) 11/04/16: MCHC Differential 33.4 pg (28.0-36.0) 11/04/16: RDW 13.7 % (11.5-20.0) 11/04/16: Plt Count 304 Th/cmm (150-400) 11/04/16 17: MPV 6.8 fl 11/04/16 17: Neutrophils % 71.3 % (40.0-80.0) 11/04/16: Lymphocytes % 19.8 % (20.0-50.0) L 11/04/16: Monocytes % 7.3 % (2.0-10.0) 11/04/16: Eosinophils % 1.4 % (0.0-5.0) 11/04/16: Basophils % 0.2 % (0.0-2.0) 11/04/16 17: Sodium 132 mEq/L (136-145) L 11/04/16 17: Potassium 3.8 mEq/L (3.5-5.1) 11/04/16 17: Chloride 97 mEq/L (98-107) L 11/04/16: Carbon Dioxide 26.7 mEq/L (21.0-31.0) 11/04/16: Anion Gap 12.1 (7.0-16.0) 11/04/16 17: BUN 15 mg/dL (7-25) 11/04/16 17: Creatinine 0.7 mg/dL (0.7-1.3) 11/04/16 17: Est GFR ( Amer) TNP 11/04/16 17: Est GFR (Non-Af Amer) TNP 11/04/16: BUN/Creatinine Ratio 21.4 11/04/16: Glucose 122 mg/dL (70-105) H 11/04/16 17: Whole Bld Lactic Acid 2.70 mmol/L (0.60-1.99) H* 11/04/16: Calcium 9.9 mg/dL (8.6-10.3) 11/04/16: Total Bilirubin 0.3 mg/dL (0.3-1.0) 11/04/16: AST 18 U/L (13-39) 11/04/16: ALT 14 U/L (7-52) 11/04/16: Alkaline Phosphatase 58 U/L (34-104) 11/04/16: Troponin I 0.01 ng/mL (0.01-0.05) 11/04/16: Total Protein 7.5 gm/dL (6.0-8.3) 11/04/16: Albumin 3.9 gm/dL (4.2-5.5) L 11/04/16: Globulin 3.6 gm/dL 11/04/16: Albumin/Globulin Ratio 1.1 (1.0-1.8) 11/04/16: Triglycerides 53 mg/dL (<150) 11/04/16 17: Cholesterol 131 mg/dL (<200) 11/04/16: LDL Cholesterol Direct 66 mg/dL (75-193) L 11/04/16: HDL Cholesterol 50 mg/dL (23-92) 11/04/16: TSH 1.69 uIU/ml (0.34-5.60) 11/04/16: Urine Source RANDOM 11/04/16 20:00 Urine Color YELLOW 11/04/16 20:00 Urine Clarity CLEAR (CLEAR) 11/04/16 20:00 Urine pH 6.5 11/04/16 20:00 Ur Specific [place] 1.010 (1.005-1.030) 11/04/16 20:00 Urine Protein NEGATIVE mg/dL (NEGATIVE) 11/04/16 20:00 Urine Glucose (UA) NEGATIVE mg/dL (NEGATIVE) 11/04/16 20:00 Urine Ketones NEGATIVE mg/dL (NEGATIVE) 11/04/16 20:00 Urine Blood SMALL (NEGATIVE) H 11/04/16 20:00 Urine Nitrate NEGATIVE (NEGATIVE) 11/04/16 20:00 Urine Bilirubin NEGATIVE (NEGATIVE) 11/04/16 20:00 Urine Urobilinogen 0.2 E.U./dL (0.2 - 1.0) 11/04/16 20:00 Ur Leukocyte Esterase TRACE (NEGATIVE) H 11/04/16 20:00 Urine RBC 2-5 /hpf (0-5) H 11/04/16 20:00 Urine WBC 2-5 /hpf (0-5) H 11/04/16 20:00 Ur Epithelial Cells NONE SEEN /lpf (FEW) 11/04/16 20:00 Urine Bacteria NONE SEEN /hpf (NONE SEEN) 11/04/16 20:00 Salicylates < 25.0 mg/L (30.0-100.0) L 11/04/16 17:29 Urine Opiates Screen NEGATIVE (NEGATIVE) 11/04/16 20:00 Urine Methadone Screen NEGATIVE (NEGATIVE) 11/04/16 20:00 Acetaminophen < 10.0 ug/mL (10.0-30.0) L 11/04/16 17:29 Ur Barbiturates Screen NEGATIVE (NEGATIVE) 11/04/16 20:00 Valproic Acid 46.1 ug/mL (50.0-100.0) L 11/06/16 10:55 Ur Tricyclics Screen NEGATIVE (NEGATIVE) 11/04/16 20:00 Ur Phencyclidine Scrn NEGATIVE (NEGATIVE) 11/04/16 20:00 Amphetamines Screen NEGATIVE (NEGATIVE) 11/04/16 20:00 U Methamphetamines Scrn NEGATIVE (NEGATIVE) 11/04/16 20:00 U Benzodiazepines Scrn NEGATIVE (NEGATIVE) 11/04/16 20:00 U Cocaine Metab Screen NEGATIVE (NEGATIVE) 11/04/16 20:00 U Cannabinoids Screen NEGATIVE (NEGATIVE) 11/04/16 20:00 Ethyl Alcohol < 10 mg/dL (0-10) 11/04/16 17:29 RPR NONREACTIVE (NONREACTIVE) 11/04/16 17:29 - Physical Exam Vitals and I&O: Vital Signs Temp 97.8 F 11/12/16 17:45 Pulse 80 11/13/16 20:00 Resp 20 11/13/16 20:00 BP 106/72 11/13/16 08:30 Pulse Ox 98 11/13/16 18:00 Intake & Output 11/13/16 11/14/16 11/14/16 18:59 06:59 18:59 Other: # Voids 2 2 Active Medications: Current Medications Acetaminophen (Tylenol) 650 mg PO Q4HR PRN PRN Reason: Mild Pain / Temp above 100 Stop: 01/03/17 20:33 Last Admin: 11/06/16 03:55 Dose: 650 mg Al Hydrox/Mg Hydrox/Simethicone (Maalox) 30 ml PO Q4HR PRN PRN Reason: GI DISTRESS Stop: 01/03/17 20:33 Albuterol Sulfate (Albuterol 2.5mg/3ml Neb Ud) 2.5 mg HHN Q4H PRN PRN Reason: sob Albuterol Sulfate (Albuterol 2.5mg/3ml Neb Ud) 2.5 mg HHN Q6HRT PRN PRN Reason: sob Stop: 01/04/17 09:59 Amlodipine Besylate (Norvasc) 5 mg PO DAILY JOHN Stop: 01/04/17 08:59 Last Admin: 11/14/16 09:22 Dose: Not Given Aspirin (Ecotrin) 81 mg PO DAILY JOHN Stop: 01/04/17 08:59 Last Admin: 11/14/16 09:34 Dose: Not Given Atorvastatin Calcium (Lipitor) 20 mg PO DAILY JOHN Stop: 01/04/17 09:59 Last Admin: 11/14/16 09:34 Dose: Not Given Benazepril HCl (Lotensin) 20 mg PO DAILY JOHN Stop: 01/04/17 08:59 Last Admin: 11/14/16 09:23 Dose: Not Given Budesonide (Pulmicort) 0.5 mg HHN BIDRT PRN PRN Reason: sob Stop: 01/04/17 10:59 Divalproex Sodium (Depakote Dr) 500 mg PO BID JOHN PRN Reason: Protocol Stop: 01/04/17 08:59 Last Admin: 11/14/16 09:34 Dose: Not Given Docusate Sodium (Colace) 100 mg PO BID PRN PRN Reason: Constipation Last Admin: 11/13/16 10:00 Dose: 100 mg Finasteride (Proscar) 5 mg PO DAILY JOHN PRN Reason: Protocol Stop: 01/04/17 08:59 Last Admin: 11/14/16 09:34 Dose: Not Given Ibuprofen (Motrin) 600 mg PO BID JOHN Stop: 01/05/17 08:59 Last Admin: 11/14/16 09:33 Dose: Not Given Ipratropium [place] (Atrovent Neb 0.5mg/2.5ml) 0.5 mg HHN Q6HRT PRN PRN Reason: sob Stop: 01/09/17 18:59 Loperamide HCl (Imodium) 2 mg PO PRN PRN PRN Reason: Diarrhea Stop: 01/03/17 21:57 Lorazepam (Ativan) 0.5 mg PO Q4HR PRN; Protocol PRN Reason: Anxiety Stop: 12/04/16 20:33 Last Admin: 11/13/16 15:40 Dose: 0.5 mg Magnesium Hydroxide (Milk Of Magnesia) 30 ml PO HS PRN PRN Reason: Constipation Multivitamins/Vitamin C (Theragran) 1 tab PO DAILY JOHN Stop: 01/04/17 08:59 Last Admin: 11/14/16 09:34 Dose: Not Given Risperidone (Risperdal) 0.5 mg PO BID JOHN PRN Reason: Protocol Stop: 01/08/17 07:13 Last Admin: 11/14/16 09:35 Dose: Not Given Tamsulosin HCl (Flomax) 0.4 mg PO DAILY JOHN Stop: 01/04/17 08:59 Last Admin: 11/14/16 09:35 Dose: Not Given Zolpidem Tartrate (Ambien) 5 mg PO HSMR1 PRN PRN Reason: Insomnia Stop: 01/03/17 20:33 Last Admin: 11/12/16 20:59 Dose: 5 mg General: alert HEENT: NC/AT, PERRLA Lungs: CTAB Cardiovascular: RRR, Normal S1, Normal S2, without murmur Abdomen: soft, non-tender, non-distended, positive bowel sound Extremities: clear Neurological: no change Internal Medicine Assmt/Plan - Assessment Assessment: HTN hx cva/tia schizophrenia hyponatremia - Plan Plan: fall precautions continue current tx Nutritional Asmnt/Malnutr-PDOC - Dietary Evaluation Malnutrition Findings (Please click <Entered> for more info): Nutritional Asmnt/Malnutrition Start: 11/06/16 17: 19 Text: Status: Complete Freq: Document 11/06/16 17:19 GSUN (Rec: 11/06/16 17:25 [email or web address] [email or web address]) Nutritional Asmnt/Malnutrition Patient General Information Nutritional Screening Moderate Risk Screening Diagnosis Unspecified psychosis, 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 Pt ambulates in wheelchair. Pt is talkative, however difficult to understand, unclear speech vs. dx mild to moderate mental retardation. Spoek to pt during meal time in rec room, pt was focused on eating, was only able to tell RD "I want some cake." Pt is edentulous, [employer] denied difficulties chewing/swallowing. No significant wasting noted. Avg PO intake 100% of meals since adm, meeting nutritional needs. Current Diet Order/ Nutrition Support Low sodium Pertinent Medications Lipitor, Colace, MOM, Theragran Pertinent Labs 11/04: glucose 122H Nutritional Hx/Data Height 6 in Height (Calculated Centimeters) 15.2 Current Weight (lbs) 160 lb Weight (Calculated Kilograms) 72.6 Weight (Calculated Grams) 07444.8 [place] Body Weight 178 Weight Status Approriate GI Symptoms Food Allergies No Skin Integrity/Comment: Earnest 20. Skin intact. Current %PO Good (75-100%) Estimated Nutritional Goals BEE in Kcals: Using Current wt Calories/Kcals/Kg CBW 160lb/72.7kg Kcals Calculated 1818-2181kcal (25-30kcal/kg) Protein: Using Current wt Protein Calculated 73g (1g/kg) Fluid: ml 1818-2181ml (1ml/kcal) Nutritional Problem 1. Problem Problem No nutritional problem at this time. Intervention/Recommendation Comments 1. Continue with current diet order. Avg PO intake is adequate. Expected Outcomes/Goals Expected Outcomes/Goals 1. PO intake continue to meet at least 75% of estimated nutritional needs.
--- NOTE | 2016-11-14 21:32 | Progress Notes ---
DATE: 11/14/2016 SUBJECTIVE: Chart reviewed and the patient interviewed. Also, discussed the patient's condition with the staff and reviewed records and labs. The patient is still confused and he is still actively responding to stimuli. The patient also is still talking to himself. He also is still having severe mood swings. Also, still gets agitated when staff tries to help him with his ADLs. Otherwise, the patient is compliant with taking his medications. The patient denies any side effects of medications. ASSESSMENT: The patient is still confused and agitated. TREATMENT PLAN: Continue to monitor behavior and continue adjusting psychotropic medications. Also, continue to work on behavioral modification. Also, continue to work on his irritability and confusion. [facility]# [id number]
[2016-11-15] MEDS: Multivitamin Tab PO SCH (09:03)
[2016-11-15] MEDS: Atorvastatin Calcium 10 MG TAB PO SCH (09:04)
--- NOTE | 2016-11-15 10:25 | Progress Notes ---
DATE: 11/15/2016 SUBJECTIVE: The patient is currently in the hospital, refuses to answer any questions, refusing to speak with me. He is currently here because of agitation, hitting staff, coming from [facility], remains inappropriate. I have seen this patient before, mumbling, screaming, yelling, nonsensical. Staff noting he requires a lot of prompting and redirection. Medications were reviewed. Labs were reviewed. The patient is not safe for a lower level of care. ASSESSMENT: The patient remains symptomatic, yelling, screaming, agitated, aggressive, developmentally disabled. PLAN: We will continue to monitor. We will increase Risperdal today. Given the patient's current symptoms, he is not safe for discharge. [facility]# [id number]
--- NOTE | 2016-11-15 15:25 | Internal Medicine Prog Note ---
Internal Medicine Subjective - Subjective Patient seen and examined:: with staff, chart reviewed Patient is:: awake, verbal, non-interactive, ambulating Per staff patient has:: no adverse event, noncompliant, confused, refusing care , refusing labs Internal Medicine Objective - Results Result Diagrams: 11/04/16 17:11/04/16 17: Recent Labs: Laboratory Last Values WBC 6.3 Th/cmm (4.8-10.8) 11/04/16: RBC 3.95 Mil/cmm (3.80-5.80) 11/04/16 17: Hgb 11.0 gm/dL (12.6-17.4) L 11/04/16: Hct 32.9 % (39.0-49.0) L 11/04/16: MCV 83.4 fl (80-99) 11/04/16: MCH 27.8 pg (27.0-31.0) 11/04/16: MCHC Differential 33.4 pg (28.0-36.0) 11/04/16: RDW 13.7 % (11.5-20.0) 11/04/16: Plt Count 304 Th/cmm (150-400) 11/04/16: MPV 6.8 fl 11/04/16: Neutrophils % 71.3 % (40.0-80.0) 11/04/16: Lymphocytes % 19.8 % (20.0-50.0) L 11/04/16: Monocytes % 7.3 % (2.0-10.0) 11/04/16: Eosinophils % 1.4 % (0.0-5.0) 11/04/16: Basophils % 0.2 % (0.0-2.0) 11/04/16: Sodium 132 mEq/L (136-145) L 11/04/16: Potassium 3.8 mEq/L (3.5-5.1) 11/04/16: Chloride 97 mEq/L (98-107) L 11/04/16: Carbon Dioxide 26.7 mEq/L (21.0-31.0) 11/04/16 17: Anion Gap 12.1 (7.0-16.0) 11/04/16 17: BUN 15 mg/dL (7-25) 11/04/16: Creatinine 0.7 mg/dL (0.7-1.3) 11/04/16 17: Est GFR ( Amer) TNP 11/04/16 17: Est GFR (Non-Af Amer) TNP 11/04/16: BUN/Creatinine Ratio 21.4 11/04/16: Glucose 122 mg/dL (70-105) H 11/04/16: Whole Bld Lactic Acid 2.70 mmol/L (0.60-1.99) H* 11/04/16: Calcium 9.9 mg/dL (8.6-10.3) 11/04/16: Total Bilirubin 0.3 mg/dL (0.3-1.0) 11/04/16: AST 18 U/L (13-39) 11/04/16: ALT 14 U/L (7-52) 11/04/16: Alkaline Phosphatase 58 U/L (34-104) 11/04/16: Troponin I 0.01 ng/mL (0.01-0.05) 11/04/16: Total Protein 7.5 gm/dL (6.0-8.3) 11/04/16: Albumin 3.9 gm/dL (4.2-5.5) L 11/04/16: Globulin 3.6 gm/dL 11/04/16: Albumin/Globulin Ratio 1.1 (1.0-1.8) 11/04/16: Triglycerides 53 mg/dL (<150) 11/04/16: Cholesterol 131 mg/dL (<200) 11/04/16: LDL Cholesterol Direct 66 mg/dL (75-193) L 11/04/16: HDL Cholesterol 50 mg/dL (23-92) 11/04/16: TSH 1.69 uIU/ml (0.34-5.60) 11/04/16: Urine Source RANDOM 11/04/16 20:00 Urine Color YELLOW 11/04/16 20:00 Urine Clarity CLEAR (CLEAR) 11/04/16 20:00 Urine pH 6.5 11/04/16 20:00 Ur Specific [place] 1.010 (1.005-1.030) 11/04/16 20:00 Urine Protein NEGATIVE mg/dL (NEGATIVE) 11/04/16 20:00 Urine Glucose (UA) NEGATIVE mg/dL (NEGATIVE) 11/04/16 20:00 Urine Ketones NEGATIVE mg/dL (NEGATIVE) 11/04/16 20:00 Urine Blood SMALL (NEGATIVE) H 11/04/16 20:00 Urine Nitrate NEGATIVE (NEGATIVE) 11/04/16 20:00 Urine Bilirubin NEGATIVE (NEGATIVE) 11/04/16 20:00 Urine Urobilinogen 0.2 E.U./dL (0.2 - 1.0) 11/04/16 20:00 Ur Leukocyte Esterase TRACE (NEGATIVE) H 11/04/16 20:00 Urine RBC 2-5 /hpf (0-5) H 11/04/16 20:00 Urine WBC 2-5 /hpf (0-5) H 11/04/16 20:00 Ur Epithelial Cells NONE SEEN /lpf (FEW) 11/04/16 20:00 Urine Bacteria NONE SEEN /hpf (NONE SEEN) 11/04/16 20:00 Salicylates < 25.0 mg/L (30.0-100.0) L 11/04/16 17:29 Urine Opiates Screen NEGATIVE (NEGATIVE) 11/04/16 20:00 Urine Methadone Screen NEGATIVE (NEGATIVE) 11/04/16 20:00 Acetaminophen < 10.0 ug/mL (10.0-30.0) L 11/04/16 17:29 Ur Barbiturates Screen NEGATIVE (NEGATIVE) 11/04/16 20:00 Valproic Acid 46.1 ug/mL (50.0-100.0) L 11/06/16 10:55 Ur Tricyclics Screen NEGATIVE (NEGATIVE) 11/04/16 20:00 Ur Phencyclidine Scrn NEGATIVE (NEGATIVE) 11/04/16 20:00 Amphetamines Screen NEGATIVE (NEGATIVE) 11/04/16 20:00 U Methamphetamines Scrn NEGATIVE (NEGATIVE) 11/04/16 20:00 U Benzodiazepines Scrn NEGATIVE (NEGATIVE) 11/04/16 20:00 U Cocaine Metab Screen NEGATIVE (NEGATIVE) 11/04/16 20:00 U Cannabinoids Screen NEGATIVE (NEGATIVE) 11/04/16 20:00 Ethyl Alcohol < 10 mg/dL (0-10) 11/04/16 17:29 RPR NONREACTIVE (NONREACTIVE) 11/04/16 17:29 - Physical Exam Vitals and I&O: Vital Signs Temp 97.6 F 11/15/16 06:39 Pulse 74 11/15/16 09:04 Resp 14 11/15/16 07:00 BP 161/78 11/15/16 09:04 Pulse Ox 96 11/15/16 07:00 Intake & Output 11/14/16 11/15/16 11/15/16 18:59 06:59 18:59 Intake Total 1200 Balance 1200 Intake: Oral 1200 Other: # Bowel Movements 1 Active Medications: Current Medications Acetaminophen (Tylenol) 650 mg PO Q4HR PRN PRN Reason: Mild Pain / Temp above 100 Stop: 01/03/17 20:33 Last Admin: 11/06/16 03:55 Dose: 650 mg Al Hydrox/Mg Hydrox/Simethicone (Maalox) 30 ml PO Q4HR PRN PRN Reason: GI DISTRESS Stop: 01/03/17 20:33 Albuterol Sulfate (Albuterol 2.5mg/3ml Neb Ud) 2.5 mg HHN Q4H PRN PRN Reason: sob Albuterol Sulfate (Albuterol 2.5mg/3ml Neb Ud) 2.5 mg HHN Q6HRT PRN PRN Reason: sob Stop: 01/04/17 09:59 Amlodipine Besylate (Norvasc) 5 mg PO DAILY JOHN Stop: 01/04/17 08:59 Last Admin: 11/15/16 09:04 Dose: 5 mg Aspirin (Ecotrin) 81 mg PO DAILY JOHN Stop: 01/04/17 08:59 Last Admin: 11/15/16 09:04 Dose: 81 mg Atorvastatin Calcium (Lipitor) 20 mg PO DAILY JOHN Stop: 01/04/17 09:59 Last Admin: 11/15/16 09:04 Dose: 20 mg Benazepril HCl (Lotensin) 20 mg PO DAILY JOHN Stop: 01/04/17 08:59 Last Admin: 11/15/16 09:03 Dose: 20 mg Budesonide (Pulmicort) 0.5 mg HHN BIDRT PRN PRN Reason: sob Stop: 01/04/17 10:59 Divalproex Sodium (Depakote Dr) 500 mg PO BID JOHN PRN Reason: Protocol Stop: 01/04/17 08:59 Last Admin: 11/15/16 09:05 Dose: 500 mg Docusate Sodium (Colace) 100 mg PO BID PRN PRN Reason: Constipation Last Admin: 11/13/16 10:00 Dose: 100 mg Finasteride (Proscar) 5 mg PO DAILY JOHN PRN Reason: Protocol Stop: 01/04/17 08:59 Last Admin: 11/15/16 09:05 Dose: 5 mg Ibuprofen (Motrin) 600 mg PO BID JOHN Stop: 01/05/17 08:59 Last Admin: 11/15/16 09:05 Dose: 600 mg Ipratropium [place] (Atrovent Neb 0.5mg/2.5ml) 0.5 mg HHN Q6HRT PRN PRN Reason: sob Stop: 01/09/17 18:59 Loperamide HCl (Imodium) 2 mg PO PRN PRN PRN Reason: Diarrhea Stop: 01/03/17 21:57 Lorazepam (Ativan) 0.5 mg PO Q4HR PRN; Protocol PRN Reason: Anxiety Stop: 12/04/16 20:33 Last Admin: 11/15/16 09:12 Dose: 0.5 mg Magnesium Hydroxide (Milk Of Magnesia) 30 ml PO HS PRN PRN Reason: Constipation Multivitamins/Vitamin C (Theragran) 1 tab PO DAILY JOHN Stop: 01/04/17 08:59 Last Admin: 11/15/16 09:03 Dose: 1 tab Risperidone (Risperdal) 0.75 mg PO BID JOHN PRN Reason: Protocol Stop: 01/14/17 06:50 Last Admin: 11/15/16 09:12 Dose: 0.75 mg Tamsulosin HCl (Flomax) 0.4 mg PO DAILY JOHN Stop: 01/04/17 08:59 Last Admin: 11/15/16 09:06 Dose: 0.4 mg Zolpidem Tartrate (Ambien) 5 mg PO HSMR1 PRN PRN Reason: Insomnia Stop: 01/03/17 20:33 Last Admin: 11/12/16 20:59 Dose: 5 mg General: alert HEENT: NC/AT, PERRLA Lungs: CTAB Cardiovascular: RRR, Normal S1, Normal S2, without murmur Abdomen: soft, non-tender, non-distended, positive bowel sound Extremities: clear Neurological: no change, unable to follow command Internal Medicine Assmt/Plan - Assessment Assessment: HTN hx cva/tia schizophrenia hyponatremia - Plan Plan: cont on bp meds fall jprecaution nutritional support cpm dw rn Nutritional Asmnt/Malnutr-PDOC - Dietary Evaluation Malnutrition Findings (Please click <Entered> for more info): Nutritional Asmnt/Malnutrition Start: 11/06/16 17: 19 Text: Status: Complete Freq: Document 11/06/16 17:19 GSUN (Rec: 11/06/16 17:25 GSUN [email or web address]) Nutritional Asmnt/Malnutrition Patient General Information Nutritional Screening Moderate Risk Screening Diagnosis Unspecified psychosis, 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 Pt ambulates in wheelchair. Pt is talkative, however difficult to understand, unclear speech vs. dx mild to moderate mental retardation. Spoek to pt during meal time in rec room, pt was focused on eating, was only able to tell RD "I want some cake." Pt is edentulous, ENG[employer] denied difficulties chewing/swallowing. No significant wasting noted. Avg PO intake 100% of meals since adm, meeting nutritional needs. Current Diet Order/ Nutrition Support Low sodium Pertinent Medications Lipitor, Colace, MOM, Theragran Pertinent Labs 11/04: glucose 122H Nutritional Hx/Data Height 15.24 cm Height (Calculated Centimeters) 15.2 Current Weight (lbs) 72.575 kg Weight (Calculated Kilograms) 72.6 Weight (Calculated Grams) 58650.8 [place] Body Weight 178 Weight Status Approriate GI Symptoms Food Allergies No Skin Integrity/Comment: Earnest 20. Skin intact. Current %PO Good (75-100%) Estimated Nutritional Goals BEE in Kcals: Using Current wt Calories/Kcals/Kg CBW 160lb/72.7kg Kcals Calculated 1818-2181kcal (25-30kcal/kg) Protein: Using Current wt Protein Calculated 73g (1g/kg) Fluid: ml 1818-2181ml (1ml/kcal) Nutritional Problem 1. Problem Problem No nutritional problem at this time. Intervention/Recommendation Comments 1. Continue with current diet order. Avg PO intake is adequate. Expected Outcomes/Goals Expected Outcomes/Goals 1. PO intake continue to meet at least 75% of estimated nutritional needs.
[2016-11-16] MEDS: Atorvastatin Calcium 10 MG TAB PO SCH (08:43)
[2016-11-16] MEDS: Multivitamin Tab PO SCH (08:45)
--- NOTE | 2016-11-16 19:51 | Progress Notes ---
DATE: 11/16/2016 SUBJECTIVE: The patient was seen, chart reviewed, discussed with staff. The patient is banging on his Anum chair, confused, slurred, yelling, screaming, disorganized, nonsensical, responding to internal stimuli, agitated, trying to hit others, unpredictable. ASSESSMENT: The patient loud, combative, disorganized, poorly oriented. PLAN: We will continue to monitor. The patient remains quite acute, not safe for a lower level of care. Increase his Risperdal dosing today. Staff continues to monitor him quite closely as he is pretty impulsive, trying to hit. [facility]# [id number]
--- NOTE | 2016-11-16 21:23 | Internal Medicine Prog Note ---
Internal Medicine Subjective - Subjective Patient seen and examined:: with staff, chart reviewed Patient is:: awake, verbal, non-interactive, ambulating Per staff patient has:: no adverse event, noncompliant, confused, refusing care , refusing labs Internal Medicine Objective - Results Result Diagrams: 11/04/16 17:11/04/16 17: Recent Labs: Laboratory Last Values WBC 6.3 Th/cmm (4.8-10.8) 11/04/16: RBC 3.95 Mil/cmm (3.80-5.80) 11/04/16 17: Hgb 11.0 gm/dL (12.6-17.4) L 11/04/16: Hct 32.9 % (39.0-49.0) L 11/04/16: MCV 83.4 fl (80-99) 11/04/16: MCH 27.8 pg (27.0-31.0) 11/04/16: MCHC Differential 33.4 pg (28.0-36.0) 11/04/16: RDW 13.7 % (11.5-20.0) 11/04/16: Plt Count 304 Th/cmm (150-400) 11/04/16: MPV 6.8 fl 11/04/16: Neutrophils % 71.3 % (40.0-80.0) 11/04/16: Lymphocytes % 19.8 % (20.0-50.0) L 11/04/16: Monocytes % 7.3 % (2.0-10.0) 11/04/16: Eosinophils % 1.4 % (0.0-5.0) 11/04/16: Basophils % 0.2 % (0.0-2.0) 11/04/16: Sodium 132 mEq/L (136-145) L 11/04/16: Potassium 3.8 mEq/L (3.5-5.1) 11/04/16: Chloride 97 mEq/L (98-107) L 11/04/16: Carbon Dioxide 26.7 mEq/L (21.0-31.0) 11/04/16 17: Anion Gap 12.1 (7.0-16.0) 11/04/16 17: BUN 15 mg/dL (7-25) 11/04/16: Creatinine 0.7 mg/dL (0.7-1.3) 11/04/16 17: Est GFR ( Amer) TNP 11/04/16 17: Est GFR (Non-Af Amer) TNP 11/04/16: BUN/Creatinine Ratio 21.4 11/04/16: Glucose 122 mg/dL (70-105) H 11/04/16: Whole Bld Lactic Acid 2.70 mmol/L (0.60-1.99) H* 11/04/16: Calcium 9.9 mg/dL (8.6-10.3) 11/04/16: Total Bilirubin 0.3 mg/dL (0.3-1.0) 11/04/16: AST 18 U/L (13-39) 11/04/16: ALT 14 U/L (7-52) 11/04/16: Alkaline Phosphatase 58 U/L (34-104) 11/04/16: Troponin I 0.01 ng/mL (0.01-0.05) 11/04/16: Total Protein 7.5 gm/dL (6.0-8.3) 11/04/16: Albumin 3.9 gm/dL (4.2-5.5) L 11/04/16: Globulin 3.6 gm/dL 11/04/16: Albumin/Globulin Ratio 1.1 (1.0-1.8) 11/04/16: Triglycerides 53 mg/dL (<150) 11/04/16: Cholesterol 131 mg/dL (<200) 11/04/16: LDL Cholesterol Direct 66 mg/dL (75-193) L 11/04/16: HDL Cholesterol 50 mg/dL (23-92) 11/04/16: TSH 1.69 uIU/ml (0.34-5.60) 11/04/16: Urine Source RANDOM 11/04/16 20:00 Urine Color YELLOW 11/04/16 20:00 Urine Clarity CLEAR (CLEAR) 11/04/16 20:00 Urine pH 6.5 11/04/16 20:00 Ur Specific [place] 1.010 (1.005-1.030) 11/04/16 20:00 Urine Protein NEGATIVE mg/dL (NEGATIVE) 11/04/16 20:00 Urine Glucose (UA) NEGATIVE mg/dL (NEGATIVE) 11/04/16 20:00 Urine Ketones NEGATIVE mg/dL (NEGATIVE) 11/04/16 20:00 Urine Blood SMALL (NEGATIVE) H 11/04/16 20:00 Urine Nitrate NEGATIVE (NEGATIVE) 11/04/16 20:00 Urine Bilirubin NEGATIVE (NEGATIVE) 11/04/16 20:00 Urine Urobilinogen 0.2 E.U./dL (0.2 - 1.0) 11/04/16 20:00 Ur Leukocyte Esterase TRACE (NEGATIVE) H 11/04/16 20:00 Urine RBC 2-5 /hpf (0-5) H 11/04/16 20:00 Urine WBC 2-5 /hpf (0-5) H 11/04/16 20:00 Ur Epithelial Cells NONE SEEN /lpf (FEW) 11/04/16 20:00 Urine Bacteria NONE SEEN /hpf (NONE SEEN) 11/04/16 20:00 Salicylates < 25.0 mg/L (30.0-100.0) L 11/04/16 17:29 Urine Opiates Screen NEGATIVE (NEGATIVE) 11/04/16 20:00 Urine Methadone Screen NEGATIVE (NEGATIVE) 11/04/16 20:00 Acetaminophen < 10.0 ug/mL (10.0-30.0) L 11/04/16 17:29 Ur Barbiturates Screen NEGATIVE (NEGATIVE) 11/04/16 20:00 Valproic Acid 46.1 ug/mL (50.0-100.0) L 11/06/16 10:55 Ur Tricyclics Screen NEGATIVE (NEGATIVE) 11/04/16 20:00 Ur Phencyclidine Scrn NEGATIVE (NEGATIVE) 11/04/16 20:00 Amphetamines Screen NEGATIVE (NEGATIVE) 11/04/16 20:00 U Methamphetamines Scrn NEGATIVE (NEGATIVE) 11/04/16 20:00 U Benzodiazepines Scrn NEGATIVE (NEGATIVE) 11/04/16 20:00 U Cocaine Metab Screen NEGATIVE (NEGATIVE) 11/04/16 20:00 U Cannabinoids Screen NEGATIVE (NEGATIVE) 11/04/16 20:00 Ethyl Alcohol < 10 mg/dL (0-10) 11/04/16 17:29 RPR NONREACTIVE (NONREACTIVE) 11/04/16 17:29 - Physical Exam Vitals and I&O: Vital Signs Temp 97.9 F 11/16/16 20:53 Pulse 91 11/16/16 20:53 Resp 19 11/16/16 20:53 BP 125/64 11/16/16 20:53 Pulse Ox 99 11/16/16 20:53 Intake & Output 11/16/16 11/16/16 11/17/16 06:59 18:59 06:59 Intake Total 120 920 Balance 120 920 Intake: Oral 120 920 Other: # Voids 1 3 # Bowel Movements 0 Active Medications: Current Medications Acetaminophen (Tylenol) 650 mg PO Q4HR PRN PRN Reason: Mild Pain / Temp above 100 Stop: 01/03/17 20:33 Last Admin: 11/06/16 03:55 Dose: 650 mg Al Hydrox/Mg Hydrox/Simethicone (Maalox) 30 ml PO Q4HR PRN PRN Reason: GI DISTRESS Stop: 01/03/17 20:33 Albuterol Sulfate (Albuterol 2.5mg/3ml Neb Ud) 2.5 mg HHN Q4H PRN PRN Reason: sob Albuterol Sulfate (Albuterol 2.5mg/3ml Neb Ud) 2.5 mg HHN Q6HRT PRN PRN Reason: sob Stop: 01/04/17 09:59 Amlodipine Besylate (Norvasc) 5 mg PO DAILY JOHN Stop: 01/04/17 08:59 Last Admin: 11/16/16 08:42 Dose: 5 mg Aspirin (Ecotrin) 81 mg PO DAILY JOHN Stop: 01/04/17 08:59 Last Admin: 11/16/16 08:43 Dose: 81 mg Atorvastatin Calcium (Lipitor) 20 mg PO DAILY JOHN Stop: 01/04/17 09:59 Last Admin: 11/16/16 08:43 Dose: 20 mg Benazepril HCl (Lotensin) 20 mg PO DAILY JOHN Stop: 01/04/17 08:59 Last Admin: 11/16/16 08:43 Dose: 20 mg Budesonide (Pulmicort) 0.5 mg HHN BIDRT PRN PRN Reason: sob Stop: 01/04/17 10:59 Divalproex Sodium (Depakote Dr) 500 mg PO BID JOHN PRN Reason: Protocol Stop: 01/04/17 08:59 Last Admin: 11/16/16 17:09 Dose: 500 mg Docusate Sodium (Colace) 100 mg PO BID PRN PRN Reason: Constipation Last Admin: 11/13/16 10:00 Dose: 100 mg Finasteride (Proscar) 5 mg PO DAILY JOHN PRN Reason: Protocol Stop: 01/04/17 08:59 Last Admin: 11/16/16 08:45 Dose: 5 mg Ibuprofen (Motrin) 600 mg PO BID JOHN Stop: 01/05/17 08:59 Last Admin: 11/16/16 17:08 Dose: 600 mg Ipratropium [place] (Atrovent Neb 0.5mg/2.5ml) 0.5 mg HHN Q6HRT PRN PRN Reason: sob Stop: 01/09/17 18:59 Loperamide HCl (Imodium) 2 mg PO PRN PRN PRN Reason: Diarrhea Stop: 01/03/17 21:57 Lorazepam (Ativan) 0.5 mg PO Q4HR PRN; Protocol PRN Reason: Anxiety Stop: 12/04/16 20:33 Last Admin: 11/16/16 13:22 Dose: 0.5 mg Magnesium Hydroxide (Milk Of Magnesia) 30 ml PO HS PRN PRN Reason: Constipation Multivitamins/Vitamin C (Theragran) 1 tab PO DAILY JOHN Stop: 01/04/17 08:59 Last Admin: 11/16/16 08:45 Dose: 1 tab Risperidone (Risperdal) 1 mg PO BID JOHN PRN Reason: Protocol Stop: 01/15/17 07:14 Last Admin: 11/16/16 17:09 Dose: 1 mg Tamsulosin HCl (Flomax) 0.4 mg PO DAILY [facility] Stop: 01/04/17 08:59 Last Admin: 11/16/16 08:45 Dose: 0.4 mg Zolpidem Tartrate (Ambien) 5 mg PO HSMR1 PRN PRN Reason: Insomnia Stop: 01/03/17 20:33 Last Admin: 11/12/16 20:59 Dose: 5 mg General: alert, cachectic HEENT: NC/AT, PERRLA Lungs: CTAB Cardiovascular: RRR, Normal S1, Normal S2, without murmur Abdomen: soft, non-tender, non-distended, positive bowel sound Extremities: clear Neurological: no change, unable to follow command Internal Medicine Assmt/Plan - Assessment Assessment: HTN hx cva/tia schizophrenia hyponatremia - Plan Plan: cont on bp meds fall jprecaution nutritional support cpm dw rn Nutritional Asmnt/Malnutr-PDOC - Dietary Evaluation Malnutrition Findings (Please click <Entered> for more info): Nutritional Asmnt/Malnutrition Start: 11/06/16 17: 19 Text: Status: Complete Freq: Document 11/06/16 17:19 GSUN (Rec: 11/06/16 17:25 GSUN [email or web address]) Nutritional Asmnt/Malnutrition Patient General Information Nutritional Screening Moderate Risk Screening Diagnosis Unspecified psychosis, 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 Pt ambulates in wheelchair. Pt is talkative, however difficult to understand, unclear speech vs. dx mild to moderate mental retardation. 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 No significant wasting noted. Avg PO intake 100% of meals since adm, meeting nutritional needs. Current Diet Order/ Nutrition Support Low sodium Pertinent Medications Lipitor, Colace, MOM, Theragran Pertinent Labs 11/04: glucose 122H Nutritional Hx/Data Height 15.24 cm Height (Calculated Centimeters) 15.2 Current Weight (lbs) 72.575 kg Weight (Calculated Kilograms) 72.6 Weight (Calculated Grams) 92417.8 [place] Body Weight 178 Weight Status Approriate GI Symptoms Food Allergies No Skin Integrity/Comment: Earnest 20. Skin intact. Current %PO Good (75-100%) Estimated Nutritional Goals BEE in Kcals: Using Current wt Calories/Kcals/Kg CBW 160lb/72.7kg Kcals Calculated 1818-2181kcal (25-30kcal/kg) Protein: Using Current wt Protein Calculated 73g (1g/kg) Fluid: ml 1818-2181ml (1ml/kcal) Nutritional Problem 1. Problem Problem No nutritional problem at this time. Intervention/Recommendation Comments 1. Continue with current diet order. Avg PO intake is adequate. Expected Outcomes/Goals Expected Outcomes/Goals 1. PO intake continue to meet at least 75% of estimated nutritional needs.
[2016-11-17] MEDS: Multivitamin Tab PO SCH (10:06)
[2016-11-17] MEDS: Atorvastatin Calcium 10 MG TAB PO SCH (10:07)
--- NOTE | 2016-11-17 12:35 | Internal Medicine Prog Note ---
Internal Medicine Subjective - Subjective Service Date: 11/17/16 Patient is:: awake, verbal, non-interactive, ambulating Per staff patient has:: no adverse event, noncompliant, confused, refusing care , refusing labs Internal Medicine Objective - Results Result Diagrams: 11/04/16 17:11/04/16: Recent Labs: Laboratory Last Values WBC 6.3 Th/cmm (4.8-10.8) 11/04/16: RBC 3.95 Mil/cmm (3.80-5.80) 11/04/16 17: Hgb 11.0 gm/dL (12.6-17.4) L 11/04/16: Hct 32.9 % (39.0-49.0) L 11/04/16: MCV 83.4 fl (80-99) 11/04/16 17: MCH 27.8 pg (27.0-31.0) 11/04/16 MCHC Differential 33.4 pg (28.0-36.0) 11/04/16: RDW 13.7 % (11.5-20.0) 11/04/16: Plt Count 304 Th/cmm (150-400) 11/04/16: MPV 6.8 fl 11/04/16: Neutrophils % 71.3 % (40.0-80.0) 11/04/16: Lymphocytes % 19.8 % (20.0-50.0) L 11/04/16: Monocytes % 7.3 % (2.0-10.0) 11/04/16: Eosinophils % 1.4 % (0.0-5.0) 11/04/16: Basophils % 0.2 % (0.0-2.0) 11/04/16: Sodium 132 mEq/L (136-145) L 11/04/16: Potassium 3.8 mEq/L (3.5-5.1) 11/04/16: Chloride 97 mEq/L (98-107) L 11/04/16: Carbon Dioxide 26.7 mEq/L (21.0-31.0) 11/04/16: Anion Gap 12.1 (7.0-16.0) 11/04/16 17: BUN 15 mg/dL (7-25) 11/04/16: Creatinine 0.7 mg/dL (0.7-1.3) 11/04/16 17: Est GFR ( Amer) TNP 11/04/16 17: Est GFR (Non-Af Amer) TNP 11/04/16: BUN/Creatinine Ratio 21.4 11/04/16: Glucose 122 mg/dL (70-105) H 11/04/16 17: Whole Bld Lactic Acid 2.70 mmol/L (0.60-1.99) H* 11/04/16: Calcium 9.9 mg/dL (8.6-10.3) 11/04/16: Total Bilirubin 0.3 mg/dL (0.3-1.0) 11/04/16: AST 18 U/L (13-39) 11/04/16: ALT 14 U/L (7-52) 11/04/16: Alkaline Phosphatase 58 U/L (34-104) 11/04/16: Troponin I 0.01 ng/mL (0.01-0.05) 11/04/16: Total Protein 7.5 gm/dL (6.0-8.3) 11/04/16: Albumin 3.9 gm/dL (4.2-5.5) L 11/04/16: Globulin 3.6 gm/dL 11/04/16: Albumin/Globulin Ratio 1.1 (1.0-1.8) 11/04/16 17: Triglycerides 53 mg/dL (<150) 11/04/16: Cholesterol 131 mg/dL (<200) 11/04/16: LDL Cholesterol Direct 66 mg/dL (75-193) L 11/04/16: HDL Cholesterol 50 mg/dL (23-92) 11/04/16: TSH 1.69 uIU/ml (0.34-5.60) 11/04/16: Urine Source RANDOM 11/04/16 20:00 Urine Color YELLOW 11/04/16 20:00 Urine Clarity CLEAR (CLEAR) 11/04/16 20:00 Urine pH 6.5 11/04/16 20:00 Ur Specific [place] 1.010 (1.005-1.030) 11/04/16 20:00 Urine Protein NEGATIVE mg/dL (NEGATIVE) 11/04/16 20:00 Urine Glucose (UA) NEGATIVE mg/dL (NEGATIVE) 11/04/16 20:00 Urine Ketones NEGATIVE mg/dL (NEGATIVE) 11/04/16 20:00 Urine Blood SMALL (NEGATIVE) H 11/04/16 20:00 Urine Nitrate NEGATIVE (NEGATIVE) 11/04/16 20:00 Urine Bilirubin NEGATIVE (NEGATIVE) 11/04/16 20:00 Urine Urobilinogen 0.2 E.U./dL (0.2 - 1.0) 11/04/16 20:00 Ur Leukocyte Esterase TRACE (NEGATIVE) H 11/04/16 20:00 Urine RBC 2-5 /hpf (0-5) H 11/04/16 20:00 Urine WBC 2-5 /hpf (0-5) H 11/04/16 20:00 Ur Epithelial Cells NONE SEEN /lpf (FEW) 11/04/16 20:00 Urine Bacteria NONE SEEN /hpf (NONE SEEN) 11/04/16 20:00 Salicylates < 25.0 mg/L (30.0-100.0) L 11/04/16 17:29 Urine Opiates Screen NEGATIVE (NEGATIVE) 11/04/16 20:00 Urine Methadone Screen NEGATIVE (NEGATIVE) 11/04/16 20:00 Acetaminophen < 10.0 ug/mL (10.0-30.0) L 11/04/16 17:29 Ur Barbiturates Screen NEGATIVE (NEGATIVE) 11/04/16 20:00 Valproic Acid 46.1 ug/mL (50.0-100.0) L 11/06/16 10:55 Ur Tricyclics Screen NEGATIVE (NEGATIVE) 11/04/16 20:00 Ur Phencyclidine Scrn NEGATIVE (NEGATIVE) 11/04/16 20:00 Amphetamines Screen NEGATIVE (NEGATIVE) 11/04/16 20:00 U Methamphetamines Scrn NEGATIVE (NEGATIVE) 11/04/16 20:00 U Benzodiazepines Scrn NEGATIVE (NEGATIVE) 11/04/16 20:00 U Cocaine Metab Screen NEGATIVE (NEGATIVE) 11/04/16 20:00 U Cannabinoids Screen NEGATIVE (NEGATIVE) 11/04/16 20:00 Ethyl Alcohol < 10 mg/dL (0-10) 11/04/16 17:29 RPR NONREACTIVE (NONREACTIVE) 11/04/16 17:29 - Physical Exam Vitals and I&O: Vital Signs Temp 0 F 11/17/16 06:19 Pulse 65 11/17/16 07:39 Resp 14 11/17/16 07:39 BP 125/64 11/16/16 20:53 Pulse Ox 100 11/17/16 07:39 Intake & Output 11/16/16 11/17/16 11/17/16 18:59 06:59 18:59 Intake Total 920 Balance 920 Intake: Oral 920 Other: # Voids 3 # Bowel Movements 0 Active Medications: Current Medications Acetaminophen (Tylenol) 650 mg PO Q4HR PRN PRN Reason: Mild Pain / Temp above 100 Stop: 01/03/17 20:33 Last Admin: 11/06/16 03:55 Dose: 650 mg Al Hydrox/Mg Hydrox/Simethicone (Maalox) 30 ml PO Q4HR PRN PRN Reason: GI DISTRESS Stop: 01/03/17 20:33 Albuterol Sulfate (Albuterol 2.5mg/3ml Neb Ud) 2.5 mg HHN Q4H PRN PRN Reason: sob Albuterol Sulfate (Albuterol 2.5mg/3ml Neb Ud) 2.5 mg HHN Q6HRT PRN PRN Reason: sob Stop: 01/04/17 09:59 Amlodipine Besylate (Norvasc) 5 mg PO DAILY JOHN Stop: 01/04/17 08:59 Last Admin: 11/17/16 10:07 Dose: Not Given Aspirin (Ecotrin) 81 mg PO DAILY JOHN Stop: 01/04/17 08:59 Last Admin: 11/17/16 10:07 Dose: 81 mg Atorvastatin Calcium (Lipitor) 20 mg PO DAILY JOHN Stop: 01/04/17 09:59 Last Admin: 11/17/16 10:07 Dose: 20 mg Benazepril HCl (Lotensin) 20 mg PO DAILY [facility] Stop: 01/04/17 08:59 Last Admin: 11/17/16 10:08 Dose: Not Given Budesonide (Pulmicort) 0.5 mg HHN BIDRT PRN PRN Reason: sob Stop: 01/04/17 10:59 Divalproex Sodium (Depakote Dr) 500 mg PO BID JOHN PRN Reason: Protocol Stop: 01/04/17 08:59 Last Admin: 11/17/16 10:07 Dose: 500 mg Docusate Sodium (Colace) 100 mg PO BID PRN PRN Reason: Constipation Last Admin: 11/13/16 10:00 Dose: 100 mg Finasteride (Proscar) 5 mg PO DAILY JOHN PRN Reason: Protocol Stop: 01/04/17 08:59 Last Admin: 11/17/16 10:07 Dose: 5 mg Ibuprofen (Motrin) 600 mg PO BID JOHN Stop: 01/05/17 08:59 Last Admin: 11/17/16 10:08 Dose: Not Given Ipratropium [place] (Atrovent Neb 0.5mg/2.5ml) 0.5 mg HHN Q6HRT PRN PRN Reason: sob Stop: 01/09/17 18:59 Loperamide HCl (Imodium) 2 mg PO PRN PRN PRN Reason: Diarrhea Stop: 01/03/17 21:57 Lorazepam (Ativan) 0.5 mg PO Q4HR PRN; Protocol PRN Reason: Anxiety Stop: 12/04/16 20:33 Last Admin: 11/17/16 11:00 Dose: 0.5 mg Magnesium Hydroxide (Milk Of Magnesia) 30 ml PO HS PRN PRN Reason: Constipation Multivitamins/Vitamin C (Theragran) 1 tab PO DAILY JOHN Stop: 01/04/17 08:59 Last Admin: 11/17/16 10:06 Dose: 1 tab Risperidone (Risperdal) 1 mg PO BID JOHN PRN Reason: Protocol Stop: 01/15/17 07:14 Last Admin: 11/17/16 11:00 Dose: 1 mg Tamsulosin HCl (Flomax) 0.4 mg PO DAILY JOHN Stop: 01/04/17 08:59 Last Admin: 11/17/16 10:07 Dose: 0.4 mg Zolpidem Tartrate (Ambien) 5 mg PO HSMR1 PRN PRN Reason: Insomnia Stop: 01/03/17 20:33 Last Admin: 11/17/16 01:03 Dose: 5 mg General: alert, cachectic HEENT: NC/AT, PERRLA Lungs: CTAB Cardiovascular: RRR, Normal S1, Normal S2, without murmur Abdomen: soft, non-tender, non-distended, positive bowel sound Extremities: clear Neurological: no change, unable to follow command Internal Medicine Assmt/Plan - Assessment Assessment: HTN hx cva/tia schizophrenia hyponatremia - Plan Plan: fall precautions continue current tx Nutritional Asmnt/Malnutr-PDOC - Dietary Evaluation Malnutrition Findings (Please click <Entered> for more info): Nutritional Asmnt/Malnutrition Start: 11/06/16 17: 19 Text: Status: Complete Freq: Document 11/06/16 17:19 GSUN (Rec: 11/06/16 17:25 GSUN [email or web address]) Nutritional Asmnt/Malnutrition Patient General Information Nutritional Screening Moderate Risk Screening Diagnosis Unspecified psychosis, 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 Pt ambulates in wheelchair. Pt is talkative, however difficult to understand, unclear speech vs. dx mild to moderate mental retardation. 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 No significant wasting noted. Avg PO intake 100% of meals since adm, meeting nutritional needs. Current Diet Order/ Nutrition Support Low sodium Pertinent Medications Lipitor, Colace, MOM, Theragran Pertinent Labs 11/04: glucose 122H Nutritional Hx/Data Height 6 in Height (Calculated Centimeters) 15.2 Current Weight (lbs) 160 lb Weight (Calculated Kilograms) 72.6 Weight (Calculated Grams) 50423.8 [place] Body Weight 178 Weight Status Approriate GI Symptoms Food Allergies No Skin Integrity/Comment: Earnest 20. Skin intact. Current %PO Good (75-100%) Estimated Nutritional Goals BEE in Kcals: Using Current wt Calories/Kcals/Kg CBW 160lb/72.7kg Kcals Calculated 1818-2181kcal (25-30kcal/kg) Protein: Using Current wt Protein Calculated 73g (1g/kg) Fluid: ml 1818-2181ml (1ml/kcal) Nutritional Problem 1. Problem Problem No nutritional problem at this time. Intervention/Recommendation Comments 1. Continue with current diet order. Avg PO intake is adequate. Expected Outcomes/Goals Expected Outcomes/Goals 1. PO intake continue to meet at least 75% of estimated nutritional needs.
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
[2016-11-18] MEDS: Atorvastatin Calcium 10 MG TAB PO SCH (09:18)
[2016-11-18] MEDS: Multivitamin Tab PO SCH (09:19)
--- NOTE | 2016-11-18 13:05 | Internal Medicine Prog Note ---
Internal Medicine Subjective - Subjective Service Date: 11/18/16 Patient is:: awake, verbal, non-interactive, ambulating Per staff patient has:: no adverse event, noncompliant, confused, refusing care , refusing labs Internal Medicine Objective - Results Result Diagrams: 11/04/16 17:11/04/16: Recent Labs: Laboratory Last Values WBC 6.3 Th/cmm (4.8-10.8) 11/04/16: RBC 3.95 Mil/cmm (3.80-5.80) 11/04/16 17: Hgb 11.0 gm/dL (12.6-17.4) L 11/04/16: Hct 32.9 % (39.0-49.0) L 11/04/16: MCV 83.4 fl (80-99) 11/04/16 17: MCH 27.8 pg (27.0-31.0) 11/04/16 MCHC Differential 33.4 pg (28.0-36.0) 11/04/16: RDW 13.7 % (11.5-20.0) 11/04/16: Plt Count 304 Th/cmm (150-400) 11/04/16: MPV 6.8 fl 11/04/16: Neutrophils % 71.3 % (40.0-80.0) 11/04/16: Lymphocytes % 19.8 % (20.0-50.0) L 11/04/16: Monocytes % 7.3 % (2.0-10.0) 11/04/16: Eosinophils % 1.4 % (0.0-5.0) 11/04/16: Basophils % 0.2 % (0.0-2.0) 11/04/16: Sodium 132 mEq/L (136-145) L 11/04/16: Potassium 3.8 mEq/L (3.5-5.1) 11/04/16: Chloride 97 mEq/L (98-107) L 11/04/16: Carbon Dioxide 26.7 mEq/L (21.0-31.0) 11/04/16: Anion Gap 12.1 (7.0-16.0) 11/04/16 17: BUN 15 mg/dL (7-25) 11/04/16: Creatinine 0.7 mg/dL (0.7-1.3) 11/04/16 17: Est GFR ( Amer) TNP 11/04/16 17: Est GFR (Non-Af Amer) TNP 11/04/16: BUN/Creatinine Ratio 21.4 11/04/16: Glucose 122 mg/dL (70-105) H 11/04/16 17: Whole Bld Lactic Acid 2.70 mmol/L (0.60-1.99) H* 11/04/16: Calcium 9.9 mg/dL (8.6-10.3) 11/04/16: Total Bilirubin 0.3 mg/dL (0.3-1.0) 11/04/16: AST 18 U/L (13-39) 11/04/16: ALT 14 U/L (7-52) 11/04/16: Alkaline Phosphatase 58 U/L (34-104) 11/04/16: Troponin I 0.01 ng/mL (0.01-0.05) 11/04/16: Total Protein 7.5 gm/dL (6.0-8.3) 11/04/16: Albumin 3.9 gm/dL (4.2-5.5) L 11/04/16: Globulin 3.6 gm/dL 11/04/16: Albumin/Globulin Ratio 1.1 (1.0-1.8) 11/04/16 17: Triglycerides 53 mg/dL (<150) 11/04/16: Cholesterol 131 mg/dL (<200) 11/04/16: LDL Cholesterol Direct 66 mg/dL (75-193) L 11/04/16: HDL Cholesterol 50 mg/dL (23-92) 11/04/16: TSH 1.69 uIU/ml (0.34-5.60) 11/04/16: Urine Source RANDOM 11/04/16 20:00 Urine Color YELLOW 11/04/16 20:00 Urine Clarity CLEAR (CLEAR) 11/04/16 20:00 Urine pH 6.5 11/04/16 20:00 Ur Specific [place] 1.010 (1.005-1.030) 11/04/16 20:00 Urine Protein NEGATIVE mg/dL (NEGATIVE) 11/04/16 20:00 Urine Glucose (UA) NEGATIVE mg/dL (NEGATIVE) 11/04/16 20:00 Urine Ketones NEGATIVE mg/dL (NEGATIVE) 11/04/16 20:00 Urine Blood SMALL (NEGATIVE) H 11/04/16 20:00 Urine Nitrate NEGATIVE (NEGATIVE) 11/04/16 20:00 Urine Bilirubin NEGATIVE (NEGATIVE) 11/04/16 20:00 Urine Urobilinogen 0.2 E.U./dL (0.2 - 1.0) 11/04/16 20:00 Ur Leukocyte Esterase TRACE (NEGATIVE) H 11/04/16 20:00 Urine RBC 2-5 /hpf (0-5) H 11/04/16 20:00 Urine WBC 2-5 /hpf (0-5) H 11/04/16 20:00 Ur Epithelial Cells NONE SEEN /lpf (FEW) 11/04/16 20:00 Urine Bacteria NONE SEEN /hpf (NONE SEEN) 11/04/16 20:00 Salicylates < 25.0 mg/L (30.0-100.0) L 11/04/16 17:29 Urine Opiates Screen NEGATIVE (NEGATIVE) 11/04/16 20:00 Urine Methadone Screen NEGATIVE (NEGATIVE) 11/04/16 20:00 Acetaminophen < 10.0 ug/mL (10.0-30.0) L 11/04/16 17:29 Ur Barbiturates Screen NEGATIVE (NEGATIVE) 11/04/16 20:00 Valproic Acid 46.1 ug/mL (50.0-100.0) L 11/06/16 10:55 Ur Tricyclics Screen NEGATIVE (NEGATIVE) 11/04/16 20:00 Ur Phencyclidine Scrn NEGATIVE (NEGATIVE) 11/04/16 20:00 Amphetamines Screen NEGATIVE (NEGATIVE) 11/04/16 20:00 U Methamphetamines Scrn NEGATIVE (NEGATIVE) 11/04/16 20:00 U Benzodiazepines Scrn NEGATIVE (NEGATIVE) 11/04/16 20:00 U Cocaine Metab Screen NEGATIVE (NEGATIVE) 11/04/16 20:00 U Cannabinoids Screen NEGATIVE (NEGATIVE) 11/04/16 20:00 Ethyl Alcohol < 10 mg/dL (0-10) 11/04/16 17:29 RPR NONREACTIVE (NONREACTIVE) 11/04/16 17:29 - Physical Exam Vitals and I&O: Vital Signs Temp 98.2 F 11/18/16 06:53 Pulse 85 11/18/16 09:02 Resp 19 11/18/16 06:53 BP 112/70 11/18/16 09:02 Pulse Ox 98 11/18/16 06:53 Intake & Output 11/17/16 11/18/16 11/18/16 18:59 06:59 18:59 Intake Total 480 Balance 480 Intake: Oral 480 Other: # Voids 1 Active Medications: Current Medications Acetaminophen (Tylenol) 650 mg PO Q4HR PRN PRN Reason: Mild Pain / Temp above 100 Stop: 01/03/17 20:33 Last Admin: 11/06/16 03:55 Dose: 650 mg Al Hydrox/Mg Hydrox/Simethicone (Maalox) 30 ml PO Q4HR PRN PRN Reason: GI DISTRESS Stop: 01/03/17 20:33 Albuterol Sulfate (Albuterol 2.5mg/3ml Neb Ud) 2.5 mg HHN Q4H PRN PRN Reason: sob Albuterol Sulfate (Albuterol 2.5mg/3ml Neb Ud) 2.5 mg HHN Q6HRT PRN PRN Reason: sob Stop: 01/04/17 09:59 Amlodipine Besylate (Norvasc) 5 mg PO DAILY JOHN Stop: 01/04/17 08:59 Last Admin: 11/18/16 09:02 Dose: Not Given Aspirin (Ecotrin) 81 mg PO DAILY JOHN Stop: 01/04/17 08:59 Last Admin: 11/18/16 09:17 Dose: 81 mg Atorvastatin Calcium (Lipitor) 20 mg PO DAILY JOHN Stop: 01/04/17 09:59 Last Admin: 11/18/16 09:18 Dose: 20 mg Benazepril HCl (Lotensin) 20 mg PO DAILY JOHN Stop: 01/04/17 08:59 Last Admin: 11/18/16 09:02 Dose: Not Given Budesonide (Pulmicort) 0.5 mg HHN BIDRT PRN PRN Reason: sob Stop: 01/04/17 10:59 Divalproex Sodium (Depakote Dr) 500 mg PO BID JOHN PRN Reason: Protocol Stop: 01/04/17 08:59 Last Admin: 11/18/16 09:18 Dose: 500 mg Docusate Sodium (Colace) 100 mg PO BID PRN PRN Reason: Constipation Last Admin: 11/13/16 10:00 Dose: 100 mg Finasteride (Proscar) 5 mg PO DAILY JOHN PRN Reason: Protocol Stop: 01/04/17 08:59 Last Admin: 11/18/16 09:18 Dose: 5 mg Ibuprofen (Motrin) 600 mg PO BID JOHN Stop: 01/05/17 08:59 Last Admin: 11/18/16 09:18 Dose: 600 mg Ipratropium [place] (Atrovent Neb 0.5mg/2.5ml) 0.5 mg HHN Q6HRT PRN PRN Reason: sob Stop: 01/09/17 18:59 Loperamide HCl (Imodium) 2 mg PO PRN PRN PRN Reason: Diarrhea Stop: 01/03/17 21:57 Lorazepam (Ativan) 0.5 mg PO Q4HR PRN; Protocol PRN Reason: Anxiety Stop: 12/04/16 20:33 Last Admin: 11/17/16 11:00 Dose: 0.5 mg Magnesium Hydroxide (Milk Of Magnesia) 30 ml PO HS PRN PRN Reason: Constipation Multivitamins/Vitamin C (Theragran) 1 tab PO DAILY JOHN Stop: 01/04/17 08:59 Last Admin: 11/18/16 09:19 Dose: 1 tab Risperidone (Risperdal) 1 mg PO BID JOHN PRN Reason: Protocol Stop: 01/15/17 07:14 Last Admin: 11/18/16 09:19 Dose: 1 mg Tamsulosin HCl (Flomax) 0.4 mg PO DAILY JOHN Stop: 01/04/17 08:59 Last Admin: 11/18/16 09:18 Dose: 0.4 mg Zolpidem Tartrate (Ambien) 5 mg PO HSMR1 PRN PRN Reason: Insomnia Stop: 01/03/17 20:33 Last Admin: 11/17/16 01:03 Dose: 5 mg General: alert, cachectic HEENT: NC/AT, PERRLA Lungs: CTAB Cardiovascular: RRR, Normal S1, Normal S2, without murmur Abdomen: soft, non-tender, non-distended, positive bowel sound Extremities: clear Neurological: no change, unable to follow command Internal Medicine Assmt/Plan - Assessment Assessment: HTN hx cva/tia schizophrenia hyponatremia - Plan Plan: fall precautions continue current tx Nutritional Asmnt/Malnutr-PDOC - Dietary Evaluation Malnutrition Findings (Please click <Entered> for more info): Nutritional Asmnt/Malnutrition Start: 11/06/16 17: 19 Text: Status: Complete Freq: Document 11/06/16 17:19 GSUN (Rec: 11/06/16 17:25 [email or web address] [email or web address]) Nutritional Asmnt/Malnutrition Patient General Information Nutritional Screening Moderate Risk Screening Diagnosis Unspecified psychosis, 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 Pt ambulates in wheelchair. Pt is talkative, however difficult to understand, unclear speech vs. dx mild to moderate mental retardation. 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 No significant wasting noted. Avg PO intake 100% of meals since adm, meeting nutritional needs. Current Diet Order/ Nutrition Support Low sodium Pertinent Medications Lipitor, Colace, MOM, Theragran Pertinent Labs 11/04: glucose 122H Nutritional Hx/Data Height 6 in Height (Calculated Centimeters) 15.2 Current Weight (lbs) 160 lb Weight (Calculated Kilograms) 72.6 Weight (Calculated Grams) 34633.8 [place] Body Weight 178 Weight Status Approriate GI Symptoms Food Allergies No Skin Integrity/Comment: Earnest 20. Skin intact. Current %PO Good (75-100%) Estimated Nutritional Goals BEE in Kcals: Using Current wt Calories/Kcals/Kg CBW 160lb/72.7kg Kcals Calculated 1818-2181kcal (25-30kcal/kg) Protein: Using Current wt Protein Calculated 73g (1g/kg) Fluid: ml 1818-2181ml (1ml/kcal) Nutritional Problem 1. Problem Problem No nutritional problem at this time. Intervention/Recommendation Comments 1. Continue with current diet order. Avg PO intake is adequate. Expected Outcomes/Goals Expected Outcomes/Goals 1. PO intake continue to meet at least 75% of estimated nutritional needs.
--- NOTE | 2016-11-18 23:21 | Progress Notes ---
DATE: 11/18/2016 Case was discussed with staff of the patient, reviewed records. The patient continues to be unpredictable, impulsive, needing redirection. He was started on Risperdal. He is sleeping better, eating better, compliant with the medication with no side effects, no sedation, no nausea, no extrapyramidal symptoms. We will continue to work with the patient in group therapy, milieu therapy, and adjust medication as needed. JOB# [id number]
[2016-11-19] MEDS: Multivitamin Tab PO SCH (09:56)
[2016-11-19] MEDS: Atorvastatin Calcium 10 MG TAB PO SCH (09:56)
--- NOTE | 2016-11-19 15:26 | Internal Medicine Prog Note ---
Internal Medicine Subjective - Subjective Service Date: 11/19/16 Patient is:: awake, verbal, non-interactive, ambulating Per staff patient has:: no adverse event, noncompliant, confused, refusing care , refusing labs Internal Medicine Objective - Results Result Diagrams: 11/04/16 17:11/04/16: Recent Labs: Laboratory Last Values WBC 6.3 Th/cmm (4.8-10.8) 11/04/16: RBC 3.95 Mil/cmm (3.80-5.80) 11/04/16 17: Hgb 11.0 gm/dL (12.6-17.4) L 11/04/16: Hct 32.9 % (39.0-49.0) L 11/04/16: MCV 83.4 fl (80-99) 11/04/16: MCH 27.8 pg (27.0-31.0) 11/04/16 MCHC Differential 33.4 pg (28.0-36.0) 11/04/16: RDW 13.7 % (11.5-20.0) 11/04/16: Plt Count 304 Th/cmm (150-400) 11/04/16: MPV 6.8 fl 11/04/16: Neutrophils % 71.3 % (40.0-80.0) 11/04/16: Lymphocytes % 19.8 % (20.0-50.0) L 11/04/16: Monocytes % 7.3 % (2.0-10.0) 11/04/16: Eosinophils % 1.4 % (0.0-5.0) 11/04/16: Basophils % 0.2 % (0.0-2.0) 11/04/16: Sodium 132 mEq/L (136-145) L 11/04/16: Potassium 3.8 mEq/L (3.5-5.1) 11/04/16: Chloride 97 mEq/L (98-107) L 11/04/16: Carbon Dioxide 26.7 mEq/L (21.0-31.0) 11/04/16: Anion Gap 12.1 (7.0-16.0) 11/04/16 17: BUN 15 mg/dL (7-25) 11/04/16: Creatinine 0.7 mg/dL (0.7-1.3) 11/04/16 17: Est GFR ( Amer) TNP 11/04/16 17: Est GFR (Non-Af Amer) TNP 11/04/16: BUN/Creatinine Ratio 21.4 11/04/16: Glucose 122 mg/dL (70-105) H 11/04/16 17: Whole Bld Lactic Acid 2.70 mmol/L (0.60-1.99) H* 11/04/16: Calcium 9.9 mg/dL (8.6-10.3) 11/04/16: Total Bilirubin 0.3 mg/dL (0.3-1.0) 11/04/16: AST 18 U/L (13-39) 11/04/16: ALT 14 U/L (7-52) 11/04/16: Alkaline Phosphatase 58 U/L (34-104) 11/04/16: Troponin I 0.01 ng/mL (0.01-0.05) 11/04/16: Total Protein 7.5 gm/dL (6.0-8.3) 11/04/16: Albumin 3.9 gm/dL (4.2-5.5) L 11/04/16: Globulin 3.6 gm/dL 11/04/16: Albumin/Globulin Ratio 1.1 (1.0-1.8) 11/04/16 17: Triglycerides 53 mg/dL (<150) 11/04/16: Cholesterol 131 mg/dL (<200) 11/04/16: LDL Cholesterol Direct 66 mg/dL (75-193) L 11/04/16: HDL Cholesterol 50 mg/dL (23-92) 11/04/16: TSH 1.69 uIU/ml (0.34-5.60) 11/04/16: Urine Source RANDOM 11/04/16 20:00 Urine Color YELLOW 11/04/16 20:00 Urine Clarity CLEAR (CLEAR) 11/04/16 20:00 Urine pH 6.5 11/04/16 20:00 Ur Specific [place] 1.010 (1.005-1.030) 11/04/16 20:00 Urine Protein NEGATIVE mg/dL (NEGATIVE) 11/04/16 20:00 Urine Glucose (UA) NEGATIVE mg/dL (NEGATIVE) 11/04/16 20:00 Urine Ketones NEGATIVE mg/dL (NEGATIVE) 11/04/16 20:00 Urine Blood SMALL (NEGATIVE) H 11/04/16 20:00 Urine Nitrate NEGATIVE (NEGATIVE) 11/04/16 20:00 Urine Bilirubin NEGATIVE (NEGATIVE) 11/04/16 20:00 Urine Urobilinogen 0.2 E.U./dL (0.2 - 1.0) 11/04/16 20:00 Ur Leukocyte Esterase TRACE (NEGATIVE) H 11/04/16 20:00 Urine RBC 2-5 /hpf (0-5) H 11/04/16 20:00 Urine WBC 2-5 /hpf (0-5) H 11/04/16 20:00 Ur Epithelial Cells NONE SEEN /lpf (FEW) 11/04/16 20:00 Urine Bacteria NONE SEEN /hpf (NONE SEEN) 11/04/16 20:00 Salicylates < 25.0 mg/L (30.0-100.0) L 11/04/16 17:29 Urine Opiates Screen NEGATIVE (NEGATIVE) 11/04/16 20:00 Urine Methadone Screen NEGATIVE (NEGATIVE) 11/04/16 20:00 Acetaminophen < 10.0 ug/mL (10.0-30.0) L 11/04/16 17:29 Ur Barbiturates Screen NEGATIVE (NEGATIVE) 11/04/16 20:00 Valproic Acid 46.1 ug/mL (50.0-100.0) L 11/06/16 10:55 Ur Tricyclics Screen NEGATIVE (NEGATIVE) 11/04/16 20:00 Ur Phencyclidine Scrn NEGATIVE (NEGATIVE) 11/04/16 20:00 Amphetamines Screen NEGATIVE (NEGATIVE) 11/04/16 20:00 U Methamphetamines Scrn NEGATIVE (NEGATIVE) 11/04/16 20:00 U Benzodiazepines Scrn NEGATIVE (NEGATIVE) 11/04/16 20:00 U Cocaine Metab Screen NEGATIVE (NEGATIVE) 11/04/16 20:00 U Cannabinoids Screen NEGATIVE (NEGATIVE) 11/04/16 20:00 Ethyl Alcohol < 10 mg/dL (0-10) 11/04/16 17:29 RPR NONREACTIVE (NONREACTIVE) 11/04/16 17:29 - Physical Exam Vitals and I&O: Vital Signs Temp 98.3 F 11/19/16 05:44 Pulse 72 11/19/16 14:58 Resp 19 11/19/16 14:58 BP 105/48 11/19/16 09:58 Pulse Ox 97 11/19/16 05:44 Intake & Output 11/18/16 11/19/16 11/19/16 18:59 06:59 18:59 Intake Total 1800 170 Balance 1800 170 Intake: Oral 1800 170 Other: # Voids 5 1 # Bowel Movements 0 1 Stool Characteristics Soft Formed Active Medications: Current Medications Acetaminophen (Tylenol) 650 mg PO Q4HR PRN PRN Reason: Mild Pain / Temp above 100 Stop: 01/03/17 20:33 Last Admin: 11/06/16 03:55 Dose: 650 mg Al Hydrox/Mg Hydrox/Simethicone (Maalox) 30 ml PO Q4HR PRN PRN Reason: GI DISTRESS Stop: 01/03/17 20:33 Albuterol Sulfate (Albuterol 2.5mg/3ml Neb Ud) 2.5 mg HHN Q4H PRN PRN Reason: sob Albuterol Sulfate (Albuterol 2.5mg/3ml Neb Ud) 2.5 mg HHN Q6HRT PRN PRN Reason: sob Stop: 01/04/17 09:59 Amlodipine Besylate (Norvasc) 5 mg PO DAILY [facility] Stop: 01/04/17 08:59 Last Admin: 11/19/16 09:56 Dose: Not Given Aspirin (Ecotrin) 81 mg PO DAILY JOHN Stop: 01/04/17 08:59 Last Admin: 11/19/16 09:57 Dose: 81 mg Atorvastatin Calcium (Lipitor) 20 mg PO DAILY JOHN Stop: 01/04/17 09:59 Last Admin: 11/19/16 09:56 Dose: 20 mg Benazepril HCl (Lotensin) 20 mg PO DAILY [facility] Stop: 01/04/17 08:59 Last Admin: 11/19/16 09:58 Dose: Not Given Budesonide (Pulmicort) 0.5 mg HHN BIDRT PRN PRN Reason: sob Stop: 01/04/17 10:59 Divalproex Sodium (Depakote Dr) 500 mg PO BID JOHN PRN Reason: Protocol Stop: 01/04/17 08:59 Last Admin: 11/19/16 09:56 Dose: 500 mg Docusate Sodium (Colace) 100 mg PO BID PRN PRN Reason: Constipation Last Admin: 11/13/16 10:00 Dose: 100 mg Finasteride (Proscar) 5 mg PO DAILY JOHN PRN Reason: Protocol Stop: 01/04/17 08:59 Last Admin: 11/19/16 09:58 Dose: 5 mg Ibuprofen (Motrin) 600 mg PO BID JOHN Stop: 01/05/17 08:59 Last Admin: 11/19/16 09:56 Dose: 600 mg Ipratropium [place] (Atrovent Neb 0.5mg/2.5ml) 0.5 mg HHN Q6HRT PRN PRN Reason: sob Stop: 01/09/17 18:59 Loperamide HCl (Imodium) 2 mg PO PRN PRN PRN Reason: Diarrhea Stop: 01/03/17 21:57 Lorazepam (Ativan) 0.5 mg PO Q4HR PRN; Protocol PRN Reason: Anxiety Stop: 12/04/16 20:33 Last Admin: 11/18/16 20:39 Dose: 0.5 mg Magnesium Hydroxide (Milk Of Magnesia) 30 ml PO HS PRN PRN Reason: Constipation Multivitamins/Vitamin C (Theragran) 1 tab PO DAILY [facility] Stop: 01/04/17 08:59 Last Admin: 11/19/16 09:56 Dose: 1 tab Risperidone (Risperdal) 1.5 mg PO BID JOHN PRN Reason: Protocol Stop: 01/15/17 08:59 Last Admin: 11/19/16 12:43 Dose: 1.5 mg Tamsulosin HCl (Flomax) 0.4 mg PO DAILY [facility] Stop: 01/04/17 08:59 Last Admin: 11/19/16 09:56 Dose: 0.4 mg Zolpidem Tartrate (Ambien) 5 mg PO HSMR1 PRN PRN Reason: Insomnia Stop: 01/03/17 20:33 Last Admin: 11/18/16 20:39 Dose: 5 mg General: alert, cachectic HEENT: NC/AT, PERRLA Lungs: CTAB Cardiovascular: RRR, Normal S1, Normal S2, without murmur Abdomen: soft, non-tender, non-distended, positive bowel sound Extremities: clear Neurological: no change, unable to follow command Internal Medicine Assmt/Plan - Assessment Assessment: HTN hx cva/tia schizophrenia hyponatremia - Plan Plan: fall precautions continue current tx Nutritional Asmnt/Malnutr-PDOC - Dietary Evaluation Malnutrition Findings (Please click <Entered> for more info): Nutritional Asmnt/Malnutrition Start: 11/06/16 17: 19 Text: Status: Complete Freq: Document 11/06/16 17:19 GSUN (Rec: 11/06/16 17:25 GSUN [email or web address]) Nutritional Asmnt/Malnutrition Patient General Information Nutritional Screening Moderate Risk Screening Diagnosis Unspecified psychosis, 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 Pt ambulates in wheelchair. Pt is talkative, however difficult to understand, unclear speech vs. dx mild to moderate mental retardation. 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 No significant wasting noted. Avg PO intake 100% of meals since adm, meeting nutritional needs. Current Diet Order/ Nutrition Support Low sodium Pertinent Medications Lipitor, Colace, MOM, Theragran Pertinent Labs 11/04: glucose 122H Nutritional Hx/Data Height 6 in Height (Calculated Centimeters) 15.2 Current Weight (lbs) 160 lb Weight (Calculated Kilograms) 72.6 Weight (Calculated Grams) 64716.8 [place] Body Weight 178 Weight Status Approriate GI Symptoms Food Allergies No Skin Integrity/Comment: Earnest 20. Skin intact. Current %PO Good (75-100%) Estimated Nutritional Goals BEE in Kcals: Using Current wt Calories/Kcals/Kg CBW 160lb/72.7kg Kcals Calculated 1818-2181kcal (25-30kcal/kg) Protein: Using Current wt Protein Calculated 73g (1g/kg) Fluid: ml 1818-2181ml (1ml/kcal) Nutritional Problem 1. Problem Problem No nutritional problem at this time. Intervention/Recommendation Comments 1. Continue with current diet order. Avg PO intake is adequate. Expected Outcomes/Goals Expected Outcomes/Goals 1. PO intake continue to meet at least 75% of estimated nutritional needs.
--- NOTE | 2016-11-19 21:16 | Progress Notes ---
DATE: 11/19/2016 SUBJECTIVE: Chart reviewed and the patient interviewed. Also discussed the patient's condition with the staff and reviewed records and labs. The patient continued to be extremely irritable mood and is still easily agitated. The patient also is still restless and he is intrusive. The patient is demanding and he comes to the nurses' station demanding things that need to be done right away and in a confused way and staff tries to help him and redirect him, but he still has difficulty following directions. During interview, the patient is disheveled and confused and is agitated. ASSESSMENT: The patient is still psychotic. TREATMENT PLAN: Continue to monitor his behavior and his condition closely. Also, we will increase Risperdal to 1.5 mg twice a day and we will continue to follow up closely. JOB# [id number]
[2016-11-20] MEDS: Multivitamin Tab PO SCH (08:32)
[2016-11-20] MEDS: Atorvastatin Calcium 10 MG TAB PO SCH (08:32)
--- NOTE | 2016-11-20 10:47 | Internal Medicine Prog Note ---
Internal Medicine Subjective - Subjective Service Date: 11/20/16 Patient is:: awake, verbal, non-interactive, ambulating Per staff patient has:: no adverse event, noncompliant, confused, refusing care , refusing labs Internal Medicine Objective - Results Result Diagrams: 11/04/16 17:11/04/16: Recent Labs: Laboratory Last Values WBC 6.3 Th/cmm (4.8-10.8) 11/04/16: RBC 3.95 Mil/cmm (3.80-5.80) 11/04/16 17: Hgb 11.0 gm/dL (12.6-17.4) L 11/04/16: Hct 32.9 % (39.0-49.0) L 11/04/16: MCV 83.4 fl (80-99) 11/04/16: MCH 27.8 pg (27.0-31.0) 11/04/16 MCHC Differential 33.4 pg (28.0-36.0) 11/04/16: RDW 13.7 % (11.5-20.0) 11/04/16: Plt Count 304 Th/cmm (150-400) 11/04/16: MPV 6.8 fl 11/04/16: Neutrophils % 71.3 % (40.0-80.0) 11/04/16: Lymphocytes % 19.8 % (20.0-50.0) L 11/04/16: Monocytes % 7.3 % (2.0-10.0) 11/04/16: Eosinophils % 1.4 % (0.0-5.0) 11/04/16: Basophils % 0.2 % (0.0-2.0) 11/04/16: Sodium 132 mEq/L (136-145) L 11/04/16: Potassium 3.8 mEq/L (3.5-5.1) 11/04/16: Chloride 97 mEq/L (98-107) L 11/04/16: Carbon Dioxide 26.7 mEq/L (21.0-31.0) 11/04/16: Anion Gap 12.1 (7.0-16.0) 11/04/16 17: BUN 15 mg/dL (7-25) 11/04/16: Creatinine 0.7 mg/dL (0.7-1.3) 11/04/16 17: Est GFR ( Amer) TNP 11/04/16 17: Est GFR (Non-Af Amer) TNP 11/04/16: BUN/Creatinine Ratio 21.4 11/04/16: Glucose 122 mg/dL (70-105) H 11/04/16 17: Whole Bld Lactic Acid 2.70 mmol/L (0.60-1.99) H* 11/04/16: Calcium 9.9 mg/dL (8.6-10.3) 11/04/16: Total Bilirubin 0.3 mg/dL (0.3-1.0) 11/04/16: AST 18 U/L (13-39) 11/04/16: ALT 14 U/L (7-52) 11/04/16: Alkaline Phosphatase 58 U/L (34-104) 11/04/16: Troponin I 0.01 ng/mL (0.01-0.05) 11/04/16: Total Protein 7.5 gm/dL (6.0-8.3) 11/04/16: Albumin 3.9 gm/dL (4.2-5.5) L 11/04/16: Globulin 3.6 gm/dL 11/04/16: Albumin/Globulin Ratio 1.1 (1.0-1.8) 11/04/16 17: Triglycerides 53 mg/dL (<150) 11/04/16: Cholesterol 131 mg/dL (<200) 11/04/16: LDL Cholesterol Direct 66 mg/dL (75-193) L 11/04/16: HDL Cholesterol 50 mg/dL (23-92) 11/04/16: TSH 1.69 uIU/ml (0.34-5.60) 11/04/16: Urine Source RANDOM 11/04/16 20:00 Urine Color YELLOW 11/04/16 20:00 Urine Clarity CLEAR (CLEAR) 11/04/16 20:00 Urine pH 6.5 11/04/16 20:00 Ur Specific [place] 1.010 (1.005-1.030) 11/04/16 20:00 Urine Protein NEGATIVE mg/dL (NEGATIVE) 11/04/16 20:00 Urine Glucose (UA) NEGATIVE mg/dL (NEGATIVE) 11/04/16 20:00 Urine Ketones NEGATIVE mg/dL (NEGATIVE) 11/04/16 20:00 Urine Blood SMALL (NEGATIVE) H 11/04/16 20:00 Urine Nitrate NEGATIVE (NEGATIVE) 11/04/16 20:00 Urine Bilirubin NEGATIVE (NEGATIVE) 11/04/16 20:00 Urine Urobilinogen 0.2 E.U./dL (0.2 - 1.0) 11/04/16 20:00 Ur Leukocyte Esterase TRACE (NEGATIVE) H 11/04/16 20:00 Urine RBC 2-5 /hpf (0-5) H 11/04/16 20:00 Urine WBC 2-5 /hpf (0-5) H 11/04/16 20:00 Ur Epithelial Cells NONE SEEN /lpf (FEW) 11/04/16 20:00 Urine Bacteria NONE SEEN /hpf (NONE SEEN) 11/04/16 20:00 Salicylates < 25.0 mg/L (30.0-100.0) L 11/04/16 17:29 Urine Opiates Screen NEGATIVE (NEGATIVE) 11/04/16 20:00 Urine Methadone Screen NEGATIVE (NEGATIVE) 11/04/16 20:00 Acetaminophen < 10.0 ug/mL (10.0-30.0) L 11/04/16 17:29 Ur Barbiturates Screen NEGATIVE (NEGATIVE) 11/04/16 20:00 Valproic Acid 46.1 ug/mL (50.0-100.0) L 11/06/16 10:55 Ur Tricyclics Screen NEGATIVE (NEGATIVE) 11/04/16 20:00 Ur Phencyclidine Scrn NEGATIVE (NEGATIVE) 11/04/16 20:00 Amphetamines Screen NEGATIVE (NEGATIVE) 11/04/16 20:00 U Methamphetamines Scrn NEGATIVE (NEGATIVE) 11/04/16 20:00 U Benzodiazepines Scrn NEGATIVE (NEGATIVE) 11/04/16 20:00 U Cocaine Metab Screen NEGATIVE (NEGATIVE) 11/04/16 20:00 U Cannabinoids Screen NEGATIVE (NEGATIVE) 11/04/16 20:00 Ethyl Alcohol < 10 mg/dL (0-10) 11/04/16 17:29 RPR NONREACTIVE (NONREACTIVE) 11/04/16 17:29 - Physical Exam Vitals and I&O: Vital Signs Temp 97.1 F 11/20/16 06:35 Pulse 72 11/20/16 08:33 Resp 16 11/20/16 07:22 BP 128/64 11/20/16 08:33 Pulse Ox 98 11/20/16 07:22 Intake & Output 11/19/16 11/20/16 11/20/16 18:59 06:59 18:59 Intake Total 800 120 Balance 800 120 Intake: Oral 800 120 Other: # Voids 3 3 # Bowel Movements 1 Stool Characteristics Soft Formed Active Medications: Current Medications Acetaminophen (Tylenol) 650 mg PO Q4HR PRN PRN Reason: Mild Pain / Temp above 100 Stop: 01/03/17 20:33 Last Admin: 11/06/16 03:55 Dose: 650 mg Al Hydrox/Mg Hydrox/Simethicone (Maalox) 30 ml PO Q4HR PRN PRN Reason: GI DISTRESS Stop: 01/03/17 20:33 Albuterol Sulfate (Albuterol 2.5mg/3ml Neb Ud) 2.5 mg HHN Q4H PRN PRN Reason: sob Albuterol Sulfate (Albuterol 2.5mg/3ml Neb Ud) 2.5 mg HHN Q6HRT PRN PRN Reason: sob Stop: 01/04/17 09:59 Amlodipine Besylate (Norvasc) 5 mg PO DAILY JOHN Stop: 01/04/17 08:59 Last Admin: 11/20/16 08:33 Dose: 5 mg Aspirin (Ecotrin) 81 mg PO DAILY JOHN Stop: 01/04/17 08:59 Last Admin: 11/20/16 08:33 Dose: 81 mg Atorvastatin Calcium (Lipitor) 20 mg PO DAILY JOHN Stop: 01/04/17 09:59 Last Admin: 11/20/16 08:32 Dose: 20 mg Benazepril HCl (Lotensin) 20 mg PO DAILY JOHN Stop: 01/04/17 08:59 Last Admin: 11/20/16 08:33 Dose: 20 mg Budesonide (Pulmicort) 0.5 mg HHN BIDRT PRN PRN Reason: sob Stop: 01/04/17 10:59 Divalproex Sodium (Depakote Dr) 500 mg PO BID JOHN PRN Reason: Protocol Stop: 01/04/17 08:59 Last Admin: 11/20/16 08:32 Dose: 500 mg Docusate Sodium (Colace) 100 mg PO BID PRN PRN Reason: Constipation Last Admin: 11/13/16 10:00 Dose: 100 mg Finasteride (Proscar) 5 mg PO DAILY JOHN PRN Reason: Protocol Stop: 01/04/17 08:59 Last Admin: 11/20/16 08:34 Dose: 5 mg Ibuprofen (Motrin) 600 mg PO BID JOHN Stop: 01/05/17 08:59 Last Admin: 11/20/16 08:33 Dose: 600 mg Ipratropium [place] (Atrovent Neb 0.5mg/2.5ml) 0.5 mg HHN Q6HRT PRN PRN Reason: sob Stop: 01/09/17 18:59 Loperamide HCl (Imodium) 2 mg PO PRN PRN PRN Reason: Diarrhea Stop: 01/03/17 21:57 Lorazepam (Ativan) 0.5 mg PO Q4HR PRN; Protocol PRN Reason: Anxiety Stop: 12/04/16 20:33 Last Admin: 11/19/16 20:17 Dose: 0.5 mg Magnesium Hydroxide (Milk Of Magnesia) 30 ml PO HS PRN PRN Reason: Constipation Multivitamins/Vitamin C (Theragran) 1 tab PO DAILY [facility] Stop: 01/04/17 08:59 Last Admin: 11/20/16 08:32 Dose: 1 tab Risperidone (Risperdal) 1.5 mg PO BID JOHN PRN Reason: Protocol Stop: 01/15/17 08:59 Last Admin: 11/20/16 08:42 Dose: 1.5 mg Tamsulosin HCl (Flomax) 0.4 mg PO DAILY JOHN Stop: 01/04/17 08:59 Last Admin: 11/20/16 08:33 Dose: 0.4 mg Zolpidem Tartrate (Ambien) 5 mg PO HSMR1 PRN PRN Reason: Insomnia Stop: 01/03/17 20:33 Last Admin: 11/19/16 20:17 Dose: 5 mg General: alert, cachectic HEENT: NC/AT, PERRLA Lungs: CTAB Cardiovascular: RRR, Normal S1, Normal S2, without murmur Abdomen: soft, non-tender, non-distended, positive bowel sound Extremities: clear Neurological: no change, unable to follow command Internal Medicine Assmt/Plan - Assessment Assessment: HTN hx cva/tia schizophrenia hyponatremia - Plan Plan: fall precautions continue current tx Nutritional Asmnt/Malnutr-PDOC - Dietary Evaluation Malnutrition Findings (Please click <Entered> for more info): Nutritional Asmnt/Malnutrition Start: 11/06/16 17: 19 Text: Status: Complete Freq: Document 11/06/16 17:19 GSUN (Rec: 11/06/16 17:25 [email or web address] [email or web address]) Nutritional Asmnt/Malnutrition Patient General Information Nutritional Screening Moderate Risk Screening Diagnosis Unspecified psychosis, 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 Pt ambulates in wheelchair. Pt is talkative, however difficult to understand, unclear speech vs. dx mild to moderate mental retardation. 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 No significant wasting noted. Avg PO intake 100% of meals since adm, meeting nutritional needs. Current Diet Order/ Nutrition Support Low sodium Pertinent Medications Lipitor, Colace, MOM, Theragran Pertinent Labs 11/04: glucose 122H Nutritional Hx/Data Height 6 in Height (Calculated Centimeters) 15.2 Current Weight (lbs) 160 lb Weight (Calculated Kilograms) 72.6 Weight (Calculated Grams) 14836.8 [place] Body Weight 178 Weight Status Approriate GI Symptoms Food Allergies No Skin Integrity/Comment: Earnest 20. Skin intact. Current %PO Good (75-100%) Estimated Nutritional Goals BEE in Kcals: Using Current wt Calories/Kcals/Kg CBW 160lb/72.7kg Kcals Calculated 1818-2181kcal (25-30kcal/kg) Protein: Using Current wt Protein Calculated 73g (1g/kg) Fluid: ml 1818-2181ml (1ml/kcal) Nutritional Problem 1. Problem Problem No nutritional problem at this time. Intervention/Recommendation Comments 1. Continue with current diet order. Avg PO intake is adequate. Expected Outcomes/Goals Expected Outcomes/Goals 1. PO intake continue to meet at least 75% of estimated nutritional needs.
--- NOTE | 2016-11-21 07:46 | Discharge Summary ---
DATE OF DISCHARGE: 11/21/2016 FINAL DIAGNOSIS/PRIMARY DIAGNOSIS: Unspecified psychosis. SECONDARY DIAGNOSIS: Mental retardation, moderate. REASON FOR HOSPITALIZATION: The patient was admitted to the hospital because of increased agitation and irritability in the _[facility] where he lives. The patient was aggressive with the staff and peers and he was not able to follow any directions. HOSPITAL COURSE: The patient continued to be agitated and aggressive. Also, was severely irritable. He needed lots of redirections. The patient was given Depakote and started on Risperdal and Risperdal was increased to 1.5 mg twice a day and Depakote continued in a dose of 500 mg twice a day. The patient, in the beginning was still aggressive and agitated, but gradually his affect was brighter. The patient was less aggressive and less agitated. Also, interacting more with others and was easier to redirect him. He was still forgetful and confused, but he acted according to his mental disability. PHYSICAL EXAMINATION: Showed no acute medical problems. AFTER DISCHARGE PLANS: The patient was discharged from the hospital, return to _[facility] with plan to follow him up there. DISCHARGE ACTIVITY: As tolerant. DISCHARGE DIET: Regular. EXPECTED OUTCOME AFTER DISCHARGE: Fair if the patient continues to comply with taking his medications and follow up with his discharge plans. [facility]# [id number]
[2016-11-21] MEDS: Atorvastatin Calcium 10 MG TAB PO SCH (09:53)
[2016-11-21] MEDS: Multivitamin Tab PO SCH (09:55)
[2016-11-21 11:50] VITALS: BP 120/72
--- NOTE | 2016-11-21 15:26 | Internal Medicine Prog Note ---
Internal Medicine Subjective - Subjective Service Date: 11/21/16 Patient is:: awake, verbal, non-interactive, ambulating Per staff patient has:: no adverse event, noncompliant, confused, refusing care , refusing labs Internal Medicine Objective - Results Result Diagrams: 11/04/16 17:11/04/16: Recent Labs: Laboratory Last Values WBC 6.3 Th/cmm (4.8-10.8) 11/04/16: RBC 3.95 Mil/cmm (3.80-5.80) 11/04/16 17: Hgb 11.0 gm/dL (12.6-17.4) L 11/04/16: Hct 32.9 % (39.0-49.0) L 11/04/16: MCV 83.4 fl (80-99) 11/04/16: MCH 27.8 pg (27.0-31.0) 11/04/16 MCHC Differential 33.4 pg (28.0-36.0) 11/04/16: RDW 13.7 % (11.5-20.0) 11/04/16: Plt Count 304 Th/cmm (150-400) 11/04/16: MPV 6.8 fl 11/04/16: Neutrophils % 71.3 % (40.0-80.0) 11/04/16: Lymphocytes % 19.8 % (20.0-50.0) L 11/04/16: Monocytes % 7.3 % (2.0-10.0) 11/04/16: Eosinophils % 1.4 % (0.0-5.0) 11/04/16: Basophils % 0.2 % (0.0-2.0) 11/04/16: Sodium 132 mEq/L (136-145) L 11/04/16: Potassium 3.8 mEq/L (3.5-5.1) 11/04/16: Chloride 97 mEq/L (98-107) L 11/04/16: Carbon Dioxide 26.7 mEq/L (21.0-31.0) 11/04/16: Anion Gap 12.1 (7.0-16.0) 11/04/16 17: BUN 15 mg/dL (7-25) 11/04/16: Creatinine 0.7 mg/dL (0.7-1.3) 11/04/16 17: Est GFR ( Amer) TNP 11/04/16 17: Est GFR (Non-Af Amer) TNP 11/04/16: BUN/Creatinine Ratio 21.4 11/04/16: Glucose 122 mg/dL (70-105) H 11/04/16 17: Whole Bld Lactic Acid 2.70 mmol/L (0.60-1.99) H* 11/04/16: Calcium 9.9 mg/dL (8.6-10.3) 11/04/16: Total Bilirubin 0.3 mg/dL (0.3-1.0) 11/04/16: AST 18 U/L (13-39) 11/04/16: ALT 14 U/L (7-52) 11/04/16: Alkaline Phosphatase 58 U/L (34-104) 11/04/16: Troponin I 0.01 ng/mL (0.01-0.05) 11/04/16: Total Protein 7.5 gm/dL (6.0-8.3) 11/04/16: Albumin 3.9 gm/dL (4.2-5.5) L 11/04/16: Globulin 3.6 gm/dL 11/04/16: Albumin/Globulin Ratio 1.1 (1.0-1.8) 11/04/16 17: Triglycerides 53 mg/dL (<150) 11/04/16: Cholesterol 131 mg/dL (<200) 11/04/16: LDL Cholesterol Direct 66 mg/dL (75-193) L 11/04/16: HDL Cholesterol 50 mg/dL (23-92) 11/04/16: TSH 1.69 uIU/ml (0.34-5.60) 11/04/16: Urine Source RANDOM 11/04/16 20:00 Urine Color YELLOW 11/04/16 20:00 Urine Clarity CLEAR (CLEAR) 11/04/16 20:00 Urine pH 6.5 11/04/16 20:00 Ur Specific [place] 1.010 (1.005-1.030) 11/04/16 20:00 Urine Protein NEGATIVE mg/dL (NEGATIVE) 11/04/16 20:00 Urine Glucose (UA) NEGATIVE mg/dL (NEGATIVE) 11/04/16 20:00 Urine Ketones NEGATIVE mg/dL (NEGATIVE) 11/04/16 20:00 Urine Blood SMALL (NEGATIVE) H 11/04/16 20:00 Urine Nitrate NEGATIVE (NEGATIVE) 11/04/16 20:00 Urine Bilirubin NEGATIVE (NEGATIVE) 11/04/16 20:00 Urine Urobilinogen 0.2 E.U./dL (0.2 - 1.0) 11/04/16 20:00 Ur Leukocyte Esterase TRACE (NEGATIVE) H 11/04/16 20:00 Urine RBC 2-5 /hpf (0-5) H 11/04/16 20:00 Urine WBC 2-5 /hpf (0-5) H 11/04/16 20:00 Ur Epithelial Cells NONE SEEN /lpf (FEW) 11/04/16 20:00 Urine Bacteria NONE SEEN /hpf (NONE SEEN) 11/04/16 20:00 Salicylates < 25.0 mg/L (30.0-100.0) L 11/04/16 17:29 Urine Opiates Screen NEGATIVE (NEGATIVE) 11/04/16 20:00 Urine Methadone Screen NEGATIVE (NEGATIVE) 11/04/16 20:00 Acetaminophen < 10.0 ug/mL (10.0-30.0) L 11/04/16 17:29 Ur Barbiturates Screen NEGATIVE (NEGATIVE) 11/04/16 20:00 Valproic Acid 46.1 ug/mL (50.0-100.0) L 11/06/16 10:55 Ur Tricyclics Screen NEGATIVE (NEGATIVE) 11/04/16 20:00 Ur Phencyclidine Scrn NEGATIVE (NEGATIVE) 11/04/16 20:00 Amphetamines Screen NEGATIVE (NEGATIVE) 11/04/16 20:00 U Methamphetamines Scrn NEGATIVE (NEGATIVE) 11/04/16 20:00 U Benzodiazepines Scrn NEGATIVE (NEGATIVE) 11/04/16 20:00 U Cocaine Metab Screen NEGATIVE (NEGATIVE) 11/04/16 20:00 U Cannabinoids Screen NEGATIVE (NEGATIVE) 11/04/16 20:00 Ethyl Alcohol < 10 mg/dL (0-10) 11/04/16 17:29 RPR NONREACTIVE (NONREACTIVE) 11/04/16 17:29 - Physical Exam Vitals and I&O: Vital Signs Temp 98.1 F 11/20/16 14:59 Pulse 79 11/21/16 09:57 Resp 18 11/21/16 07:21 BP 120/72 11/21/16 11:50 Pulse Ox 98 11/21/16 07:21 Intake & Output 11/20/16 11/21/16 11/21/16 18:59 06:59 18:59 Intake Total 800 Balance 800 Intake: Oral 800 Other: # Voids 3 # Bowel Movements 1 Active Medications: Current Medications Acetaminophen (Tylenol) 650 mg PO Q4HR PRN PRN Reason: Mild Pain / Temp above 100 Stop: 01/03/17 20:33 Last Admin: 11/06/16 03:55 Dose: 650 mg Al Hydrox/Mg Hydrox/Simethicone (Maalox) 30 ml PO Q4HR PRN PRN Reason: GI DISTRESS Stop: 01/03/17 20:33 Albuterol Sulfate (Albuterol 2.5mg/3ml Neb Ud) 2.5 mg HHN Q4H PRN PRN Reason: sob Albuterol Sulfate (Albuterol 2.5mg/3ml Neb Ud) 2.5 mg HHN Q6HRT PRN PRN Reason: sob Stop: 01/04/17 09:59 Amlodipine Besylate (Norvasc) 5 mg PO DAILY JOHN Stop: 01/04/17 08:59 Last Admin: 11/21/16 09:56 Dose: 5 mg Aspirin (Ecotrin) 81 mg PO DAILY JOHN Stop: 01/04/17 08:59 Last Admin: 11/21/16 09:59 Dose: 81 mg Atorvastatin Calcium (Lipitor) 20 mg PO DAILY JOHN Stop: 01/04/17 09:59 Last Admin: 11/21/16 09:53 Dose: 20 mg Benazepril HCl (Lotensin) 20 mg PO DAILY JOHN Stop: 01/04/17 08:59 Last Admin: 11/21/16 09:57 Dose: 20 mg Budesonide (Pulmicort) 0.5 mg HHN BIDRT PRN PRN Reason: sob Stop: 01/04/17 10:59 Divalproex Sodium (Depakote Dr) 500 mg PO BID JOHN PRN Reason: Protocol Stop: 01/04/17 08:59 Last Admin: 11/21/16 09:54 Dose: 500 mg Docusate Sodium (Colace) 100 mg PO BID PRN PRN Reason: Constipation Last Admin: 11/13/16 10:00 Dose: 100 mg Finasteride (Proscar) 5 mg PO DAILY JOHN PRN Reason: Protocol Stop: 01/04/17 08:59 Last Admin: 11/21/16 09:57 Dose: 5 mg Ibuprofen (Motrin) 600 mg PO BID JOHN Stop: 01/05/17 08:59 Last Admin: 11/21/16 09:55 Dose: 600 mg Ipratropium [place] (Atrovent Neb 0.5mg/2.5ml) 0.5 mg HHN Q6HRT PRN PRN Reason: sob Stop: 01/09/17 18:59 Loperamide HCl (Imodium) 2 mg PO PRN PRN PRN Reason: Diarrhea Stop: 01/03/17 21:57 Lorazepam (Ativan) 0.5 mg PO Q4HR PRN; Protocol PRN Reason: Anxiety Stop: 12/04/16 20:33 Last Admin: 11/20/16 15:30 Dose: 0.5 mg Magnesium Hydroxide (Milk Of Magnesia) 30 ml PO HS PRN PRN Reason: Constipation Multivitamins/Vitamin C (Theragran) 1 tab PO DAILY JOHN Stop: 01/04/17 08:59 Last Admin: 11/21/16 09:55 Dose: 1 tab Risperidone (Risperdal) 1.5 mg PO BID JOHN PRN Reason: Protocol Stop: 01/15/17 08:59 Last Admin: 11/21/16 09:53 Dose: 1.5 mg Tamsulosin HCl (Flomax) 0.4 mg PO DAILY JOHN Stop: 01/04/17 08:59 Last Admin: 11/21/16 09:58 Dose: 0.4 mg Zolpidem Tartrate (Ambien) 5 mg PO HSMR1 PRN PRN Reason: Insomnia Stop: 01/03/17 20:33 Last Admin: 11/19/16 20:17 Dose: 5 mg General: alert, cachectic HEENT: NC/AT, PERRLA Lungs: CTAB Cardiovascular: RRR, Normal S1, Normal S2, without murmur Abdomen: soft, non-tender, non-distended, positive bowel sound Extremities: clear Neurological: no change, unable to follow command Internal Medicine Assmt/Plan - Assessment Assessment: HTN hx cva/tia schizophrenia hyponatremia - Plan Plan: fall precautions continue current tx Nutritional Asmnt/Malnutr-PDOC - Dietary Evaluation Malnutrition Findings (Please click <Entered> for more info): Nutritional Asmnt/Malnutrition Start: 11/06/16 17: 19 Text: Status: Complete Freq: Document 11/06/16 17:19 GSUN (Rec: 11/06/16 17:25 [email or web address] [email or web address]) Nutritional Asmnt/Malnutrition Patient General Information Nutritional Screening Moderate Risk Screening Diagnosis Unspecified psychosis, 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 Pt ambulates in wheelchair. Pt is talkative, however difficult to understand, unclear speech vs. dx mild to moderate mental retardation. 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 No significant wasting noted. Avg PO intake 100% of meals since adm, meeting nutritional needs. Current Diet Order/ Nutrition Support Low sodium Pertinent Medications Lipitor, Colace, MOM, Theragran Pertinent Labs 11/04: glucose 122H Nutritional Hx/Data Height 6 in Height (Calculated Centimeters) 15.2 Current Weight (lbs) 160 lb Weight (Calculated Kilograms) 72.6 Weight (Calculated Grams) 74848.8 [place] Body Weight 178 Weight Status Approriate GI Symptoms Food Allergies No Skin Integrity/Comment: Earnest 20. Skin intact. Current %PO Good (75-100%) Estimated Nutritional Goals BEE in Kcals: Using Current wt Calories/Kcals/Kg CBW 160lb/72.7kg Kcals Calculated 1818-2181kcal (25-30kcal/kg) Protein: Using Current wt Protein Calculated 73g (1g/kg) Fluid: ml 1818-2181ml (1ml/kcal) Nutritional Problem 1. Problem Problem No nutritional problem at this time. Intervention/Recommendation Comments 1. Continue with current diet order. Avg PO intake is adequate. Expected Outcomes/Goals Expected Outcomes/Goals 1. PO intake continue to meet at least 75% of estimated nutritional needs.
--- NOTE | 2016-11-21 21:35 | Progress Notes ---
DATE: 11/20/2016 SUBJECTIVE: Chart reviewed and the patient interviewed. Also discussed the patient's condition with the staff and reviewed records and labs. The patient is still anxious and is still confused. The patient also is still restless and he still needs redirections. Easier to redirect him. The patient denies any suicidal or homicidal ideations, but is still confused and needs redirections. At the same time, discussed with immigration case manager discharge plans and he is if he can return there. ASSESSMENT: The patient is still agitated and is still psychotic. TREATMENT PLAN: We will continue monitoring his medications and his condition closely and we will continue to work on his discharge plans. JOB# [id number]
== END 2016-11-21 17:50 | disposition home or self-care (01) | DRG 885 ==
LOC: ER 16:54 → GERO 19:46
PROVIDERS: ADMIT Psychiatry & Neurology Psychiatry; ATTEND Psychiatry & Neurology Psychiatry
DX: F29 Unspecified psychosis not due to a substance or known physiological condition (principal); F03.90 Unspecified dementia, unspecified severity, without behavioral disturbance, psychotic disturbance, mood disturbance, and anxiety; E87.1 Hypo-osmolality and hyponatremia; F20.9 Schizophrenia, unspecified; D64.9 Anemia, unspecified; G40.909 Epilepsy, unspecified, not intractable, without status epilepticus; F71 Moderate intellectual disabilities; I10 Essential (primary) hypertension; Z86.73 Personal history of transient ischemic attack (TIA), and cerebral infarction without residual deficits
CPT/HCPCS: 36415-UA; 70450-TC; 71010-TC; 80053-TC; 80061-TC; 80164-TC; 80307; 80320-TC; 80329-TC; 81001-TC; 83605; 84443-TC; 84484-TC; 85025-TC; 86592-TC; 90779; 90899; 93005; 94640; 94760; J1200; J1630; J7613; Z7610